=== PATIENT | male | born 1975 | race Caucasian/White ===

== ENCOUNTER 2021-05-01 21:03 | Emergency (ER) | payer SELFPAY ==
[2021-05-01 21:03] VITALS: BP 166/90; PULSE 94; RESP 16; TEMP 36.4; O2SAT 99; BMI 33.4
--- NOTE | 2021-05-01 21:27 | RAD_ITS ---
STUDY: X-RAY - LEFT HAND REASON FOR EXAM: Male, 46 years old. Check for foreign body after drill related injury TECHNIQUE: 2 radiographic view(s) of the hand. COMPARISON: None. FINDINGS: Normal radiocarpal articulation. Normal distal radioulnar joint. Normal visualized carpal bones. Normal carpal articulations Normal carpometacarpal articulation of the thumb. Normal second through fifth carpometacarpal joints. Normal metacarpi. Normal metacarpophalangeal joint of the thumb. Normal interphalangeal joint of the thumb. Normal proximal and distal phalanges of the thumb. Normal metacarpophalangeal joints of the second through fifth fingers. Normal proximal and distal interphalangeal joints of the second through fifth fingers. Normal phalanges of the second through fifth fingers. Metallic density foreign body ulnar to the fifth metacarpal. RAD/Hand 2 Views IMPRESSION: Metallic density foreign body lateral to the fifth metacarpal. Electronically Signed: Rainer Roberto MD at 22:19 EDT Tel , Service support ,
[2021-05-01] MEDS: Diphth,Pertuss(Acell),Tet Vac 0.5 ML Vial IM (22:48)
[2021-05-01] MEDS: Cephalexin 250 MG Capsule 500 MG PO (22:48)
--- NOTE | 2021-05-01 23:50 | EX.ED.GENINJ ---
HPI History of Present Illness Chief Complaint: Trauma Informant: patient Narrative Narrative: Patient was using a drill to drill through the thermostat. He is right-hand dominant. He drilled accidentally into the lateral aspect of his left index finger overlying the proximal phalanx. It was mostly on the volar side. He is not sure how deep it went. He did state that it bled initially but then stopped quickly by itself. No immunosuppression. Unknown tetanus. Nothing really makes symptoms better or worse. It does not hurt that much. PFSH PFSH Home Medications Omeprazole [Prilosec] 40 mg PO DAILY 05/09/17 [History Last Taken Unknown] cephalexin 500 mg PO Q6 #28 cap 05/01/21 [Rx Last Taken Unknown] Allergy/AdvReac Type Severity Reaction Status Date / Time No Known Allergies Allergy Verified 05/01/21 21:06 Social History Smoking Status: Never smoker ROS ROS ED Constitutional Constitutional ED: Denies fever(s) Gastrointestinal Gastrointestinal: Denies nausea or vomiting Musculoskeletal Musculoskeletal: Reports other Details: Finger pain as in history of present illness. Integumentary Reports other Details: Puncture as in history of present illness Neurologic Neurologic: Denies paresthesias or weakness Hematologic/Lymphatic Hematologic/Lymphatic: Denies easy bleeding or easy bruising EXAM Physical Exam Const Vital Signs: 05/01/21 21:03 05/01/21 21:19 Temperature 97.6 F L Temperature Source Temporal Pulse Rate 94 Respiratory Rate 16 Respiratory Effort Normal Respiratory Depth Normal Respiratory Pattern Normal Blood Pressure 166/90 H Blood Pressure Mean 115 Pulse Ox 99 Oxygen Delivery Method Room Air Room Air Positive well nourished and well developed General Appearance ED: well developed and NAD HEENT atraumatic Resp normal respiratory effort Extremity Extremity Narrative: Patient does have what appears to be a puncture injury consistent with his story. It is on the lateral slightly volar aspect of the left index finger overlying the proximal phalanx. Both profundus and superficial tendons are intact and normal. They are not painful to move. There is no distal numbness or tingling. He has good capillary refill diffusely. No sign of digital vessel or nerve injury clinically. Neuro no sensory deficits noted Sensorium / Orientation: alert Motor Exam: strength 5/5 throughout Skin Skin Narrative: Puncture as above. MDM MDM MDM Narrative Medical decision making narrative: X-rays was done. There is metallic foreign body in the hand but its lateral to the fifth metacarpal nowhere near the area of injury. The area was already soaked and cleaned. We will start him on antibiotics. I discussed infection including signs of flexor tenosynovitis and reasons to return with him. Radiography Diagnostic Testing: Radiology Impression Hand X-Ray 05/01/21 21:27 IMPRESSION: Metallic density foreign body lateral to the fifth metacarpal. Electronically Signed: Rainer Roberto MD at 22:19 EDT Tel , Service support , Discharge Plan Triage Chief Complaint: Trauma ED Provider: Avelino Smart Dx/Rx/DC Orders Clinical Impression: Puncture wound of left index finger Instructions: ED Puncture Wound (General) Prescriptions: New cephalexin [cephalexin] 500 MG capsule 500 mg PO Q6 Qty: 28 RF: 0 No Action Omeprazole [Prilosec] 40 MG capsule 40 mg PO DAILY RF: 0 Primary Care Provider: Care Physician,No Primary Referrals: Alireza Lara DO [STAFF PHYSICIAN] - 3-5 Days if not improving Care Physician,No Primary [Primary Care Provider] - Disposition Disposition: Home, Self Care
== END 2021-05-02 00:04 | disposition home or self-care (01) ==
PROVIDERS: Emergency Provider Emergency Medicine
DX: S61.231A Puncture wound without foreign body of left index finger without damage to nail, initial encounter (principal); Z23 Encounter for immunization; W29.8XXA Contact with other powered hand tools and household machinery, initial encounter; Y93.9 Activity, unspecified; Y92.9 Unspecified place or not applicable; Y99.9 Unspecified external cause status
CPT/HCPCS: 73120; 90471; 90715; 99283

== ENCOUNTER 2021-08-20 15:30 | Emergency (ER) | payer BC, SELFPAY ==
[2021-08-20 15:31] VITALS: BP 117/79; PULSE 96; RESP 20; TEMP 36.7; O2SAT 95; BMI 31.8
--- NOTE | 2021-08-20 15:48 | EKG12_ITS ---
Test Reason : SOB Blood Pressure : / mmHG Vent. Rate : 096 BPM Atrial Rate : 096 BPM P-R Int : 128 ms QRS Dur : 100 ms QT Int : 346 ms P-R-T Axes : -05 058 012 degrees QTc Int : 437 ms Normal sinus rhythm Normal ECG Confirmed by ARABELLA LEBLANC, ALMA ([id number]), editor in chief MAK ZHENG ([id number]) on 08/24/2021 10:03:46 AM Referred By: PL Confirmed By:ALMA BELL MD
--- NOTE | 2021-08-20 15:49 | EX.ED.DYSGE1 ---
HPI History of Present Illness Chief Complaint: Shortness of Breath Informant: patient and other (Note sent in by .) Narrative Narrative: Patient had positive Covid test on the . He is not exactly sure when he started with symptoms. He had a little bit of GI upset on the through . This resolved. He felt fine through the . Then about the he started getting achy and fevers. Some nasal congestion. If that was the start of his Covid, he would be about day 7 of the symptoms. He has had some cough and occasional clear sputum. No blood. He is not short of breath. He does have myalgias. He had some slight headaches but that is improving. He has had diarrhea but not nausea and vomiting. His appetite is down. It seems like one of his 's big concerns is that he is not eating and drinking enough. He is able to eat and drink he is just not interested. He did not have Covid vaccines. He is not a smoker. He has no chronic medical conditions. He has no personal history of DVT PE. He has no travel surgery or immobilization. No family history of DVT or PE. He has had no hemoptysis, chest pain, pleuritic pain or leg pain or swelling. PFSH PFSH Home Medications Omeprazole [Prilosec] 40 mg PO DAILY 05/09/17 [History Last Taken Unknown] cephalexin 500 mg PO Q6 #28 cap 05/01/21 [Rx Last Taken Unknown] Allergy/AdvReac Type Severity Reaction Status Date / Time No Known Allergies Allergy Verified 05/01/21 21:06 Social History Smoking Status: Never smoker ROS ROS ED Constitutional Constitutional ED: Reports chills, fever(s) and subjective; Denies weight loss Eyes Eyes: Denies blurry vision or change in vision ENT ENT ED: Reports rhinorrhea; Denies sore throat Cardiovascular Cardiovascular: Denies chest pain or palpitations Respiratory/Chest Respiratory/Chest: Reports cough and sputum; Denies dyspnea or dyspnea on exertion Gastrointestinal Gastrointestinal: Reports diarrhea; Denies abdominal pain, nausea or vomiting Genitourinary Genitourinary ED: Denies dysuria or hematuria Musculoskeletal Musculoskeletal: Reports myalgias Integumentary Denies rash Neurologic Neurologic: Denies headache(s) Psychiatric Psychiatric: Denies anxiety or depression Endocrine Endocrinology: Denies polydipsia or polyuria Allergic/Immunologic Allergic/Immunologic ED: Denies urticaria EXAM Physical Exam Const Vital Signs: 08/20/21 15:31 08/20/21 16:05 08/20/21 16:23 Temperature 98.1 F Temperature Source Oral Pulse Rate 96 92 Respiratory Rate 20 H 18 Respiratory Effort Short of Breath Blood Pressure 117/79 Blood Pressure Mean 91 Pulse Ox 95 Oxygen Delivery Method Room Air Room Air Positive well nourished and well developed General Appearance ED: well developed and NAD; Negative for cyanotic, diaphoretic or pallor HEENT Reports moist mucous membranes Eyes PERRL Neck no JVD Chest Wall inspection of chest normal Resp normal respiratory effort and No clear to auscultation bilaterally Effort and Inspection: Negative for pain with movement Auscultation: rhonchi; Negative for rales, wheezes or diminished lung sounds Cardio regular rate and regular rhythm GI normal to inspection, nondistended, normoactive bowel sounds and non-tender Palpation: soft Back/Spine no CVA tenderness Extremity normal to inspection General Extremety ED: Negative for edema or tenderness General Extremity: Negative for edema Neuro oriented x3 Sensorium / Orientation: alert Psych mental status grossly normal Skin no rashes or lesions noted General Skin Exam: Negative for jaundice or pallor MDM MDM MDM Narrative Medical decision making narrative: Patient CBC shows a low white count consistent with positive Covid. Electrolytes are unremarkable. There is no sign of significant dehydration. Chest x-ray is consistent with multifocal infiltrates consistent with Covid. We are going to walk him. If he is not hypoxic he can go home. The lowest sat we have seen sitting still was 90%. However, when he walked his sats went up to 95% he did much better. He is about 1 week into his symptoms. Because of his BMI we can get him monoclonal therapy. He does not meet criteria for Decadron. We will get him home at this time. Monoclonal antibody reference sheet was filled out for the patient. We discussed reasons to return. Lab Data Attestation: I reviewed the patient's lab results. Labs: Laboratory Results - last 24 hr 08/20/21 08/20/21 15:55 15:55 WBC 4.1 L RBC 5.57 Hgb 15.8 Hct 47.3 MCV 84.9 MCH 28.4 MCHC 33.4 RDW Std Deviation 38.5 RDW Coeff of Viri 12.4 Plt Count 125 L MPV 11.0 Immature Gran % (Auto) 0.200 Neut % (Auto) 74.0 H Lymph % (Auto) 17.7 L Mcpherson % (Auto) 7.9 Eos % (Auto) 0.0 Baso % (Auto) 0.2 Absolute Neuts (auto) 3.0 Absolute Lymphs (auto) 0.72 L Nucleated RBC % 0 Sodium 136 Potassium 3.7 Chloride 101 Carbon Dioxide 28.0 Anion Gap 7 BUN 16 Creatinine 1.21 Estim Creat Clear Calc 83.73 Est GFR (MDRD) Af Amer 83 Est GFR (MDRD) Non-Af 69 BUN/Creatinine Ratio 13.2 Glucose 105 Calcium 8.8 Radiography Diagnostic Testing: Clinical Impression(s) from Imaging Studies Chest X-Ray 08/20/21 16:05 IMPRESSION: Multifocal infiltrates with features commonly reported with COVID pneumonia. Electronically Signed: Zak Gunderson MD (Brooks) at 16:36 EST , Service support , Discharge Plan Triage Chief Complaint: Shortness of Breath ED Provider: Avelino Smart Dx/Rx/DC Orders Clinical Impression: Pneumonia due to 2019 novel coronavirus, Myalgia Instructions: Coronavirus Disease 2019 (COVID-19): Caring for Yourself or Others Prescriptions: No Action Omeprazole [Prilosec] 40 MG capsule 40 mg PO DAILY RF: 0 cephalexin [cephalexin] 500 MG capsule 500 mg PO Q6 Qty: 28 RF: 0 Primary Care Provider: Care Physician,No Primary Referrals: Cathie Robins DO [STAFF PHYSICIAN] - 1 Week if not improving Care Physician,No Primary [Primary Care Provider] - Disposition Disposition: Home, Self Care
[2021-08-20 16:04] LABS: Absolute Lymphocyte Count 0.72 X10^3/uL (0.83-4.51); Basophil# 0.01 X10^3/uL; Basophil% 0.2 % (0-1); Hematocrit 47.3 % (40-54); Hemoglobin 15.8 g/dL (13.0-16.5); Lymphocyte # 0.72 X10^3/ul (0.83-4.51); Lymphocyte % 17.7 % (19-41); Mean Corp Hgb Conc 33.4 g/dL (32-36); Mean Corpuscular Hgb 28.4 pg (27.0-32.0); Mean Corpuscular Volume 84.9 fL (80-94); Monocyte# 0.32 X10^3/uL; Monocyte% 7.9 % (0-10); NRBC Flagged by Analyzer 0 % (0-5); Platelet Count 125 K/mm3 (150-450); RBC Distribution Width CV 12.4 % (11.6-14.6); RBC Distribution Width SD 38.5 fl (35.1-43.9); Red Blood Count 5.57 M/mm3 (4.6-6.2); White Blood Count 4.1 K/mm3 (4.4-11.0)
[2021-08-20] MEDS: Ipratropium/Albuterol Sulfate 3 ML AMPUL.NEB INHALATION (16:04)
[2021-08-20 16:05] VITALS: PULSE 92; RESP 18
--- NOTE | 2021-08-20 16:05 | RAD_ITS ---
STUDY: X-RAY CHEST REASON FOR EXAM: Male, 46 years old. covid TECHNIQUE: AP COMPARISON: None. FINDINGS: Multifocal infiltrates with features commonly reported with COVID pneumonia. There is no demonstrated pleural abnormality. Normal size heart. Normal mediastinum and enoc. Normal visualized pulmonary arteries. Normal visualized aortic arch and descending thoracic aorta. Normal visualized thoracic spine. Normal visualized ribs, clavicles, and shoulders. There is no demonstrated abnormality of the visualized soft tissue structures of the upper abdomen. RAD/Chest 1 View (Portable) IMPRESSION: Multifocal infiltrates with features commonly reported with COVID pneumonia. Electronically Signed: Zak Gunderson MD (Brooks) at 16:36 EST , Service support ,
[2021-08-20 16:23] VITALS: O2SAT 95
[2021-08-20 16:26] LABS: Anion Gap 7 (5-15); BUN 16 mg/dL (7-18); BUN/Creat Ratio 13.2 RATIO (10-20); Calcium,Total 8.8 mg/dL (8.5-10.1); Chloride 101 mmol/L (98-107); Creatinine, Serum 1.21 mg/dL (0.70-1.30); EST Glomerular Filtration Rate 69 mL/min (>60); Est Glom Filt Rate - Afr Amer 83 mL/min (>60); Estimated Creatinine Clearance 83.73 ml/min; Glucose 105 mg/dL (74-106); Potassium 3.7 mmol/L (3.5-5.1); Sodium Level 136 mmol/L (136-145)
[2021-08-20 17:26] VITALS: O2SAT 90
[2021-08-20 18:12] VITALS: RESP 18
== END 2021-08-20 18:16 | disposition home or self-care (01) ==
PROVIDERS: Emergency Provider Emergency Medicine
DX: U07.1 COVID-19 (principal); J12.82 Pneumonia due to coronavirus disease 2019
CPT/HCPCS: 71045; 80048; 85025; 93005; 94640; 99283; A4216

== ENCOUNTER 2021-08-22 18:26 | Outpatient (CLI) | payer SELFPAY ==
[2021-08-22 18:29] VITALS: BP 105/72; PULSE 110; RESP 24; TEMP 37.6; O2SAT 86
--- NOTE | 2021-08-22 18:40 | NURSING ---
Pt taken to ED via wheelchair since O2 sat 86-87% on RA. Pt no longer qualifies for monoclonal infusion. Dr Oneal notified. Pt placed on O2 at 2L.
== END 2021-08-22 23:59 | disposition home or self-care (01) ==
LOC: MS3OUT 18:27 → MS3 18:27
PROVIDERS: Referring Provider Emergency Medicine; Visit Provider Emergency Medicine
DX: Z23 Encounter for immunization (principal); U07.1 COVID-19
CPT/HCPCS: Q0240

== ENCOUNTER 2021-08-22 18:50 | Inpatient (IN) | payer BC, SELFPAY ==
[2021-08-22] VITALS (10 sets, daily range): BP systolic 109–121; BP diastolic 71–86; PULSE 72–111; RESP 2–24; TEMP 35.6–37.3; O2SAT 90–97; BMI 31.8; BMI 31.7
--- NOTE | 2021-08-22 19:57 | CT_ITS ---
STUDY: CTA CHEST REASON FOR EXAM: Male, 46 years old. covid pulmonary embolism RADIATION DOSAGE (If Supplied By Facility): CTDIvol = ( 11.39 ) mGy, DLP = ( 520.96 ) mGycm TECHNIQUE: The examination was performed with the intravenous administration of IV 100mL Isovue-370. Post-processing of the angiographic images was performed, with multiplanar reformation and 3D reconstruction. Individualized dose optimization techniques were used for this CT. COMPARISON: Chest x-ray dated August 20, 2021 FINDINGS: Multiple primarily peripheral islands of consolidation are scattered throughout both lungs with superimposed groundglass edema which is a classic finding of Covid 19 pneumonia. Mild reactive hilar adenopathy is also present. Trace bilateral pleural effusions noted. Normal enhancement of the main pulmonary artery and right and left pulmonary arteries. There is limited enhancement of the bilateral peripheral pulmonary arteries, but no large or obvious evidence of pulmonary embolus. There is no demonstrated pulmonary embolism of the main pulmonary artery branches. Normal thoracic aorta and visualized great vessels. There is no demonstrated aortic dissection. Normal heart and pericardium. Normal mediastinum. Normal hilar regions. Normal visualized trachea and bronchi. The lungs are well expanded. Normal pleura. Normal chest wall structures. Normal osseous structures. Unremarkable visualized upper abdomen. Mildly enlarged fatty liver noted. IMPRESSION: Moderate bilateral pneumonia with classic features of Covid 19 1. Multiple primarily peripheral islands of consolidation are scattered throughout both lungs with superimposed groundglass edema which is a classic finding of Covid 19 pneumonia. Mild reactive hilar adenopathy is also present. Trace bilateral pleural effusions noted. 2. There is limited enhancement of the bilateral peripheral pulmonary arteries, but no large or obvious evidence of pulmonary embolus. There is no demonstrated pulmonary embolism of the main pulmonary artery branches. Electronically Signed: Peter Schmidt MD at 21:10 EST , Service support , CT/CTA Chest W/WO Contrast
--- NOTE | 2021-08-22 19:58 | EKG12_ITS ---
Test Reason : SOB Blood Pressure : / mmHG Vent. Rate : 105 BPM Atrial Rate : 105 BPM P-R Int : 136 ms QRS Dur : 098 ms QT Int : 332 ms P-R-T Axes : 007 080 012 degrees QTc Int : 438 ms Sinus tachycardia NONSPECIFIC TWAVE ABNORMALITY Confirmed by ARABELLA LEBLANC, ALMA ([id number]), subeditor MAK ZHENG ([id number]) on 08/23/2021 11:11:47 AM Referred By: JACY Confirmed By:ALMA BELL MD
--- NOTE | 2021-08-22 19:59 | EDS_ITS ---
HPI History of Present Illness Chief Complaint: Shortness of Breath Informant: patient Narrative Narrative: 46-year-old male presenting to the emergency department with hypoxemia. Patient states that he has been sick for about a month but there is a period of time where he felt pretty good it was felt that his Covid symptoms has been since around the or . He was seen in the emergency department on 08/21/21. He got set up for monoclonal antibodies which he went to today they noted a pulse ox of 86%. Patient states the past couple days have seems significantly worse in terms of his breathing. He notes cough with sputum production. PFSH PFSH Medical History no medical history Home Medications Omeprazole [Prilosec] 40 mg PO DAILY 05/09/17 [History Last Taken Unknown] Allergy/AdvReac Type Severity Reaction Status Date / Time No Known Allergies Allergy Verified 08/22/21 18:53 Surgical History no surgical history Social History Smoking Status: Never smoker substance use type: does not use ROS ROS ED Constitutional Constitutional ED: Reports fever(s); Denies chills or weight loss Eyes Eyes: Denies change in vision or diplopia ENT ENT ED: Reports rhinorrhea and sore throat; Denies ear pain Cardiovascular Cardiovascular: Denies chest pain, orthopnea, palpitations or racing heartbeat Respiratory/Chest Respiratory/Chest: Reports cough, dyspnea, dyspnea on exertion and sputum; Denies orthopnea Gastrointestinal Gastrointestinal: Reports diarrhea and nausea; Denies abdominal pain or vomiting Genitourinary Genitourinary ED: Denies dysuria, hematuria or urinary frequency Musculoskeletal Musculoskeletal: Reports myalgias; Denies arthralgias Integumentary Denies abscess or rash Neurologic Neurologic: Reports headache(s); Denies weakness Psychiatric Psychiatric: Denies anxiety, depression, suicidal ideation or suicidal thoughts Endocrine Endocrinology: Denies polydipsia, polyphagia or polyuria Allergic/Immunologic Allergic/Immunologic ED: Denies mouth swelling, tongue swelling or urticaria EXAM Physical Exam Const Vital Signs: 08/22/21 18:50 08/22/21 19:42 08/22/21 19:57 Temperature 96.1 F L Temperature Source Temporal Pulse Rate 111 H 104 H Respiratory Rate 16 2 L 24 H Respiratory Effort Respiratory Depth Respiratory Pattern Blood Pressure 112/71 121/86 H Blood Pressure Mean 84 97 Pulse Ox 93 91 91 Oxygen Delivery Method Nasal Cannula Nasal Cannula Nasal Cannula Oxygen Flow Rate (L/min) 2 2 2 08/22/21 19:58 08/22/21 21:15 Temperature Temperature Source Pulse Rate 72 Respiratory Rate 20 H Respiratory Effort Short of Breath Respiratory Depth Deep Respiratory Pattern Hyperpnea Blood Pressure 118/78 Blood Pressure Mean 91 Pulse Ox 90 Oxygen Delivery Method Nasal Cannula Nasal Cannula Oxygen Flow Rate (L/min) 2 2 Positive well nourished and well developed General Appearance ED: well developed HEENT Reports normocephalic, head/scalp atraumatic, TM's clear and moist mucous membranes atraumatic Tympanic Membrane ED: Yes TM's clear Eyes PERRL and EOMs intact bilaterally Neck no lymphadenopathy, supple and no JVD Resp normal respiratory effort and clear to auscultation bilaterally Cardio regular rhythm and no murmurs Rate: tachycardic GI normal to inspection, nondistended, normoactive bowel sounds, non-tender and no masses Palpation: soft Back/Spine no CVA tenderness and normal ROM Extremity normal to inspection General Extremety ED: Negative for edema General Extremity: Negative for edema Neuro oriented x3 and CN's II-XII intact bilaterally Sensorium / Orientation: alert Motor Exam: strength 5/5 throughout Psych mental status grossly normal Mood & Affect: Negative for depressed or tearful Skin no rashes or lesions noted and no wounds Rashes: no rashes MDM MDM MDM Narrative Medical decision making narrative: CBC BMP negative. The CTA does not demonstrate a pulmonary embolism but does demonstrate bilateral areas of infiltrate. On 4 L the patient is hypoxic with ambulation. Patient received a dose of Decadron. I will speak with the hospitalist regarding admission. Lab Data Attestation: I reviewed the patient's lab results. Labs: Laboratory Results - last 24 hr 08/22/21 08/22/21 19:50 19:50 WBC 6.0 RBC 5.37 Hgb 15.1 Hct 45.1 MCV 84.0 MCH 28.1 MCHC 33.5 RDW Std Deviation 37.8 RDW Coeff of Viri 12.3 Plt Count 174 MPV 11.0 Immature Gran % (Auto) 0.800 Neut % (Auto) 83.6 H Lymph % (Auto) 7.2 L Callahan % (Auto) 8.2 Eos % (Auto) 0.0 Baso % (Auto) 0.2 Absolute Neuts (auto) 5.0 Absolute Lymphs (auto) 0.43 L Nucleated RBC % 0 Differential Comment SCANNED Sodium 134 L Potassium 3.9 Chloride 100 Carbon Dioxide 27.0 Anion Gap 7 BUN 22 H Creatinine 1.24 Estim Creat Clear Calc 81.70 Est GFR (MDRD) Af Amer 81 Est GFR (MDRD) Non-Af 67 BUN/Creatinine Ratio 17.7 Glucose 118 H Calcium 8.8 Radiography Diagnostic Testing: Clinical Impression(s) from Imaging Studies Chest CTA 08/22/21 19:57 EKG Initial EKG: Attestation: I personally reviewed and interpreted this EKG as follows: Comments: Sinus tachycardia with a ventricular rate of 105 bpm. No concerning features of ACS Discharge Plan Dx/Rx/DC Orders Clinical Impression: COVID-19, Acute hypoxemic respiratory failure Disposition Disposition: [facility]
[2021-08-22 20:14] LABS: Absolute Lymphocyte Count 0.43 X10^3/uL (0.83-4.51); Basophil# 0.01 X10^3/uL; Basophil% 0.2 % (0-1); Hematocrit 45.1 % (40-54); Hemoglobin 15.1 g/dL (13.0-16.5); Lymphocyte # 0.43 X10^3/ul (0.83-4.51); Lymphocyte % 7.2 % (19-41); Mean Corp Hgb Conc 33.5 g/dL (32-36); Mean Corpuscular Hgb 28.1 pg (27.0-32.0); Monocyte# 0.49 X10^3/uL; Monocyte% 8.2 % (0-10); NRBC Flagged by Analyzer 0 % (0-5); Neutrophil # 4.97 X10^3/uL (2.7-7.7); Neutrophil % 83.6 % (47-70); POSITIVE DIFFERENTIAL YES; Platelet Count 174 K/mm3 (150-450); RBC Distribution Width CV 12.3 % (11.6-14.6); RBC Distribution Width SD 37.8 fl (35.1-43.9); Red Blood Count 5.37 M/mm3 (4.6-6.2)
[2021-08-22 20:18] LABS: Differential Indicated SCAN CRITERIA MET
[2021-08-22 20:30] LABS: Anion Gap 7 (5-15); BUN 22 mg/dL (7-18); BUN/Creat Ratio 17.7 RATIO (10-20); Calcium,Total 8.8 mg/dL (8.5-10.1); Chloride 100 mmol/L (98-107); Creatinine, Serum 1.24 mg/dL (0.70-1.30); EST Glomerular Filtration Rate 67 mL/min (>60); Est Glom Filt Rate - Afr Amer 81 mL/min (>60); Glucose 118 mg/dL (74-106); Potassium 3.9 mmol/L (3.5-5.1); Sodium Level 134 mmol/L (136-145)
[2021-08-22 20:48] LABS: Differential Comment SCANNED
[2021-08-22] MEDS: dexAMETHasone 4 MG Tablet 6 MG PO (22:08)
--- NOTE | 2021-08-22 22:10 | HP.PCM.HOS_ITS ---
HPI - General General Date of Admission: 08/22/21 HPI Narrative GARRICK MEDINA, is a 46 M with a significant history of GERD on Prilosec who presents to the emergency department with progressively worsening Covid-like symptoms. Reportedly he tested positive for COVID-19 on August 15, 2021. About a month ago he had flulike symptoms that resolved. However he began to develop a Covid- like symptoms from August 11, 2021. He reported symptoms as fatigue, myalgia, anorexia, lightheadedness, malaise, chills, fever, intermittent fever with productive cough. He reports a home temperature highest of which is 101+. On the day of presentation patient went for monoclonal antibody. Because he was hypoxic while receiving monoclonal antibody patient was sent to the emergency department. Reportedly at the emergency department his oxygen saturation was in the 80s even on 4 L. With ambulation his oxygen saturation continued to be low. [facility]LY [facility] Medical History GERD (gastroesophageal reflux disease) Medical History no medical history Home Medications Omeprazole [Prilosec] 40 mg PO DAILY 05/09/17 [History Last Taken Unknown] Allergy/AdvReac Type Severity Reaction Status Date / Time No Known Allergies Allergy Verified 08/22/21 18:53 Family History Other Cancer Heart disease Surgical History History of appendectomy Surgical History no surgical history Social History Smoking Status: Never smoker substance use type: does not use ROS ROS Narrative Constitutional: Reports fever, chills, fatigue, anorexia .denies change in weight Eyes: Denies blurry vision, change in eye color, change in vision, discharge from eye(s), double vision, erythema, eye pain, loss of vision or other HEENT: Denies abnormal hearing, dysphagia, ear pain, epistaxis, headache(s), hearing loss, nasal congestion, nasal discharge, post nasal drip, sinus pressure, sore throat or other Cardiovascular: Denies chest pain or palpitations. Respiratory/Chest: Reports cough, phlegm production. Reports shortness of breath and wheezes. Gastrointestinal: Denies abdominal pain, coffee ground emesis, constipation, diarrhea, dyspepsia, hematemesis, hematochezia, loose stools, melena, nausea, vomiting or other Genitourinary: Denies burning urination, difficulty urinating, dysuria, hematuria, nocturia, urinary frequency, urinary hesitancy, urinary incontinence, urinary urgency or other Musculoskeletal: Reports myalgia. Denies arthralgias, back pain, joint pain, joint stiffness, joint swelling, neck pain or other Neurologic: Denies abnormal gait, abnormal speech, confusion, disequilibrium, focal weakness, headache(s), numbness, paresthesias, seizure-like activity, seizures, syncope, tingling, tremor(s) or other Psychiatric: Denies anxiety, depression, homicidal ideation, suicidal ideation or other Endocrinology: Denies change in body appearance, cold intolerance, excessive sweating, heat intolerance, polydipsia, polyuria or other Hematologic/Lymphatic: Denies anemia, easy bleeding, easy bruising, lymphadenopathy or other Integumentary: Denies rashes Allergic/Immunologic: Denies rhinitis, hives, eczema, asthma or other Vital Signs Vital Signs Vital Signs: 08/22/21 18:50 08/22/21 19:42 08/22/21 19:57 Temperature 96.1 F L Temperature Source Temporal Pulse Rate 111 H 104 H Respiratory Rate 16 2 L 24 H Respiratory Effort Respiratory Depth Respiratory Pattern Blood Pressure 112/71 121/86 H Blood Pressure Mean 84 97 Pulse Ox 93 91 91 Oxygen Delivery Method Nasal Cannula Nasal Cannula Nasal Cannula Oxygen Flow Rate (L/min) 2 2 2 08/22/21 19:58 08/22/21 21:15 08/22/21 22:04 Temperature 99.1 F Temperature Source Oral Pulse Rate 72 99 Respiratory Rate 20 H 20 H Respiratory Effort Short of Breath Respiratory Depth Deep Respiratory Pattern Hyperpnea Blood Pressure 118/78 109/83 H Blood Pressure Mean 91 91 Pulse Ox 90 97 Oxygen Delivery Method Nasal Cannula Nasal Cannula Nasal Cannula Oxygen Flow Rate (L/min) 2 2 4 Weight Weight: 106.594 kg Body Mass Index (BMI) 31.8 Physical Exam Narrative Physical exam: General: Well-nourished, well-developed. Head: Normocephalic, atraumatic, no tenderness Eyes: PERRLA, EOMI ENT, no trauma, moist mucous membranes, no rhinorrhea Neck: Nontender, full range of motion, no spinal tenderness, deformities, step- off CVS: Tachycardia. S1-S2 present. No murmur, gallop or rub. Respiratory : Tachypnea, Rales, chest wall nontender, no wheezing Abdomen: Soft, nontender, nondistended, normal bowel sounds, no masses : Deferred Back: Nontender, no CVA tenderness, no midline spinal tenderness, deformities, step-offs Extremities: Nontender full range of motion, no trauma Skin: Normal color, no trauma, abrasions Neuro: Alert, oriented, cranial nerves II through XII grossly intact. Psychiatry: Normal mood. Normal affect. Not depressed. Not anxious. Results Lab / Micro Data Result Diagrams: 08/22/21 19:50 08/22/21 19:50 Labs: Laboratory Results - last 24 hr 08/22/21 19:50: WBC 6.0, RBC 5.37, Hgb 15.1, Hct 45.1, MCV 84.0, MCH 28.1, MCHC 33.5, RDW Std Deviation 37.8, RDW Coeff of Viri 12.3, Plt Count 174, MPV 11.0, Immature Gran % (Auto) 0.800, Neut % (Auto) 83.6 H, Lymph % (Auto) 7.2 L, [place] % (Auto) 8.2, Eos % (Auto) 0.0, Baso % (Auto) 0.2, Absolute Neuts (auto) 5.0, Absolute Lymphs (auto) 0.43 L, Nucleated RBC % 0, Differential Comment SCANNED 08/22/21 19:50: Sodium 134 L, Potassium 3.9, Chloride 100, Carbon Dioxide 27.0, Anion Gap 7, BUN 22 H, Creatinine 1.24, Estim Creat Clear Calc 81.70, Est GFR (M DRD) Af Amer 81, Est GFR (MDRD) Non-Af 67, BUN/Creatinine Ratio 17.7, Glucose 118 H, Calcium 8.8 Radiology Impression Chest CTA 08/22/21 19:57 Assessment & Plan Assessment/Plan (1) Pneumonia due to 2019 novel coronavirus: PLAN: Acute hypoxemic respiratory failure secondary to SARS- COV 2 Documented oxygen saturation of 86% on room air at the emergency department. Tachypnea with highest respiratory rate of 24. Oxygen supplementation started in the emergency department and continued. Continued. Reports positive coronavirus test outpatient. Chest x-ray independently interpreted showed multifocal infiltrates and agree radiologist interpretation. Chest CTA with multifocal infiltrates but with no pulmonary embolism. CBC showed normal white counts but with neutrophilia of 83.6% and lymphopenia of 7.2%. Received Decadron IV at the emergency department. Decadron p.o. ordered while inpatient. Review of labs showed a creatinine clearance of more than 30. AST is mildly elevated at 54. ALT is normal. Will start patient on remdesivir and will trend CMP. Tylenol for fever As needed Tessalon pills ordered. Charges/Coding Visit Charges Inpatient E&M: 59365 Init Hosp L2
[2021-08-22 22:14] LABS: AST(SGOT) 54 U/L (15-37); Alanine Aminotransfer ALT/SGPT 42 U/L (16-61); Albumin, Serum 2.9 g/dL (3.2-5.0); Alkaline Phosphatase 83 U/L (45-117); Bilirubin, Direct 0.19 mg/dL (0.00-0.30); Globulin 4.4 g/dL (2.2-4.2); Protein, Total 7.3 g/dL (6.4-8.2)
[2021-08-22 22:40] LABS: BNP,B-Type NATRIURETIC PEPTIDE 7.3 pg/mL (0-100)
[2021-08-22 22:43] LABS: Troponin-I HS 8 pg/mL (3.0-78.0)
[2021-08-23] VITALS (9 sets, daily range): BP systolic 108–132; BP diastolic 61–82; PULSE 80–103; RESP 18–20; TEMP 36.5–38; O2SAT 90–94
[2021-08-23] MEDS: Acetaminophen 325 MG Tablet 650 MG PO (01:25)
[2021-08-23] MEDS: 0.9% Saline Lock 10 ML Syringe IV ×3 (01:28→21:05)
--- NOTE | 2021-08-23 04:15 | PCS.PANDOC ---
PANDEMIC DOCUMENTATION INITIATED: Date: 04/04/2021 Time: 190
[2021-08-23 07:59] LABS: Absolute Neutrophil Count 2.5 X10^3/uL (2.0-7.7); Hematocrit 43.7 % (40-54); Hemoglobin 14.4 g/dL (13.0-16.5); Lymphocyte % 12.9 % (19-41); Mean Corpuscular Hgb 27.6 pg (27.0-32.0); Mean Corpuscular Volume 83.7 fL (80-94); Mean Platelet Vol. 11.4 fl (6.2-12.0); Monocyte# 0.21 X10^3/uL; Monocyte% 6.8 % (0-10); NRBC Flagged by Analyzer 0 % (0-5); Neutrophil # 2.45 X10^3/uL (2.7-7.7); Neutrophil % 79.3 % (47-70); POSITIVE DIFFERENTIAL YES; Platelet Count 157 K/mm3 (150-450); RBC Distribution Width CV 12.3 % (11.6-14.6); RBC Distribution Width SD 37.8 fl (35.1-43.9); Red Blood Count 5.22 M/mm3 (4.6-6.2); White Blood Count 3.1 K/mm3 (4.4-11.0)
[2021-08-23 08:03] LABS: Differential Indicated SCAN CRITERIA MET
[2021-08-23 08:36] LABS: ALB/GLOB Ratio 0.6 RATIO (0.9-2.4); AST(SGOT) 44 U/L (15-37); Alanine Aminotransfer ALT/SGPT 36 U/L (16-61); Albumin, Serum 2.6 g/dL (3.2-5.0); Alkaline Phosphatase 75 U/L (45-117); Anion Gap 9 (5-15); BUN 23 mg/dL (7-18); BUN/Creat Ratio 22.5 RATIO (10-20); Calcium,Total 8.5 mg/dL (8.5-10.1); Chloride 103 mmol/L (98-107); Creatinine, Serum 1.02 mg/dL (0.70-1.30); EST Glomerular Filtration Rate 83 mL/min (>60); Est Glom Filt Rate - Afr Amer 101 mL/min (>60); Estimated Creatinine Clearance 99.32 ml/min; Globulin 4.2 g/dL (2.2-4.2); Glucose 142 mg/dL (74-106); Protein, Total 6.8 g/dL (6.4-8.2); Sodium Level 137 mmol/L (136-145)
[2021-08-23 09:00] LABS: Differential Comment SCANNED
[2021-08-23] MEDS: Pantoprazole Sodium 40 MG Tablet PO (11:00)
[2021-08-23] MEDS: Enoxaparin 30 MG/0.3 ML Syringe SC ×2 (11:01→21:05)
[2021-08-23] MEDS: dexAMETHasone 4 MG Tablet 6 MG PO (11:01)
--- NOTE | 2021-08-23 11:55 | CASEMGMT ---
JACQUI STEELE Assessment: Face to Face with pt for initial transition planning/care coordination assessment. JACQUI STEELE introduced self and role at [facility], pt voices understanding and consents to assessment. Pt is A/O x4 and answers all questions appropriately at this time. Pt lying in bed with O2 on in no distress. Care providers, pharmacy, and demographics verified/updated. Admitting Dx: COVID 19 PNA PCP: Pt denies having a PCP, agreeable to RN CEDRIC providing him with local healthcare directory of physicians. Specialists: Pt denies. Preferred Pharmacy: [facility] [place] Insurance: [place]- Pt states there is an issue with his insurance card and this is why the system states pt is self pay. He reports he does have insurance. Prescription Benefit: yes LW/HPOA: Pt denies having a LW/DPOA and denies need for info regarding AD. LNOK: Daisy Reich, Living Arrangements: Pt lives with in a single story house with 3 steps to enter. Pt reports he is I in ADL's and denies concerns at home. Transportation: Pt drives self and denies concerns with transportation. DME/HHC/SNF: Pt denies having any DME in the home. Recommended pt obtain a pulse ox, he states his thought she had one but could not find it. Pt denies hx of HHC or SNF stays. Pt tested positive for COVID at [facility] urgent [facility] in [place]. Pt is also positive. They have family who can provide them with groceries and supplies. Verbally provided pt with a local in network DME providers for [place] should he need home O2, pt denies preference. Pt states no concerns with going home at time of dc. Pt states no further concerns/needs. CM to follow. Advised pt to ask CM if any further question/concerns/needs arise, voices understanding. Pt Goal: Home Plan: Home, follow for O2.
--- NOTE | 2021-08-23 12:24 | PN.HOSP_ITS ---
Subjective Subjective Follow-up on acute hypoxic respiratory failure/acute COVID-19 pneumonia: Patient was seen and examined. He is currently on 4 L of oxygen. Denied any new complaints. Objective Data Objective Data Vital Signs: Vital Signs Temp Pulse Resp BP Pulse Ox 97.7 F L 84 20 H 114/78 90 08/23/21 10:15 08/23/21 10:15 08/23/21 10:15 08/23/21 10:15 08/23/21 10:15 Oxygen Flow Rate (L/min) 5 Oxygen Delivery Method Nasal Cannula Weight: 106.1 kg Body Mass Index (BMI) 31.7 Intake & Output: Intake and Output for Last 24 Hours 08/21/21 08/22/21 08/23/21 23:59 23:59 23:59 Intake Total 250 / 250 Balance 250 / 250 Lab / Micro Data Result Diagrams: 08/23/21 07:00 08/23/21 07:00 Labs: Laboratory Results - last 24 hr 08/22/21 19:50: WBC 6.0, RBC 5.37, Hgb 15.1, Hct 45.1, MCV 84.0, MCH 28.1, MCHC 33.5, RDW Std Deviation 37.8, RDW Coeff of Viri 12.3, Plt Count 174, MPV 11.0, Immature Gran % (Auto) 0.800, Neut % (Auto) 83.6 H, Lymph % (Auto) 7.2 L, [place] % (Auto) 8.2, Eos % (Auto) 0.0, Baso % (Auto) 0.2, Absolute Neuts (auto) 5.0, Absolute Lymphs (auto) 0.43 L, Nucleated RBC % 0, Differential Comment SCANNED 08/22/21 19:50: Sodium 134 L, Potassium 3.9, Chloride 100, Carbon Dioxide 27.0, Anion Gap 7, BUN 22 H, Creatinine 1.24, Estim Creat Clear Calc 81.70, Est GFR (MDRD) Af Amer 81, Est GFR (MDRD) Non-Af 67, BUN/Creatinine Ratio 17.7, Glucose 118 H, Calcium 8.8 08/22/21 19:50: Total Bilirubin 0.50, Direct Bilirubin 0.19, AST 54 H, ALT 42, Alkaline Phosphatase 83, Total Protein 7.3, Albumin 2.9 L, Globulin 4.4 H 08/22/21 19:50: Troponin I High Sens 8 08/22/21 19:50: B-Natriuretic Peptide 7.3 08/23/21 07:00: WBC 3.1 L, RBC 5.22, Hgb 14.4, Hct 43.7, MCV 83.7, MCH 27.6, MCHC 33.0, RDW Std Deviation 37.8, RDW Coeff of Viri 12.3, Plt Count 157, MPV 11.4, Immature Gran % (Auto) 1.000 H, Neut % (Auto) 79.3 H, Lymph % (Auto) 12.9 L, [place] % (Auto) 6.8, Eos % (Auto) 0.0, Baso % (Auto) 0.0, Absolute Neuts (auto) 2.5, Absolute Lymphs (auto) 0.40 L, Nucleated RBC % 0, Differential Comment SCANNED, Diff Path Review December08/23/21 07:00: Sodium 137, Potassium 4.0, Chloride 103, Carbon Dioxide 25.0, Anion Gap 9, BUN 23 H, Creatinine 1.02, Estim Creat Clear Calc 99.32, Est GFR (MDRD) Af Amer 101, Est GFR (MDRD) Non-Af 83, BUN/Creatinine Ratio 22.5 H, Glucose 142 H, Calcium 8.5, Total Bilirubin 0.50, AST 44 H, ALT 36, Alkaline Phosphatase 75, Total Protein 6.8, Albumin 2.6 L, Globulin 4.2, Albumin/Globulin Ratio 0.6 L Radiography Diagnostic Testing: Radiology Impression Chest CTA 08/22/21 19:57 Physical Exam Narrative Physical exam: General: Alert, Oriented x3, Cooperative, No apparent distress, Well developed HEENT: Atraumatic Oral: Moist Mucosa Neck: Supple Lungs: Diminished to auscultation Cardiovascular: HS I+II, regular, no murmurs Abdomen: Bowel Sounds Present, Soft, Non Tender Extremities: No edema Assessment & Plan Assessment/Plan (1) Pneumonia due to 2019 novel coronavirus: (2) Acute hypoxemic respiratory failure: PLAN: 1. Acute hypoxic respiratory failure secondary to acute COVID-19 pneumonia CTA of the chest shows multiple areas of consolidation with groundglass appear ance Patient is currently on 4 L of oxygen Continue on dexamethasone and Remdesivir Encourage use of IS Trial of Lasix 40mg IV x1 2. GERD on PPI 3. DVT PPx- Lovenox SC Charges/Coding Visit Charges Inpatient E&M: 42120 Subs Hosp L2
[2021-08-23] MEDS: Furosemide 40 MG/4 ML Vial IV (16:51)
[2021-08-24 02:16] VITALS: BP 106/67; PULSE 94; RESP 18; TEMP 37.2; O2SAT 90
[2021-08-24] MEDS: Acetaminophen 325 MG Tablet 650 MG PO ×3 (02:37→20:15)
[2021-08-24 03:16] VITALS: BP 110/65; PULSE 90; RESP 18; TEMP 37.1; O2SAT 94
[2021-08-24 08:00] VITALS: O2SAT 90
[2021-08-24] MEDS: Enoxaparin 30 MG/0.3 ML Syringe SC ×2 (08:37→20:15)
[2021-08-24] MEDS: Pantoprazole Sodium 40 MG Tablet PO (08:37)
[2021-08-24] MEDS: dexAMETHasone 4 MG Tablet 6 MG PO (08:37)
[2021-08-24 08:41] VITALS: BP 112/75; PULSE 80; RESP 18; TEMP 37.1; O2SAT 94
--- NOTE | 2021-08-24 08:43 | NURSING ---
pt attempted to wean to 8l but sats dropped to 86% on 8l. pt taking long while to come up from weaning.
[2021-08-24 13:02] VITALS: BP 119/83; PULSE 85; RESP 18; TEMP 36.7; O2SAT 94
[2021-08-24 13:20] LABS: Pathologist Review Reviewed
[2021-08-24] MEDS: 0.9% Saline Lock 10 ML Syringe IV ×2 (15:17→20:15)
[2021-08-24] MEDS: Furosemide 40 MG/4 ML Vial IV (15:17)
--- NOTE | 2021-08-24 16:40 | PCM.PN.HOSP ---
Subjective Subjective Follow-up on acute hypoxic respiratory failure/acute COVID-19 pneumonia: Patient was seen and examined. He complains of not feeling well. His oxygen requirements have worsened to 11 L. He denied any chest pain or dizziness. Denied any diarrhea Objective Data Objective Data Vital Signs: Vital Signs Temp Pulse Resp BP Pulse Ox 98.1 F 85 18 119/83 H 94 08/24/21 13:02 08/24/21 13:02 08/24/21 13:02 08/24/21 13:02 08/24/21 13:02 Oxygen Flow Rate (L/min) 11 Oxygen Delivery Method High Flow Weight: 106.1 kg Body Mass Index (BMI) 31.7 Intake & Output: Intake and Output for Last 24 Hours 08/22/21 08/23/21 08/24/21 23:59 23:59 23:59 Intake Total 1500 / 1500 Balance 1500 / 1500 Lab / Micro Data Result Diagrams: 08/23/21 07:00 08/23/21 07:00 Labs: Laboratory Results - last 24 hr 08/23/21 07:00: Diff Path Review Reviewed Physical Exam Narrative Physical exam: General: Alert, Oriented x3, Cooperative, No apparent distress, Well developed HEENT: Atraumatic Oral: Moist Mucosa Neck: Supple Lungs: Diminished to auscultation Cardiovascular: HS I+II, regular, no murmurs Abdomen: Bowel Sounds Present, Soft, Non Tender Extremities: No edema Assessment & Plan Assessment/Plan (1) Pneumonia due to 2019 novel coronavirus: (2) Acute hypoxemic respiratory failure: PLAN: 1. Acute hypoxic respiratory failure secondary to acute COVID-19 pneumonia, worsening Patient currently is on 11 L from 4 L yesterday Admitting CTA of the chest shows multiple areas of consolidation with groundglass appearance Will continue on dexamethasone( day 2/) and Remdesivir (/) Encourage use of IS Trial of Lasix 40mg IV x1 2. GERD on PPI 3. DVT PPx- Lovenox SC Charges/Coding Visit Charges Inpatient E&M: 01877 Subs Hosp L2
[2021-08-24 18:45] LABS: ALB/GLOB Ratio 0.7 RATIO (0.9-2.4); AST(SGOT) 118 U/L (15-37); Alanine Aminotransfer ALT/SGPT 125 U/L (16-61); Albumin, Serum 2.9 g/dL (3.2-5.0); Alkaline Phosphatase 87 U/L (45-117); Anion Gap 8 (5-15); BUN 34 mg/dL (7-18); BUN/Creat Ratio 28.8 RATIO (10-20); Calcium,Total 8.9 mg/dL (8.5-10.1); Chloride 102 mmol/L (98-107); Creatinine, Serum 1.18 mg/dL (0.70-1.30); EST Glomerular Filtration Rate 71 mL/min (>60); Est Glom Filt Rate - Afr Amer 85 mL/min (>60); Estimated Creatinine Clearance 85.86 ml/min; Globulin 4.4 g/dL (2.2-4.2); Glucose 150 mg/dL (74-106); Potassium 3.8 mmol/L (3.5-5.1); Protein, Total 7.3 g/dL (6.4-8.2); Sodium Level 139 mmol/L (136-145)
[2021-08-24 20:12] VITALS: BP 104/66; PULSE 90; RESP 18; TEMP 37.1; O2SAT 94
[2021-08-24] MEDS: Benzonatate 100 MG Capsule PO (20:15)
[2021-08-24] MEDS: MELATONIN 3 MG TABLET PO (20:15)
[2021-08-25 02:32] VITALS: BP 102/67; PULSE 71; RESP 20; TEMP 36.4; O2SAT 95
[2021-08-25] MEDS: Acetaminophen 325 MG Tablet 650 MG PO ×3 (02:38→21:00)
[2021-08-25 06:56] LABS: Absolute Lymphocyte Count 0.54 X10^3/uL (0.83-4.51); Absolute Neutrophil Count 8.6 X10^3/uL (2.0-7.7); Basophil# 0.02 X10^3/uL; Basophil% 0.2 % (0-1); Hematocrit 42.3 % (40-54); Hemoglobin 14.1 g/dL (13.0-16.5); Lymphocyte # 0.54 X10^3/ul (0.83-4.51); Lymphocyte % 5.5 % (19-41); Mean Corp Hgb Conc 33.3 g/dL (32-36); Mean Corpuscular Hgb 28.1 pg (27.0-32.0); Mean Corpuscular Volume 84.3 fL (80-94); Mean Platelet Vol. 10.8 fl (6.2-12.0); Monocyte# 0.67 X10^3/uL; Monocyte% 6.8 % (0-10); NRBC Flagged by Analyzer 0 % (0-5); Neutrophil # 8.55 X10^3/uL (2.7-7.7); Neutrophil % 86.5 % (47-70); POSITIVE DIFFERENTIAL YES; Platelet Count 219 K/mm3 (150-450); RBC Distribution Width CV 12.3 % (11.6-14.6); RBC Distribution Width SD 37.3 fl (35.1-43.9); Red Blood Count 5.02 M/mm3 (4.6-6.2); White Blood Count 9.9 K/mm3 (4.4-11.0)
[2021-08-25 07:07] LABS: Differential Indicated SCAN CRITERIA MET
[2021-08-25 07:22] LABS: ALB/GLOB Ratio 0.6 RATIO (0.9-2.4); AST(SGOT) 78 U/L (15-37); Alanine Aminotransfer ALT/SGPT 136 U/L (16-61); Albumin, Serum 2.5 g/dL (3.2-5.0); Alkaline Phosphatase 76 U/L (45-117); Anion Gap 7 (5-15); BUN 39 mg/dL (7-18); BUN/Creat Ratio 36.4 RATIO (10-20); Calcium,Total 8.6 mg/dL (8.5-10.1); Chloride 104 mmol/L (98-107); Creatinine, Serum 1.07 mg/dL (0.70-1.30); EST Glomerular Filtration Rate 79 mL/min (>60); Est Glom Filt Rate - Afr Amer 96 mL/min (>60); Estimated Creatinine Clearance 94.68 ml/min; Glucose 117 mg/dL (74-106); Potassium 3.9 mmol/L (3.5-5.1); Protein, Total 6.5 g/dL (6.4-8.2); Sodium Level 140 mmol/L (136-145)
[2021-08-25 07:59] VITALS: BP 104/74; PULSE 74; RESP 20; TEMP 36.6; O2SAT 94
[2021-08-25 08:30] LABS: Differential Comment SCANNED
[2021-08-25] MEDS: Pantoprazole Sodium 40 MG Tablet PO (10:29)
[2021-08-25] MEDS: dexAMETHasone 4 MG Tablet 6 MG PO (10:29)
[2021-08-25] MEDS: Enoxaparin 30 MG/0.3 ML Syringe SC ×2 (10:29→21:00)
[2021-08-25 14:10] VITALS: BP 144/74; PULSE 83; RESP 18; TEMP 37.1; O2SAT 93
[2021-08-25] MEDS: 0.9% Saline Lock 10 ML Syringe IV ×2 (14:22→21:00)
[2021-08-25] MEDS: Furosemide 40 MG/4 ML Vial IV (14:22)
[2021-08-25 14:26] VITALS: O2SAT 96
[2021-08-25 14:27] VITALS: O2SAT 96
--- NOTE | 2021-08-25 17:16 | NURSING ---
pharmacy [facility] called about missing sudafed.
--- NOTE | 2021-08-25 18:13 | PCM.PN.HOSP ---
Subjective Subjective Follow-up on acute hypoxic respiratory failure/acute COVID-19 pneumonia: Patient was seen and examined. He is currently on 8 L of oxygen. He complains of fatigue. Denies fever or chills. Objective Data Objective Data Vital Signs: Vital Signs Temp Pulse Resp BP Pulse Ox 98.7 F 83 18 144/74 H 96 08/25/21 14:10 08/25/21 14:10 08/25/21 14:10 08/25/21 14:10 08/25/21 14:27 Oxygen Flow Rate (L/min) 8 Oxygen Delivery Method High Flow Weight: 106.1 kg Body Mass Index (BMI) 31.7 Intake & Output: Intake and Output for Last 24 Hours 08/23/21 08/24/21 08/25/21 23:59 23:59 23:59 Intake Total 1500 / 1500 490 / 490 750 / 750 Output Total 300 / 300 Balance 1500 / 1500 490 / 490 450 / 450 Lab / Micro Data Result Diagrams: 08/25/21 06:15 08/25/21 06:15 Labs: Laboratory Results - last 24 hr 08/24/21 17:20: Sodium 139, Potassium 3.8, Chloride 102, Carbon Dioxide 29.0, Anion Gap 8, BUN 34 H, Creatinine 1.18, Estim Creat Clear Calc 85.86, Est GFR (MDRD) Af Amer 85, Est GFR (MDRD) Non-Af 71, BUN/Creatinine Ratio 28.8 H, Glucose 150 H, Calcium 8.9, Total Bilirubin 0.40, AST 118 H, ALT 125 H, Alkaline Phosphatase 87, Total Protein 7.3, Albumin 2.9 L, Globulin 4.4 H, Albumin/Globulin Ratio 0.7 L 08/25/21 06:15: WBC 9.9, RBC 5.02, Hgb 14.1, Hct 42.3, MCV 84.3, MCH 28.1, MCHC 33.3, RDW Std Deviation 37.3, RDW Coeff of Viri 12.3, Plt Count 219, MPV 10.8, Immature Gran % (Auto) 1.000 H, Neut % (Auto) 86.5 H, Lymph % (Auto) 5.5 L, [place] % (Auto) 6.8, Eos % (Auto) 0.0, Baso % (Auto) 0.2, Absolute Neuts (auto) 8.6 H, Absolute Lymphs (auto) 0.54 L, Nucleated RBC % 0, Differential Comment SCANNED 08/25/21 06:15: Sodium 140, Potassium 3.9, Chloride 104, Carbon Dioxide 29.0, Anion Gap 7, BUN 39 H, Creatinine 1.07, Estim Creat Clear Calc 94.68, Est GFR (MDRD) Af Amer 96, Est GFR (MDRD) Non-Af 79, BUN/Creatinine Ratio 36.4 H, Glucose 117 H, Calcium 8.6, Total Bilirubin 0.40, AST 78 H, ALT 136 H, Alkaline Phosphatase 76, Total Protein 6.5, Albumin 2.5 L, Globulin 4.0, Albumin/Globulin Ratio 0.6 L Physical Exam Narrative Physical exam: General: Alert, Oriented x3, Cooperative, No apparent distress, Well developed HEENT: Atraumatic Oral: Moist Mucosa Neck: Supple Lungs: Diminished to auscultation Cardiovascular: HS I+II, regular, no murmurs Abdomen: Bowel Sounds Present, Soft, Non Tender Extremities: No edema Assessment & Plan Assessment/Plan (1) Pneumonia due to 2019 novel coronavirus: (2) Acute hypoxemic respiratory failure: PLAN: 1. Acute hypoxic respiratory failure secondary to acute COVID-19 pneumonia, waxing and wanes Currently on 8L of oxygen Admitting CTA of the chest shows multiple areas of consolidation with groundglass appearance Will continue on dexamethasone( day 3/10) and Remdesivir (/) Encourage use of IS Trial of Lasix 40mg IV x1 2. GERD on PPI 3. DVT PPx- Lovenox SC Charges/Coding Visit Charges Inpatient E&M: 94518 Subs Hosp L2
[2021-08-25 20:57] VITALS: BP 115/70; PULSE 81; RESP 18; TEMP 36.7; O2SAT 94
[2021-08-26] VITALS (7 sets, daily range): BP systolic 112–118; BP diastolic 69–74; PULSE 76–91; RESP 18–20; TEMP 33.3–37.1; O2SAT 84–96
--- NOTE | 2021-08-26 04:26 | NURSING ---
oxygen level 84% on 7L hif[place]. encouraged pt to use incentive spirometer and deep breath. encouraged proning. pt would not do any of these suggestions. did lay on his side with much encouragement and after oxygen increased to 13L. Currently laying on side with 02 sats 90%. cont to monitor.
[2021-08-26 07:03] LABS: Absolute Lymphocyte Count 0.72 X10^3/uL (0.83-4.51); Absolute Neutrophil Count 12.6 X10^3/uL (2.0-7.7); Basophil# 0.02 X10^3/uL; Basophil% 0.1 % (0-1); Hematocrit 44.9 % (40-54); Hemoglobin 15.2 g/dL (13.0-16.5); Lymphocyte # 0.72 X10^3/ul (0.83-4.51); Mean Corp Hgb Conc 33.9 g/dL (32-36); Mean Corpuscular Hgb 28.5 pg (27.0-32.0); Mean Corpuscular Volume 84.1 fL (80-94); Mean Platelet Vol. 10.9 fl (6.2-12.0); Monocyte# 0.86 X10^3/uL; NRBC Flagged by Analyzer 0 % (0-5); Neutrophil # 12.64 X10^3/uL (2.7-7.7); Platelet Count 275 K/mm3 (150-450); RBC Distribution Width CV 12.2 % (11.6-14.6); Red Blood Count 5.34 M/mm3 (4.6-6.2); White Blood Count 14.4 K/mm3 (4.4-11.0)
[2021-08-26 07:44] LABS: ALB/GLOB Ratio 0.6 RATIO (0.9-2.4); AST(SGOT) 64 U/L (15-37); Alanine Aminotransfer ALT/SGPT 166 U/L (16-61); Albumin, Serum 2.6 g/dL (3.2-5.0); Alkaline Phosphatase 83 U/L (45-117); Anion Gap 6 (5-15); BUN 26 mg/dL (7-18); BUN/Creat Ratio 29.6 RATIO (10-20); Calcium,Total 8.7 mg/dL (8.5-10.1); Chloride 102 mmol/L (98-107); Creatinine, Serum 0.88 mg/dL (0.70-1.30); EST Glomerular Filtration Rate 99 mL/min (>60); Est Glom Filt Rate - Afr Amer 120 mL/min (>60); Estimated Creatinine Clearance 115.13 ml/min; Globulin 4.4 g/dL (2.2-4.2); Glucose 103 mg/dL (74-106); Potassium 3.9 mmol/L (3.5-5.1); Sodium Level 139 mmol/L (136-145)
[2021-08-26] MEDS: Enoxaparin 30 MG/0.3 ML Syringe SC ×2 (10:01→20:32)
[2021-08-26] MEDS: dexAMETHasone 4 MG Tablet 6 MG PO (10:01)
[2021-08-26] MEDS: Pantoprazole Sodium 40 MG Tablet PO (10:01)
[2021-08-26] MEDS: Acetaminophen 325 MG Tablet 650 MG PO ×2 (10:04→20:32)
--- NOTE | 2021-08-26 11:53 | PN.HOSP_ITS ---
Subjective Subjective Follow-up on acute hypoxic respiratory failure/acute COVID-19 pneumonia: Patient was seen and examined. He is currently on 13 L of oxygen. He complains of fatigue. Denies fever or chills. Objective Data Objective Data Vital Signs: Vital Signs Temp Pulse Resp BP Pulse Ox 92 F L 91 20 H 118/69 90 08/26/21 08:16 08/26/21 08:16 08/26/21 08:16 08/26/21 08:16 08/26/21 09:26 Oxygen Flow Rate (L/min) 13 Oxygen Delivery Method High Flow Weight: 106.1 kg Body Mass Index (BMI) 31.7 Intake & Output: Intake and Output for Last 24 Hours 08/24/21 08/25/21 08/26/21 23:59 23:59 23:59 Intake Total 490 / 490 1000 / 1000 Output Total 300 / 575 275 / 275 Balance 490 / 490 700 / 425 -275 / -275 Lab / Micro Data Result Diagrams: 08/26/21 06:30 08/26/21 06:30 Labs: Laboratory Results - last 24 hr 08/26/21 06:30: WBC 14.4 H, RBC 5.34, Hgb 15.2, Hct 44.9, MCV 84.1, MCH 28.5, M CHC 33.9, RDW Std Deviation 37.0, RDW Coeff of Viri 12.2, Plt Count 275, MPV 10.9, Immature Gran % (Auto) 0.900, Neut % (Auto) 88.0 H, Lymph % (Auto) 5.0 L, [place] % (Auto) 6.0, Eos % (Auto) 0.0, Baso % (Auto) 0.1, Absolute Neuts (auto) 12.6 H, Absolute Lymphs (auto) 0.72 L, Nucleated RBC % 0 08/26/21 06:30: Sodium 139, Potassium 3.9, Chloride 102, Carbon Dioxide 31.0, Anion Gap 6, BUN 26 H, Creatinine 0.88, Estim Creat Clear Calc 115.13, Est GFR (MDRD) Af Amer 120, Est GFR (MDRD) Non-Af 99, BUN/Creatinine Ratio 29.6 H, Glucose 103, Calcium 8.7, Total Bilirubin 0.70, AST 64 H, ALT 166 H, Alkaline Phosphatase 83, Total Protein 7.0, Albumin 2.6 L, Globulin 4.4 H, Albumin/Globulin Ratio 0.6 L Physical Exam Narrative Physical exam: General: Alert, Oriented x3, Cooperative, No apparent distress, Well developed HEENT: Atraumatic Oral: Moist Mucosa Neck: Supple Lungs: Diminished to auscultation Cardiovascular: HS I+II, regular, no murmurs Abdomen: Bowel Sounds Present, Soft, Non Tender Extremities: No edema Assessment & Plan Assessment/Plan (1) Pneumonia due to 2019 novel coronavirus: (2) Acute hypoxemic respiratory failure: PLAN: 1. Acute hypoxic respiratory failure secondary to acute COVID-19 pneumonia, waxing and wanes Currently on 13 L of oxygen Admitting CTA of the chest shows multiple areas of consolidation with groundglass appearance Will continue on dexamethasone( day 11/27) and Remdesivir (11/22) Encourage use of IS 2. GERD on PPI 3. DVT PPx- Lovenox SC Charges/Coding Visit Charges Inpatient E&M: 85799 Subs Hosp L2
--- NOTE | 2021-08-26 12:06 | CASEMGMT ---
Addendum entered by Krista Reese 08/26/21 15:29: TC back to pt . She states that she is still waiting on the insurance company. She is aware that should pt need to go home on O2 over the weekend without insurance verification, it would be self pay. She states this is fine, they will pay for it and the insurance will reimburse them. She states she filed an appeal with [employer] and won and is just waiting for the information. Original Note: TC to Registration to see if pt insurance has been verified yet. Carmen ran insurance and states pt is ineligible. TC to pt . She states she spoke with insurance yesterday and had this all straightened out . She states the card presented to the hospital is correct. She will call insurance and call this RN CM back. Made her aware this RN CM is trying to get this info in case pt dc's this weekend on O2.
[2021-08-26] MEDS: Zolpidem Tartrate 5 MG Tablet PO (23:09)
[2021-08-27] VITALS (8 sets, daily range): BP systolic 100–123; BP diastolic 52–76; PULSE 76–92; RESP 18–20; TEMP 36.5–37.6; O2SAT 90–97
[2021-08-27 08:36] LABS: Absolute Neutrophil Count 10.3 X10^3/uL (2.0-7.7); Basophil# 0.01 X10^3/uL; Basophil% 0.1 % (0-1); Eosinophil# 0.02 X10^3/uL; Eosinophils% 0.2 % (0-5); Hematocrit 41.8 % (40-54); Hemoglobin 13.8 g/dL (13.0-16.5); Lymphocyte % 5.8 % (19-41); Mean Corpuscular Hgb 28.4 pg (27.0-32.0); Mean Platelet Vol. 10.6 fl (6.2-12.0); Monocyte# 0.94 X10^3/uL; Monocyte% 7.8 % (0-10); NRBC Flagged by Analyzer 0 % (0-5); Neutrophil # 10.28 X10^3/uL (2.7-7.7); Neutrophil % 84.7 % (47-70); Platelet Count 210 K/mm3 (150-450); RBC Distribution Width CV 12.2 % (11.6-14.6); RBC Distribution Width SD 38.6 fl (35.1-43.9); Red Blood Count 4.86 M/mm3 (4.6-6.2); White Blood Count 12.1 K/mm3 (4.4-11.0)
[2021-08-27 09:02] LABS: ALB/GLOB Ratio 0.6 RATIO (0.9-2.4); AST(SGOT) 33 U/L (15-37); Alanine Aminotransfer ALT/SGPT 115 U/L (16-61); Albumin, Serum 2.2 g/dL (3.2-5.0); Alkaline Phosphatase 71 U/L (45-117); Anion Gap 3 (5-15); BUN 23 mg/dL (7-18); BUN/Creat Ratio 26.7 RATIO (10-20); Calcium,Total 8.6 mg/dL (8.5-10.1); Chloride 103 mmol/L (98-107); Creatinine, Serum 0.86 mg/dL (0.70-1.30); EST Glomerular Filtration Rate 101 mL/min (>60); Est Glom Filt Rate - Afr Amer 123 mL/min (>60); Globulin 3.9 g/dL (2.2-4.2); Glucose 93 mg/dL (74-106); Potassium 4.2 mmol/L (3.5-5.1); Protein, Total 6.1 g/dL (6.4-8.2); Sodium Level 138 mmol/L (136-145)
[2021-08-27] MEDS: Enoxaparin 30 MG/0.3 ML Syringe SC ×2 (11:02→20:50)
[2021-08-27] MEDS: dexAMETHasone 4 MG Tablet 6 MG PO (11:03)
[2021-08-27] MEDS: Pantoprazole Sodium 40 MG Tablet PO (11:03)
--- NOTE | 2021-08-27 13:59 | CASEMGMT ---
Received vm from pt questioning if she should be setting up the pt O2. TC back to her to make aware that the RN CM called her yesterday to try to get the insurance information straightened out in case pt was to be dc'd over the weekend. Let her know the usual liter flow of O2 that pt are dc'd home on and that the RN CM or hospital will set this up for pt prior to leaving. Also discussed the need to call the O2 company once pt is home to have concentrator delivered. She verbalizes understanding and denies further questions.
[2021-08-27] MEDS: Acetaminophen 325 MG Tablet 650 MG PO ×2 (14:52→20:52)
--- NOTE | 2021-08-27 16:46 | PN.HOSP_ITS ---
Subjective Subjective Follow-up on acute hypoxic respiratory failure/acute COVID-19 pneumonia: Patient was seen and examined. On 11 L of oxygen. He complains of fatigue. Denies fever or chills. He has not been using his incentive spirometer. Objective Data Objective Data Vital Signs: Vital Signs Temp Pulse Resp BP Pulse Ox 99.6 F H 88 20 H 100/52 L 96 08/27/21 14:30 08/27/21 14:30 08/27/21 14:30 08/27/21 14:30 08/27/21 15:50 Oxygen Flow Rate (L/min) 11 Oxygen Delivery Method High Flow Weight: 106.1 kg Body Mass Index (BMI) 31.7 Intake & Output: Intake and Output for Last 24 Hours 08/25/21 08/26/21 08/27/21 23:59 23:59 23:59 Intake Total 1000 / 1000 890 / 890 1240 / 1240 Output Total 300 / 575 275 / 275 500 / 500 Balance 700 / 425 615 / 615 740 / 740 Lab / Micro Data Result Diagrams: 08/27/21 08:00 08/27/21 08:00 Labs: Laboratory Results - last 24 hr 08/27/21 08:00: WBC 12.1 H, RBC 4.86, Hgb 13.8, Hct 41.8, MCV 86.0, MCH 28.4, MCHC 33.0, RDW Std Deviation 38.6, RDW Coeff of Viri 12.2, Plt Count 210, MPV 10.6, Immature Gran % (Auto) 1.400 H, Neut % (Auto) 84.7 H, Lymph % (Auto) 5.8 L , [place] % (Auto) 7.8, Eos % (Auto) 0.2, Baso % (Auto) 0.1, Absolute Neuts (auto) 10.3 H, Absolute Lymphs (auto) 0.70 L, Nucleated RBC % 0 08/27/21 08:00: Sodium 138, Potassium 4.2, Chloride 103, Carbon Dioxide 32.0, Anion Gap 3 L, BUN 23 H, Creatinine 0.86, Estim Creat Clear Calc 117.80, Est GFR (MDRD) Af Amer 123, Est GFR (MDRD) Non-Af 101, BUN/Creatinine Ratio 26.7 H, Glucose 93, Calcium 8.6, Total Bilirubin 0.50, AST 33, ALT 115 H, Alkaline Phosphatase 71, Total Protein 6.1 L, Albumin 2.2 L, Globulin 3.9, Albumin/Globulin Ratio 0.6 L Physical Exam Narrative Physical exam: General: Alert, Oriented x3, Cooperative, No apparent distress HEENT: Atraumatic Oral: Moist Mucosa Neck: Supple Lungs: Diminished to auscultation Cardiovascular: HS I+II, regular, no murmurs Abdomen: Bowel Sounds Present, Soft, Non Tender Extremities: No edema Assessment & Plan Assessment/Plan (1) Pneumonia due to 2019 novel coronavirus: (2) Acute hypoxemic respiratory failure: PLAN: 1. Acute hypoxic respiratory failure secondary to acute COVID-19 pneumonia, waxing and wanes Currently on 11 L of oxygen Admitting CTA of the chest shows multiple areas of consolidation with groundglass appearance Will continue on dexamethasone( day 510) and Remdesivir (12/22) Encourage use of IS 2. GERD on PPI 3. DVT PPx- Lovenox SC Charges/Coding Visit Charges Inpatient E&M: 78630 Subs Hosp L2
[2021-08-27] MEDS: Zolpidem Tartrate 5 MG Tablet PO (20:50)
[2021-08-27] MEDS: 0.9% Saline Lock 10 ML Syringe IV (21:10)
[2021-08-28] VITALS (12 sets, daily range): BP systolic 104–127; BP diastolic 67–82; PULSE 70–101; RESP 18; TEMP 36.6–36.9; O2SAT 92–99
[2021-08-28] MEDS: Enoxaparin 30 MG/0.3 ML Syringe SC ×2 (09:13→20:20)
[2021-08-28] MEDS: dexAMETHasone 4 MG Tablet 6 MG PO (09:14)
[2021-08-28] MEDS: Pantoprazole Sodium 40 MG Tablet PO (09:14)
--- NOTE | 2021-08-28 13:50 | PCM.PN.HOSP ---
Subjective Subjective Follow-up on acute hypoxic respiratory failure/acute COVID-19 pneumonia: Patient was seen and examined. Patient is currently on 7 L of oxygen. He denied any new complaints. Denied any fever or chills. He now is using his incentive spirometer. Objective Data Objective Data Vital Signs: Vital Signs Temp Pulse Resp BP Pulse Ox 97.8 F 101 H 18 117/82 H 93 08/28/21 09:05 08/28/21 09:05 08/28/21 09:05 08/28/21 09:05 08/28/21 12:48 Oxygen Flow Rate (L/min) 8 Oxygen Delivery Method High Flow Weight: 106.1 kg Body Mass Index (BMI) 31.7 Intake & Output: Intake and Output for Last 24 Hours 08/26/21 08/27/21 08/28/21 23:59 23:59 23:59 Intake Total 890 / 890 1600 / 1600 400 / 400 Output Total 275 / 275 500 / 500 Balance 615 / 615 1100 / 1100 400 / 400 Lab / Micro Data Result Diagrams: 08/27/21 08:00 08/27/21 08:00 Physical Exam Narrative Physical exam: General: Alert, Oriented x3, Cooperative, No apparent distress HEENT: Atraumatic Oral: Moist Mucosa Neck: Supple Lungs: Diminished to auscultation Cardiovascular: HS I+II, regular, no murmurs Abdomen: Bowel Sounds Present, Soft, Non Tender Extremities: No edema Assessment & Plan Assessment/Plan (1) Pneumonia due to 2019 novel coronavirus: (2) Acute hypoxemic respiratory failure: PLAN: 1. Acute hypoxic respiratory failure secondary to acute COVID-19 pneumonia, appears to be improving now Patient is unvaccinated; tested positive for Covid on 08/15/21; symptoms apparently started on 08/11/21 Currently on 7 L of oxygen Admitting CTA of the chest shows multiple areas of consolidation with groundglass appearance Completed remdesivir Cntinue on dexamethasone( day 01/27 Encourage use of IS 2. GERD on PPI 3. DVT PPx- Lovenox SC Charges/Coding Visit Charges Inpatient E&M: 41349 Subs Hosp L2
[2021-08-29 01:36] VITALS: O2SAT 94
[2021-08-29 01:56] VITALS: BP 110/64; PULSE 80; RESP 18; TEMP 36.7; O2SAT 95
[2021-08-29 07:54] VITALS: O2SAT 95
[2021-08-29 09:53] VITALS: BP 125/76; PULSE 99; RESP 18; TEMP 36.6; O2SAT 94
[2021-08-29 09:58] VITALS: RESP 18
[2021-08-29 10:06] VITALS: O2SAT 86; O2SAT 87; O2SAT 90; O2SAT 91
[2021-08-29] MEDS: Enoxaparin 30 MG/0.3 ML Syringe SC (10:15)
[2021-08-29] MEDS: Pantoprazole Sodium 40 MG Tablet PO (10:15)
[2021-08-29] MEDS: dexAMETHasone 4 MG Tablet 6 MG PO (10:16)
--- NOTE | 2021-08-29 10:26 | DS.PCM_ITS ---
Providers Date of Admission: 08/22/21 Primary Care Physician: No Primary Care Phys Reason For Visit: COVID-19 PNEUMONIA Diagnosis Discharge Diagnosis (1) Pneumonia due to 2019 novel coronavirus: Status: Inactive Code(s): U07.1 - COVID-19; J12.82 - Pneumonia due to coronavirus disease 2019 (2) Acute hypoxemic respiratory failure: Status: Acute Code(s): J96.01 - Acute respiratory failure with hypoxia Medications at Discharge Home Medications Omeprazole [Prilosec] 40 mg PO DAILY 05/09/17 cefdinir 300 mg PO BID #10 cap 08/29/21 dexamethasone 6 mg PO DAILY #3 tab 08/29/21 rivaroxaban [Xarelto] 10 mg PO DAILY #30 tab 08/29/21 Hospital Course Summary of Care Provided Minutes Spent on Discharge: 35 Hospital Course: Patient is a 46-year-old gentleman unvaccinated against COVID- 19 presenting with progressive shortness of breath 1. Acute hypoxic respiratory failure Secondary to COVID-19 pneumonia admitted to regular nursing floor management remdesivir as well as Decadron in addition to supplemental oxygen. Patient condition is stabilized after 7 days of hospitalization. He did not require oxygen on discharge. 2. GERD -on PPI 3. DVT prophylaxis Lovenox ? Prescription written for Lovenox on discharge 4. Class I obesity with BMI of 31.7 ? Weight loss advised Physical Exam Narrative GENERAL: cooperative HEENT: Atraumatic; EYES; Anicteric, Normal Conjunctiva NECK; supple, normal thyroid, RESPIRATORY: Diminished to auscultation CARDIOVASCULAR: Regular S1 S2, GI: soft, normoactive bowel sounds, : No Renal angle tenderness; EXTREMITIES: No edema, no clubbing, MUSCULOSKELETAL: no muscle waisting NEURO: Awake; no lateralizing signs. SKIN: No Rash PSYCH; Flat affect Weight / BMI Weight Weight: 106.1 kg Body Mass Index (BMI) 31.7 ABG / Lab / Microbiology Data Result Diagrams: 08/27/21 08:00 08/27/21 08:00 D/C Instructions Discharge Diet: No restrictions Discharge Activity: Return to Normal Activity Call your doctor if you observe: Fever of 101 or Higher, Shortness of breath, Fainting spells and Chest pain Meaningful Use Info Meaningful Use Diagnoses (Choose all that apply): None applicable Discharge Plan Admission Admit Date/Time: 08/22/21 22:05 Attending Provider: Tevin Choi Primary Care Provider: Care Physician,No Primary Discharge Orders/Prescriptions Prescriptions: New dexamethasone 4 mg Tablet 6 mg PO DAILY Qty: 3 RF: 0 Xarelto 10 mg tablet 10 mg PO DAILY Qty: 30 RF: 0 cefdinir 300 mg capsule 300 mg PO BID Qty: 10 RF: 0 Continued Omeprazole [Prilosec] 40 MG capsule 40 mg PO DAILY RF: 0 Referrals / Follow Up: Care Physician,No Primary [Primary Care Provider] - Disposition Disposition (needs filled in before D/C Order can be placed): Home, Self Care Charges/Coding Visit Charges Inpatient E&M: 41287 Disch Hosp
--- NOTE | 2021-08-29 11:37 | CM.UR ---
Addendum entered by Krista Reese 08/29/21 16:32: TC to pt to make aware that xarelto rx to be changed to eliquis with savings card. She states she just picked up the medication. JACQUI STEELE called pharmacy to cancel filling of the eliquis. Hospitalist notified. Addendum entered by Krista Reese 08/29/21 15:07: TC to [facility] pharmacy, the cost of xarelto is $423.80 and the card does not cover the 10mg. Notified hospitalist to see of another option. Original Note: Pt to dc today, pt qualifies for home O2. Pt to be dc'd on eliquis. Provided Reggie nurse eliquis card to give to pt. TC to pt , she has not heard from her insurance company. She is fine with paying out of pocket for O2 and aware this JACQUI STEELE is going to fax the referral. She is aware to call [facility] when pt gets home for concentrator set up. She denies further questions. Faxed referral to [facility]. Portable tank taken from [employer]. Emailed [place] regarding referal.
== END 2021-08-29 14:17 | disposition home or self-care (01) | DRG 177 ==
LOC: ED 21:42 → MS3 22:46
PROVIDERS: Internal Medicine; Admitting Provider Hospitalist; Emergency Provider Emergency Medicine; Visit Provider Internal Medicine
DX: U07.1 COVID-19 (principal); J12.82 Pneumonia due to coronavirus disease 2019; J96.01 Acute respiratory failure with hypoxia; K21.9 Gastro-esophageal reflux disease without esophagitis; Z79.899 Other long term (current) drug therapy; E66.9 Obesity, unspecified; Z68.31 Body mass index [BMI] 31.0-31.9, adult
CPT/HCPCS: 36415; 71275; 80048; 80053; 80076; 83880; 84484; 85025; 93005; 94760; 94762; 97802; 99284; J7050; Q9967; 90686; A4216; J0248; J1940

== ENCOUNTER 2021-10-03 13:04 | Outpatient (CLI) | payer BC, SELFPAY ==
[2021-10-03 15:32] LABS: Vitamin D,25 Hydroxy 23.4 ng/mL
[2021-10-03 15:48] LABS: Hemoglobin A1c 5.4 % (3.8-5.6)
[2021-10-03 15:58] LABS: Cholesterol 232 mg/dL (200); High Density Lipoprotein 36 mg/dL; PSA,Total - Annual Screen 6.68 ng/mL (0.00-4.00); Thyroid Stim Hormone (TSH) 0.78 uIU/mL (0.358-3.74); Triglycerides 97 mg/dL; Very Low Density Lipoprotein 19 mg/dL (5-40)
== END 2021-10-03 23:59 | disposition home or self-care (01) ==
LOC: BIMLAB 13:05
PROVIDERS: PCP Internal Medicine; Referring Provider Internal Medicine; Visit Provider Internal Medicine
DX: U07.1 COVID-19 (principal); J96.01 Acute respiratory failure with hypoxia; R79.89 Other specified abnormal findings of blood chemistry; E55.9 Vitamin D deficiency, unspecified; Z13.220 Encounter for screening for lipoid disorders; Z12.5 Encounter for screening for malignant neoplasm of prostate
CPT/HCPCS: 36415; 80061; 82306; 83036; 84153; 84443; G0103

== ENCOUNTER → 2023-03-14 | Outpatient (CLI) | payer BC, SELFPAY ==
[2023-03-14 11:23] LABS: Absolute Lymphocyte Count 1.03 X10^3/uL (0.83-4.51); Absolute Neutrophil Count 9.5 X10^3/uL (2.0-7.7); Basophil# 0.07 X10^3/uL; Basophil% 0.6 % (0-1); Eosinophil# 0.17 X10^3/uL; Eosinophils% 1.5 % (0-5); Hemoglobin 14.6 g/dL (13.0-16.5); Lymphocyte # 1.03 X10^3/ul (0.83-4.51); Lymphocyte % 8.9 % (19-41); Mean Corp Hgb Conc 32.4 g/dL (32-36); Mean Corpuscular Hgb 28.5 pg (27.0-32.0); Mean Corpuscular Volume 87.9 fL (80-94); Mean Platelet Vol. 11.1 fl (6.2-12.0); Monocyte# 0.71 X10^3/uL; Monocyte% 6.2 % (0-10); NRBC Flagged by Analyzer 0 % (0-5); Neutrophil # 9.49 X10^3/uL (2.7-7.7); Neutrophil % 82.3 % (47-70); Platelet Count 207 K/mm3 (150-450); RBC Distribution Width CV 12.8 % (11.6-14.6); RBC Distribution Width SD 41.5 fl (35.1-43.9); Red Blood Count 5.12 M/mm3 (4.6-6.2); White Blood Count 11.5 K/mm3 (4.4-11.0)
[2023-03-14 12:11] LABS: BNP,B-Type NATRIURETIC PEPTIDE 7.9 pg/mL (0-100)
[2023-03-14 12:14] LABS: Insulin 19.4 mU/L (2.6-37.6); Vitamin D,25 Hydroxy 30.7 ng/mL
[2023-03-14 12:32] LABS: ALB/GLOB Ratio 1.1 RATIO (0.9-2.4); AST(SGOT) 28 U/L (15-37); Alanine Aminotransfer ALT/SGPT 56 U/L (16-61); Albumin, Serum 3.7 g/dL (3.2-5.0); Alkaline Phosphatase 86 U/L (45-117); Anion Gap 4 (5-15); BUN 19 mg/dL (7-18); BUN/Creat Ratio 21.1 RATIO (10-20); Chloride 112 mmol/L (98-107); Cholesterol 178 mg/dL (200); EST Glomerular Filtration Rate 96 mL/min (>60); Est Glom Filt Rate - Afr Amer 116 mL/min (>60); Free T3 2.8 pg/mL (2.18-3.98); Globulin 3.3 g/dL (2.2-4.2); Glucose 86 mg/dL (74-106); High Density Lipoprotein 36 mg/dL; Magnesium 2.2 mg/dL (1.6-2.6); PSA,Total- Diagnostic 6.49 ng/mL (0.0-4.0); Sodium Level 141 mmol/L (136-145); T4 Free Direct 0.88 ng/dL (0.76-1.46); Thyroid Stim Hormone (TSH) 1.32 uIU/mL (0.358-3.74); Triglycerides 72 mg/dL; Very Low Density Lipoprotein 14 mg/dL (5-40)
[2023-03-14 15:50] LABS: Hemoglobin A1c 5.2 % (3.8-5.6)
== END | disposition home or self-care (01) ==
LOC: LAB 09:12
PROVIDERS: PCP Internal Medicine; Referring Provider Internal Medicine; Visit Provider Internal Medicine
DX: R97.20 Elevated prostate specific antigen [PSA] (principal); R06.09 Other forms of dyspnea; Z13.220 Encounter for screening for lipoid disorders; E88.81 Metabolic syndrome and other insulin resistance; E66.9 Obesity, unspecified; R73.9 Hyperglycemia, unspecified; N40.0 Benign prostatic hyperplasia without lower urinary tract symptoms; E55.9 Vitamin D deficiency, unspecified
CPT/HCPCS: 36415; 80053; 80061; 82306; 83036; 83525; 83735; 83880; 84153; 84439; 84443; 84481; 85025

== ENCOUNTER → 2023-06-14 | Outpatient (CLI) | payer BC, SELFPAY ==
[2023-06-14 15:02] LABS: CREATININE FINGERSTICK 1.1 mg/dL (0.70-1.30); EGFR FINGERSTICK > 60.0000 mL/min (>60)
--- NOTE | 2023-06-14 15:15 | MRI_ITS ---
STUDY: MR PELVIS WITH AND WITHOUT CONTRAST (PROSTATE) REASON FOR EXAM: Male, 48 years old. Elevated PSA TECHNIQUE: Standardized multiparametric prostate MRI with T1, T2, DWI/ADC sequences were obtained in 3 orthogonal planes, and dynamic contrast enhancement sequences. Clariscan contrast material was administered intravenously for the contrast portion of the examination. COMPARISON: None. FINDINGS: The prostate volume measures 79.8 mm3. The contours of the prostate gland are slightly lobular. There is mass effect on the bladder base. The transition zone is heterogenous. PI-RADS DWI score 2 - Hypointense within a BPH nodule on ADC. PI-RADS T2W score 2 - A mostly encapsulated nodule(s) OR a homogeneous circumscribed nodule without encapsulation (atypical nodule) or a homogeneous mildly hypointense area between nodules.. Contrast enhancement no early or contemporaneous enhancement; or diffuse multifocal enhancement NOT corresponding to a focal finding on T2W and/or DWI or focal ehancement responding to a lesion demonstrating features of BPH onT2WI (including features of extruded BPH in the PZ). The peripheral zone is homogenous. PI-RADS DWI score 1 - No abnormality (normal) on ADC or high b-value DWI. PI-RADS T2W score 1 - Uniformaly hyperintense (normal). Contrast enhancement no early or contemporaneous enhancement; or diffuse multifocal enhancement NOT corresponding to a focal finding on T2W and/or DWI or focal enhancement responding to a lesion demonstrating features of BPH onT2WI (including features of extruded BPH in the PZ). The seminal vesicles demonstrate normal margins and T2 signal pattern. No mass lesion or invasion depicted. The rectoprostatic angles are normal. Urinary bladder is normal without wall thickening. The vascular structures of the are normal. The visualized hollow viscus structures are normal. No bone marrow edema or mass lesion depicted. MRI/Pelvis W/WO Contrast IMPRESSION: 1. PIRADS v2.1 2019 -- 2 - Low (clinically significant cancer is unlikely). 2. Prostatomegaly with BPH nodules. Electronically Signed: Zak Gunderson MD ([place]) at 8:08 EDT ,
== END | disposition home or self-care (01) ==
PROVIDERS: PCP Internal Medicine; Referring Provider Urology; Visit Provider Urology
DX: R97.20 Elevated prostate specific antigen [PSA] (principal)
CPT/HCPCS: 72197; A9575

== ENCOUNTER → 2023-12-18 | Outpatient (CLI) | payer BC, SELFPAY ==
[2023-12-20 12:09] LABS: PSA, Free 1.01 ng/mL; PSA, Free % 13.5 % (.)
== END | disposition home or self-care (01) ==
LOC: LAB 16:02
PROVIDERS: PCP Internal Medicine; Referring Provider Urology; Visit Provider Urology
DX: R97.20 Elevated prostate specific antigen [PSA] (principal)
CPT/HCPCS: 36415; 84153; 84154

== ENCOUNTER 2025-08-12 19:52 | Emergency (ER) | payer OTHER, SELFPAY ==
[2025-08-12 19:54] VITALS: BP 141/93; PULSE 90; RESP 14; TEMP 36.4; O2SAT 98; BMI 32.5
--- NOTE | 2025-08-12 20:21 | CT_ITS ---
PROCEDURE: CT ABDOMEN/PELVIS WITHOUT CONTRAST 08/12/2025 REASON FOR EXAM: URINARY RETENTION TECHNIQUE: Procedure Code: CTABDPEL Modality: CT Procedure: ABDOMEN/PELVIS WITHOUT CONT Noncontrast technique limits evaluation of the abdominal and pelvic viscera. Coronal and Sagittal reconstruction series were provided. One or more dose reduction techniques were used (e.g., Automated exposure control, adjustment of the mA and/or kV according to patient size, use of iterative reconstruction technique). RADIATION DOSE SUMMARY: CTDlvol: 18.31 mGy DLP: 1061.63 mGycm COMPARISON: Pelvis MRI 06/14/2023. FINDINGS: Lung bases: Clear. Liver: Unremarkable. Gallbladder: Unremarkable. Spleen: Unremarkable. Pancreas: Unremarkable. Adrenals: Unremarkable. Kidneys: Small subcentimeter nonobstructive stone in the lower pole of the left kidney. No ureteral calculi or hydroureteronephrosis on either side. No perinephric edema. Bladder: Smoothly distended. No pericystic inflammation. Reproductive Organs: Enlarged prostate. Bowel: No evidence of obstruction or active inflammatory process. The appendix is not identified with certainty but there are no pericecal inflammatory changes. Moderate colonic stool burden. Lymph nodes: No enlarged abdominopelvic lymph nodes. Vasculature: Normal in course and caliber. Peritoneum / Retroperitoneum: No ascites or free air. Bones: Minimal degenerative changes of the spine. Small fat containing umbilical hernia. CT/Abdomen/Pelvis without Cont IMPRESSION: Enlarged prostate. Smoothly distended urinary bladder, which may reflect urina ry retention from bladder outlet obstruction. No wall thickening or active inflammatory changes. Small subcentimeter nonobstructive left renal stone. No hydronephrosis. Reading Location: [id number]
--- OUTSIDE RECORDS SUMMARY | 2025-08-12 20:26 | XMS RPT_ITS | CCD ---
Author Organization [facility] Care Team Providers Care Transferrer Name Role Phone GARRETT HOOD (IRVING) Unavailable Unavailable AMENA, JOSE T Unavailable Unavailable AMENA, JOSE T Unavailable Unavailable AMENA, JOSE T Unavailable Unavailable AMENA, JOSE T Unavailable Unavailable AMENA, JOSE T Unavailable Unavailable Dr. Deann Braun Primary Care Provider Dr. Deann Braun Attending Provider Deann Braun Primary Care Unavailable Marlon Hoover Referring Unavailable Marlon Hoover Attending Unavailable Deann Braun Primary Care Unavailable Marlon Hoover Referring Unavailable Marlon Hoover Attending Unavailable Deann Braun Referring Unavailable Deann Braun Attending Unavailable Deann Braun Primary Care Unavailable Deann Braun Attending Unavailable Deann Braun Primary Care Unavailable Medications Current Medications Medication Drug Class(es) Dates Sig (Normalized) Sig (Original) aspirin 81 mg delayed release oral tablet (2 sources) Platelet Aggregation Inhibitor, Nonsteroidal Anti-inflammatory Drug Start: 03-14-2023 take 81 mg by mouth once daily Aspirin Active 81 MG PO DAILY March 14, 2023 12:00am azithromycin 250 mg oral tablet (2 sources) Macrolide Antimicrobial Start: 03-14-2023 Azithromycin (Zithromax) 250 mg tablet Active 0 PO .COMPLEX March 14, 2023 12:00am For 250 mg dose pack: take 500 mg today (day 1), then 250 mg for 4 days (days 2-5) PO guaiFENesin 600 mg oral tablet (2 sources) Start: 03-14-2023 take 600 mg by mouth twice daily Guaifenesin Active 600 MG PO TWICE A DAY March 14, 2023 12:00am hydroCHLOROthiazide 12.5 mg / lisinopril 10 mg oral tablet (3 sources) Thiazide Diuretic, Angiotensin Converting Enzyme Inhibitor Start: 03-15-2023 End: 09-06-2023 take 1 tablet by mouth once daily Lisinopril-Gate chlorothiazide Active 1 TABLET PO DAILY September 06, 2023 10:23am omeprazole 40 mg delayed release oral capsule (2 sources) Proton Pump Inhibitor Start: 05-09-2017 take 1 capsule by mouth once daily Omeprazole (Prilosec) 40 MG capsule Active 40 MG PO DAILY May 09, 2017 12:00am Completed/Discontinued Medications Medication Drug Class(es) Dates Sig (Normalized) Sig (Original) acetaminophen 325 mg / HYDROcodone bitartrate 5 mg oral tablet (2 sources) Opioid Agonist Start: 06-15-2013 End: 08-30-2013 take 1 tablet by mouth every four hours as needed Hydrocodone-Acetam inophen Discontinued 1 - 2 TABLET PO EVERY 4 HOURS NEEDED June 15, 2013 12:00am August 30, 2013 9:03pm cefdinir 300 mg oral capsule (2 sources) Cephalosporin Antibacterial Start: 08-29-2021 End: 09-26-2021 take 300 mg by mouth twice daily Cefdinir Discontinued 300 MG PO TWICE A DAY August 29, 2021 1:00am September 26, 2021 2:14pm dexamethasone 4 mg oral tablet (2 sources) Corticosteroid Start: 08-29-2021 End: 09-26-2021 take 6 mg by mouth once daily Dexamethasone Discontinued 6 MG PO DAILY August 29, 2021 1:00am September 26, 2021 2:14pm rivaroxaban 10 mg oral tablet (2 sources) Factor Xa Inhibitor Start: 08-29-2021 End: 09-26-2021 take 1 tablet by mouth once daily Rivaroxaban (Xarelto) 10 mg tablet Discontinued 10 MG PO DAILY August 29, 2021 1:00am September 26, 2021 2:14pm Problems Active Problems Problem Classification Problem Date Documented Da te Episodic/Chronic Open wounds of extremities (2 sources) Puncture wound of index finger of left hand; Translations: [Puncture wound without foreign body of left index finger without damage to nail, initial encounter] 05-10-2021 Episodic Other connective tissue disease (2 sources) Muscle pain; Translations: [Myalgia, unspecified site] 08-28-2021 Episodic Other injuries and conditions due to external causes (2 sources) Foreign body in esophagus; Translations: [Unspecified foreign body in esophagus causing other injury, initial encounter] 03-31-2017 Episodic Other lower respiratory disease (2 sources) Dyspnea on exertion; Translations: [Other forms of dyspnea] 03-14-2023 Episodic Other nutritional; endocrine; and metabolic disorders (2 sources) Insulin resistance; Translations: [Metabolic syndrome] 03-14-2023 Chronic Other nutritional; endocrine; and metabolic disorders (2 sources) Obese class I; Translations: [Obesity, unspecified] 03-14-2023 Chronic Other nutritional; endocrine; and metabolic disorders (2 sources) Metabolic syndrome; Translations: [Dysmetabolic syndrome X] Onset: 03-14-2023 03-14-2023 Chronic Other nutritional; endocrine; and metabolic disorders (2 sources) Obesity, unspecified; Translations: [Obesity, unspecified] Onset: 03-14-2023 03-14-2023 Chronic Other nutritional; endocrine; and metabolic disorders (2 sources) Weight gain; Translations: [Abnormal weight gain] 03-14-2023 Episodic Other nutritional; endocrine; and metabolic disorders (1 source) Abnormal weight gain; Translations: [Abnormal weight gain] 03-14-2023 Episodic Other upper respiratory infections (3 sources) Upper respiratory infection; Translations: [Acute upper respiratory infection, unspecified] 03-14-2023 Episodic Residual codes; unclassified (2 sources) Sleep apnea; Translations: [Sleep apnea, unspecified] 03-14-2023 Chronic Residual codes; unclassified (2 sources) Sleep apnea, unspecified; Translations: [Unspecified sleep apnea] Onset: 03-14-2023 03-14-2023 Chronic Respiratory failure; insufficiency; arrest (adult) (2 sources) Acute hypoxemic respiratory failure; Translations: [Acute respiratory failure with hypoxia] 08-22-2021 Episodic Unclassified (9 sources) Encounter for screening for malignant neoplasm of colon; Translations: [Raised prostate specific antigen] Onset: 05-01-2017 10-03-2021 Episodic Unclassified (1 source) Unknown / UNK(Unknown) Onset: 04-12-2017 Viral infection (4 sources) COVID-19; Translations: [Pneumonia due to COVID-19 virus] 08-28-2021 Episodic Past or Other Problems Problem Classification Problem Date Documented Da te Episodic/Chronic Other lower respiratory disease (2 sources) Other forms of dyspnea; Translations: [Other respiratory abnormalities] Onset: 03-14-2023 03-14-2023 Episodic Results Test Name Value Interpretation Reference Range Facility PSA Total+%Freeon 12-20-2023 PSA, FREE 1.01 ng/mL Normal N/A [facility] Comment on above: Result Comment: Reymundo BARTON methodology. Performed By: #### L 501.9940, L501.76852, L501.9520, L506.0400, L501.5200, L501.9985, L100.0100, [id number], L506.1000, L503.6620, L500.4050, L500.4100 #### [facility] [address] [place], [address] PSA, FREE % 13.5 Normal . [facility] Comment on above: Result Comment: The table below lists the probability of prostate cancer for men with non-suspicious IRENE results and total PSA between 4 and 10 ng/mL, by patient age (Hugo et al, ELI 1998, 279:1542). % Free PSA 50-64 yr 65-75 yr 0.00-10.00% 56% 55% 10.01-15.00% 24% 35% 15.01-20.00% 17% 23% 20.01-25.00% 10% 20% >25.00% 5% 9% Please note: Hugo et al did not make specific recommendations regarding the use of percent free PSA for any other population of men. Performed at: - [address] [id number] Roller Man: Hermes Moran PhD, Phone: [phone] Performed By: #### L 501.9940, L501.27946, L501.9520, L506.0400, L501.5200, L501.9985, L100.0100, [id number], L506.1000, L503.6620, L500.4050, L500.4100 #### [facility] [address] [place], [place], [address] PSA, TOTAL ULTR 7.460 ng/mL Abnormal 0.000-4.000 [facility] Comment on above: Result Comment: Roch christa ECLIA methodology. According to the [place] [employer], Serum PSA should decrease and remain at undetectable levels after radical prostatectomy. The AUA defines biochemical recurrence as an initial PSA value 0.200 ng/mL or greater followed by a subsequent confirmatory PSA value 0.200 ng/mL or greater. Values obtained with different assay methods or kits cannot be used interchangeably. Results cannot be interpreted as absolute evidence of the presence or absence of malignant disease. Performed By: #### L 501.9940, L501.42007, L501.9520, L506.0400, L501.5200, L501.9985, L100.0100, [id number], L506.1000, L503.6620, L500.4050, L500.4100 #### [facility] [address] [place], [address] No Panel InformationOrdered By: Marlon Hoover on 12-18-2023 Percent Free Prostate Specific Ag 1.01 ng/mL N/A [facility] Comment on above: Alexis ECLIA methodol ogy. Prostate Specific Ag, Ultra-Sensitv 7.460 ng/mL 0.000-4.000 [facility] Comment on above: Alexis ECLIA methodol ogy.According to the [place] [employer], Serum PSAshould decrease and remain at undetectable levels afterradical prostatectomy. The AUA defines biochemicalrecurrence as an initial PSA value 0.200 ng/mL or greaterfollowed by a subsequent confirmatory PSA value 0.200 ng/mLor greater. Values obtained with different assay methods orkits cannot be used interchangeably. Results cannot beinterpreted as absolute evidence of the presence or absenceof malignant disease. Serum or plasma free prostat e specific antigen/total prostate specific antigen ratioOrdered By: Marlon Hoover on 12-18-2023 Free PSA/Total PSA [Mass fraction] 13.5 % . [facility] Comment on above: The table below list s the probability of prostate cancer formen with non-suspicious IRENE results and total PSA between4 and 10 ng/mL, by patient age (Hugo et al, ELI 1998,279:1542). % Free PSA 50-64 yr 65-75 yr 0.00-10.00% 56% 55% 10.01-15.00% 24% 35% 15.01-20.00% 17% 23% 20.01-25.00% 10% 20% >25.00% 5% 9%Please note: Hugo et al did not make specific recommendations regarding the use of percent free PSA for any other population of men.Performed at: - [facility] [id number] Director: Hermes Moran PhD, Phone: [phone] CREATININE FINGERSTICKon Creatinine [Mass/Vol] 1.1 mg/dL Normal 0.70-1.30 [facility] Comment on above: Performed By: #### L 501.9940, L501.69311, L501.9520, L506.0400, L501.5200, L501.9985, L100.0100, [id number], L506.1000, L503.6620, L500.4050, L500.4100 #### [facility] [address] [place], [address] EGFR WB > 60.0000 Normal >60 [facility] Comment on above: Performed By: #### L 501.9940, L501.85322, L501.9520, L506.0400, L501.5200, L501.9985, L100.0100, [id number], L506.1000, L503.6620, L500.4050, L500.4100 #### [facility] [address] [place], [address] Pelvis W/WO Contraston 06-14 Pelvis W/WO Contrast [facility] [address] [place] [address] Pelvis W/WO Contrast MR#: [id number] Acct: [id number] Name: REGGIE REICH Rep #: [id number] : 1975 M 48 From: Zak Gunderson MD PCP: Dr. Deann Braun MD Status: REG CLI Study: Pelvis W/WO Contrast Date of Exam: 06/14/23 Exam# [id number] Ordering Dr: Marlon Hoover MD [id number] STUDY: MR PELVIS WITH AND WITHOUT CONTRAST (PROSTATE) REASON FOR EXAM: Male, 48 years old. Elevated PSA TECHNIQUE: Standardized multiparametric prostate MRI with T1, T2, DWI/ADC sequences were obtained in 3 orthogonal planes, and dynamic contrast enhancement sequences. Clariscan contrast material was administered intravenously for the contrast portion of the examination. COMPARISON: None. FINDINGS: The prostate volume measures 79.8 mm3. The contours of the prostate gland are slightly lobular. There is mass effect on the bladder base. The transition zone is heterogenous. PI-RADS DWI score 2 - Hypointense within a BPH nodule on ADC. PI-RADS T2W score 2 - A mostly encapsulated nodule(s) OR a homogeneous circumscribed nodule without encapsulation (atypical nodule) or a homogeneous mildly hypointense area between nodules.. Contrast enhancement no early or contemporaneous enhancement; or diffuse multifocal enhancement NOT corresponding to a focal finding on T2W and/or DWI or focal ehancement responding to a lesion demonstrating features of BPH onT2WI (including features of extruded BPH in the PZ). The peripheral zone is homogenous. PI-RADS DWI score 1 - No abnormality (normal) on ADC or high b-value DWI. PI-RADS T2W score 1 - Uniformaly hyperintense (normal). Contrast enhancement no early or contemporaneous enhancement; or diffuse multifocal enhancement NOT corresponding to a focal finding on T2W and/or DWI or focal enhancement responding to a lesion demonstrating features of BPH onT2WI (including features of extruded BPH in the PZ). The seminal vesicles demonstrate normal margins and T2 signal pattern. No mass lesion or invasion depicted. The rectoprostatic angles are normal. Urinary bladder is normal without wall thickening. The vascular structures of the are normal. The visualized hollow viscus structures are normal. No bone marrow edema or mass lesion depicted. MRI/Pelvis W/WO Contrast IMPRESSION: 1. PIRADS v2.1 2019 -- 2 - Low (clinically significant cancer is unlikely). 2. Prostatomegaly with BPH nodules. Electronically Signed: Zak Gunderson MD (Brooks) at 8:08 EDT Reading Location ID and State: [address] [place] [address] , Service support , CC: Dr. Marlon Hoover MD; Dr. Deann Braun MD Cashier: Signed Normal [facility] Absolute lymphocyte countOrd ered By: Deann Braun on 03-14-2023 Lymphocytes Auto (Unsp spec) [#/Vol] 1.03 10*3/uL 0.83-4.51 [facility] BNP,B-Type NATRIURETIC PEPTI Risa 03-14-2023 Natriuretic peptide B (Bld) [Mass/Vol] 7.9 pg/mL Normal 0-100 [facility] Comment on above: Performed By: #### L 501.9940, L501.09754, L501.9520, L506.0400, L501.5200, L501.9985, L100.0100, [id number], L506.1000, L503.6620, L500.4050, L500.4100 #### [facility] [address] [place], [address] Basophil percentageOrdered B y: Deann Braun on 03-14-2023 Basophils/100 WBC (Bld) 0.6 % 0-1 [facility] Bilirubin [Mass/Vol] 0.20 mg/dL 0.20-1.00 [facility] Comment on above: For patients on eltr ombopag therapy, use of Dimension [place] TBIL is not recommended. Chloride [Moles/Vol] 112 mmol/L 98-107 [facility] Cholesterol [Mass/Vol] 178 mg/dL <200 [facility] Comment on above: <200 mg/dL Desirable 200-240 mg/dL Borderline >240 mg/dL High Risk Eosinophils/100 WBC (Bld) 1.5 % 0-5 [facility] Glucose [Mass/Vol] 86 mg/dL 74-106 [facility] Neutrophils (Bld) [#/Vol] 9.5 10*3/uL 2.0-7.7 [facility] Neutrophils/100 WBC (Bld) 82.3 % 47-70 [facility] Potassium [Moles/Vol] 4.0 mmol/L 3.5-5.1 [facility] Protein [Mass/Vol] 7.0 g/dL 6.4-8.2 [facility] Sodium [Moles/Vol] 141 mmol/L 136-145 [facility] Triglyceride [Mass/Vol] 72 mg/dL <199 [facility] Comment on above: The drugs N-Acetylcy steine and Metamizole may falsely depress this assay.Serum Triglycerides Reference Interval Normal <150 mg/dL Borderline high 150 - 199 mg/dL High 200 - 499 mg/dL Very High > or = 500 mg/dL WBC (Bld) [#/Vol] 11.5 10*3/uL 4.4-11.0 [facility] Blood erythrocytes count (nu mber/volume)Ordered By: Deann Braun on 03-14-2023 RBC (Bld) [#/Vol] 5.12 10*6/uL 4.6-6.2 [facility] Blood hemoglobin measurement (mass/volume)Ordered By: Deann Braun on 03-14-2023 Hemoglobin (Bld) [Mass/Vol] 14.6 g/dL 13.0-16.5 [facility] Blood lymphocytes/100 leukoc ytesOrdered By: Deann Braun on 03-14-2023 Lymphocytes/100 WBC (Bld) 8.9 % 19-41 [facility] Blood monocytes/100 leukocyt esOrdered By: Deann Braun on 03-14-2023 Monocytes/100 WBC (Bld) 6.2 % 0-10 [facility] Blood platelet mean volumeOr dered By: Deann Braun on 03-14-2023 Platelet mean volume (Bld) [Entitic vol] 11.1 fL 6.2-12.0 [facility] CBC W/Diff, Automatedon 02-18 Absolute Lymph 1.03 X10 3/uL Normal 0.83-4.51 [facility] Comment on above: Performed By: #### L 501.9940, L501.01543, L501.9520, L506.0400, L501.5200, L501.9985, L100.0100, [id number], L506.1000, L503.6620, L500.4050, L500.4100 #### [facility] [address] [place], [address] Absolute Neut 9.5 X10 3/uL High 2.0-7.7 [facility] Comment on above: Performed By: #### L 501.9940, L501.97574, L501.9520, L506.0400, L501.5200, L501.9985, L100.0100, [id number], L506.1000, L503.6620, L500.4050, L500.4100 #### [facility] [address] [place], [address] Basophils/100 WBC (Bld) 0.6 % Normal 0-1 [facility] Comment on above: Performed By: #### L 501.9940, L501.84154, L501.9520, L506.0400, L501.5200, L501.9985, L100.0100, [id number], L506.1000, L503.6620, L500.4050, L500.4100 #### [facility] [address] [place], [address] Eosinophils/100 WBC (Bld) 1.5 % Normal 0-5 [facility] Comment on above: Performed By: #### L 501.9940, L501.61854, L501.9520, L506.0400, L501.5200, L501.9985, L100.0100, [id number], L506.1000, L503.6620, L500.4050, L500.4100 #### [facility] [address] [place], [place], [id number] (370) Erythrocyte distribution width (RBC) [Ratio] 12.8 % Normal 11.6-14.6 [facility] Comment on above: Performed By: #### L 501.9940, L501.33462, L501.9520, L506.0400, L501.5200, L501.9985, L100.0100, [id number], L506.1000, L503.6620, L500.4050, L500.4100 #### [facility] [place], [address] Hematocrit (Bld) [Volume fraction] 45.0 % Normal 40-54 [facility] Comment on above: Performed By: #### L 501.9940, L501.65496, L501.9520, L506.0400, L501.5200, L501.9985, L100.0100, [id number], L506.1000, L503.6620, L500.4050, L500.4100 #### [facility] [address] [place], [place], [id number] (448) Hemoglobin (Bld) [Mass/Vol] 14.6 g/dL Normal 13.0-16.5 [facility] Comment on above: Performed By: #### L 501.9940, L501.39106, L501.9520, L506.0400, L501.5200, L501.9985, L100.0100, [id number], L506.1000, L503.6620, L500.4050, L500.4100 #### [facility] [address] [place], [place], [phone] (957) IG% 0.500 Normal 0.0-0.9 [facility] Comment on above: Result Comment: IG% - Immature Granulocytes (promyelocytes, myelocytes and metamyelocytes) > 1% indicates that a LEFT SHIFT is Present. Performed By: #### L 501.9940, L501.54826, L501.9520, L506.0400, L501.5200, L501.9985, L100.0100, [id number], L506.1000, L503.6620, L500.4050, L500.4100 #### [facility] [address] [place], [address] (719) Lymphocytes/100 WBC (Bld) 8.9 % Low 19-41 [facility] Comment on above: Performed By: #### L 501.9940, L501.60193, L501.9520, L506.0400, L501.5200, L501.9985, L100.0100, [id number], L506.1000, L503.6620, L500.4050, L500.4100 #### [facility] [address] [place], [address] ( MCH (RBC) [Entitic mass] 28.5 pg Normal 27.0-32.0 [facility] Comment on above: Performed By: #### L 501.9940, L501.15561, L501.9520, L506.0400, L501.5200, L501.9985, L100.0100, [id number], L506.1000, L503.6620, L500.4050, L500.4100 #### [facility] [address] [place], [address] ( MCHC (RBC) [Mass/Vol] 32.4 g/dL Normal 32-36 [facility] Comment on above: Performed By: #### L 501.9940, L501.11206, L501.9520, L506.0400, L501.5200, L501.9985, L100.0100, [id number], L506.1000, L503.6620, L500.4050, L500.4100 #### [facility] [address] [place], [address] MCV (RBC) [Entitic vol] 87.9 fL Normal 80-94 [facility] Comment on above: Performed By: #### L 501.9940, L501.91268, L501.9520, L506.0400, L501.5200, L501.9985, L100.0100, [id number], L506.1000, L503.6620, L500.4050, L500.4100 #### [facility] [address] [facility] [place], [address] Monocytes/100 WBC (Bld) 6.2 % Normal 0-10 [facility] Comment on above: Performed By: #### L 501.9940, L501.82130, L501.9520, L506.0400, L501.5200, L501.9985, L100.0100, [id number], L506.1000, L503.6620, L500.4050, L500.4100 #### [facility] [address] [place], [address] Neutrophils/100 WBC (Bld) 82.3 % High 47-70 [facility] Comment on above: Performed By: #### L 501.9940, L501.92486, L501.9520, L506.0400, L501.5200, L501.9985, L100.0100, [id number], L506.1000, L503.6620, L500.4050, L500.4100 #### [facility] [address] [place], [address] Nucleated RBC (Bld) [#/Vol] 0 10*3/uL Normal 0-5 [facility] Comment on above: Performed By: #### L 501.9940, L501.43125, L501.9520, L506.0400, L501.5200, L501.9985, L100.0100, [id number], L506.1000, L503.6620, L500.4050, L500.4100 #### [facility] [address] [place], [address] (750) Platelet mean volume (Bld) [Entitic vol] 11.1 fL Normal 6.2-12.0 [facility] Comment on above: Performed By: #### L 501.9940, L501.65656, L501.9520, L506.0400, L501.5200, L501.9985, L100.0100, [id number], L506.1000, L503.6620, L500.4050, L500.4100 #### [facility] [address] [facility] [place], [place], [id number] (525) Platelets (Bld) [#/Vol] 207 10*3/uL Normal 150-450 [facility] Comment on above: Performed By: #### L 501.9940, L501.86272, L501.9520, L506.0400, L501.5200, L501.9985, L100.0100, [id number], L506.1000, L503.6620, L500.4050, L500.4100 #### [facility] [address] [facility] [place], [place], [phone] (176) RBC (Bld) [#/Vol] 5.12 10*6/uL Normal 4.6-6.2 [facility] Comment on above: Performed By: #### L 501.9940, L501.86834, L501.9520, L506.0400, L501.5200, L501.9985, L100.0100, [id number], L506.1000, L503.6620, L500.4050, L500.4100 #### [facility] [address] [place], [address] RDW SD 41.5 fl Normal 35.1-43.9 [facility] Comment on above: Performed By: #### L 501.9940, L501.43237, L501.9520, L506.0400, L501.5200, L501.9985, L100.0100, [id number], L506.1000, L503.6620, L500.4050, L500.4100 #### [facility] [address] [place], [place], [id number] WBC (Bld) [#/Vol] 11.5 10*3/uL High 4.4-11.0 [facility] Comment on above: Performed By: #### L 501.9940, L501.30622, L501.9520, L506.0400, L501.5200, L501.9985, L100.0100, [id number], L506.1000, L503.6620, L500.4050, L500.4100 #### [facility] [address] [place], [place], [id number] Comprehensive Metabolic Prof waon 03-14-2023 Albumin [Mass/Vol] 3.7 g/dL Normal 3.2-5.0 [facility] Comment on above: Performed By: #### L 501.9940, L501.19748, L501.9520, L506.0400, L501.5200, L501.9985, L100.0100, [id number], L506.1000, L503.6620, L500.4050, L500.4100 #### [facility] [address] [place], [place], [id number] Albumin/Globulin [Mass ratio] 1.1 {ratio} Normal 0.9-2.4 [facility] Comment on above: Performed By: #### L 501.9940, L501.71065, L501.9520, L506.0400, L501.5200, L501.9985, L100.0100, [id number], L506.1000, L503.6620, L500.4050, L500.4100 #### [facility] [address] [place], [address] ALK P 86 U/L Normal 45-117 [facility] Comment on above: Performed By: #### L 501.9940, L501.62879, L501.9520, L506.0400, L501.5200, L501.9985, L100.0100, [id number], L506.1000, L503.6620, L500.4050, L500.4100 #### [facility] [address] [place], [place], [id number] (205) ALT [Catalytic activity/Vol] 56 U/L Normal 16-61 [facility] Comment on above: Performed By: #### L 501.9940, L501.30354, L501.9520, L506.0400, L501.5200, L501.9985, L100.0100, [id number], L506.1000, L503.6620, L500.4050, L500.4100 #### [facility] [address] [place], [place], [id number] (861) AST [Catalytic activity/Vol] 28 U/L Normal 15-37 [facility] Comment on above: Performed By: #### L 501.9940, L501.12094, L501.9520, L506.0400, L501.5200, L501.9985, L100.0100, [id number], L506.1000, L503.6620, L500.4050, L500.4100 #### [facility] [address] [place], [place], [id number] (558) Bilirubin [Mass/Vol] 0.20 mg/dL Normal 0.20-1.00 [facility] Comment on above: Result Comment: For patients on eltrombopag therapy, use of Dimension [place] TBIL is not recommended. Performed By: #### L 501.9940, L501.67391, L501.9520, L506.0400, L501.5200, L501.9985, L100.0100, [id number], L506.1000, L503.6620, L500.4050, L500.4100 #### [facility] [address] [place], [address] BUN/CRE 21.1 RATIO High 10-20 [facility] Comment on above: Performed By: #### L 501.9940, L501.73890, L501.9520, L506.0400, L501.5200, L501.9985, L100.0100, [id number], L506.1000, L503.6620, L500.4050, L500.4100 #### [facility] [address] [place], [place], [id number] [place],Total 9.0 mg/dL Normal 8.5-10.1 [facility] Comment on above: Performed By: #### L 501.9940, L501.45045, L501.9520, L506.0400, L501.5200, L501.9985, L100.0100, [id number], L506.1000, L503.6620, L500.4050, L500.4100 #### [facility] [address] [place], [address] Chloride [Moles/Vol] 112 mmol/L High 98-107 [facility] Comment on above: Performed By: #### L 501.9940, L501.03201, L501.9520, L506.0400, L501.5200, L501.9985, L100.0100, [id number], L506.1000, L503.6620, L500.4050, L500.4100 #### [facility] [address] [place], [address] CO2 [Moles/Vol] 25.0 mmol/L Normal 21.0-32.0 [facility] Comment on above: Performed By: #### L 501.9940, L501.78318, L501.9520, L506.0400, L501.5200, L501.9985, L100.0100, [id number], L506.1000, L503.6620, L500.4050, L500.4100 #### [facility] [address] [place], [place], [id number] (913) Creatinine [Mass/Vol] 0.90 mg/dL Normal 0.70-1.30 [facility] Comment on above: Result Comment: The validity of the calculated GFR GFRAA in patients over 70 years has not been determined. Clinical correlation is essential. Performed By: #### L 501.9940, L501.19454, L501.9520, L506.0400, L501.5200, L501.9985, L100.0100, [id number], L506.1000, L503.6620, L500.4050, L500.4100 #### [facility] [address] [place], [address] EST GFR - AA 116 mL/min Normal >60 [facility] Comment on above: Result Comment: Afri can [place] GFR Calc Performed By: #### L 501.9940, L501.08819, L501.9520, L506.0400, L501.5200, L501.9985, L100.0100, [id number], L506.1000, L503.6620, L500.4050, L500.4100 #### [facility] [address] [place], [address] GAP 4 Low 5-15 [facility] Comment on above: Performed By: #### L 501.9940, L501.03804, L501.9520, L506.0400, L501.5200, L501.9985, L100.0100, [id number], L506.1000, L503.6620, L500.4050, L500.4100 #### [facility] [address] [facility] [place], [place], [id number] (679) GFR/1.73 sq M.predicted among non-blacks MDRD (S/P/Bld) [Vol rate/Area] 96 mL/min/{1.73_m2} Normal >60 [facility] Comment on above: Result Comment: Non- GFR Calc Performed By: #### L 501.9940, L501.88795, L501.9520, L506.0400, L501.5200, L501.9985, L100.0100, [id number], L506.1000, L503.6620, L500.4050, L500.4100 #### [facility] [address] [facility] [place], [place], [id number] (498) Globulin (S) [Mass/Vol] 3.3 g/dL Normal 2.2-4.2 [facility] Comment on above: Performed By: #### L 501.9940, L501.55033, L501.9520, L506.0400, L501.5200, L501.9985, L100.0100, [id number], L506.1000, L503.6620, L500.4050, L500.4100 #### [facility] [address] [place], [place], [id number] (827) Glucose [Mass/Vol] 86 mg/dL Normal 74-106 [facility] Comment on above: Performed By: #### L 501.9940, L501.19910, L501.9520, L506.0400, L501.5200, L501.9985, L100.0100, [id number], L506.1000, L503.6620, L500.4050, L500.4100 #### [facility] [address] [place], [address] Potassium [Moles/Vol] 4.0 mmol/L Normal 3.5-5.1 [facility] Comment on above: Performed By: #### L 501.9940, L501.59284, L501.9520, L506.0400, L501.5200, L501.9985, L100.0100, [id number], L506.1000, L503.6620, L500.4050, L500.4100 #### [facility] [address] [place], [address] Sodium [Moles/Vol] 141 mmol/L Normal 136-145 [facility] Comment on above: Performed By: #### L 501.9940, L501.92183, L501.9520, L506.0400, L501.5200, L501.9985, L100.0100, [id number], L506.1000, L503.6620, L500.4050, L500.4100 #### [facility] [address] [place], [place], [id number] (892) T PROT 7.0 g/dL Normal 6.4-8.2 [facility] Comment on above: Performed By: #### L 501.9940, L501.18165, L501.9520, L506.0400, L501.5200, L501.9985, L100.0100, [id number], L506.1000, L503.6620, L500.4050, L500.4100 #### [facility] [address] [place], [address] Urea nitrogen [Mass/Vol] 19 mg/dL High 7-18 [facility] Comment on above: Performed By: #### L 501.9940, L501.94104, L501.9520, L506.0400, L501.5200, L501.9985, L100.0100, [id number], L506.1000, L503.6620, L500.4050, L500.4100 #### [facility] [address] [place], [address] Determination of erythrocyte mean corpuscular volume (MCV)Ordered By: Deann Braun on 03-14-2023 MCV (RBC) [Entitic vol] 87.9 fL 80-94 [facility] Free T3on 03-14-2023 Free T3 [Mass/Vol] 2.8 pg/mL Normal 2.18-3.98 [facility] Comment on above: Performed By: #### L 501.9940, L501.17265, L501.9520, L506.0400, L501.5200, L501.9985, L100.0100, [id number], L506.1000, L503.6620, L500.4050, L500.4100 #### [facility] [address] [place], [address] Hematocrit Auto (Bld) [Volum e fraction]Ordered By: Deann Braun on 03-14-2023 Hematocrit (Bld) [Volume fraction] 45.0 % 40-54 [facility] Hemoglobin A1con 03-14-2023 HbA1c (Bld) [Mass fraction] 5.2 % Normal 3.8-5.6 [facility] Comment on above: Result Comment: Norm al < 5.7 % Prediabetic 5.7 - 6.4 % Diabetic >or= 6.5 % Please note range changes. Performed By: #### L 501.9940, L501.08805, L501.9520, L506.0400, L501.5200, L501.9985, L100.0100, [id number], L506.1000, L503.6620, L500.4050, L500.4100 #### [facility] [address] [place], [address] Insulinon 03-14-2023 Insulin 19.4 mU/L Normal 2.6-37.6 [facility] Comment on above: Performed By: #### L 501.9940, L501.57927, L501.9520, L506.0400, L501.5200, L501.9985, L100.0100, [id number], L506.1000, L503.6620, L500.4050, L500.4100 #### [facility] [address] [place], [address] Laboratory - Chemistry and C hemistry - challengeOrdered By: Deann Braun on 03-14-2023 ALP [Catalytic activity/Vol] 86 U/L 45-117 [facility] ALT [Catalytic activity/Vol] 56 U/L 16-61 [facility] CO2 [Moles/Vol] 25.0 mmol/L 21.0-32.0 [facility] Free T4 [Mass/Vol] 0.88 ng/dL 0.76-1.46 [facility] Globulin (S) [Mass/Vol] 3.3 g/dL 2.2-4.2 [facility] Magnesium [Mass/Vol] 2.2 mg/dL 1.6-2.6 [facility] Natriuretic peptide B (Bld) [Mass/Vol] 7.9 pg/mL 0-100 [facility] Urea nitrogen/Creatinine [Mass ratio] 21.1 mg/mg 10-20 [facility] - Hematology and Cell countsOrdered By: Deann Braun on 03-14-2023 Erythrocyte distribution width (RBC) [Entitic vol] 41.5 fL 35.1-43.9 [facility] Erythrocyte distribution width (RBC) [Ratio] 12.8 % 11.6-14.6 [facility] Immature granulocytes/100 WBC (Bld) 0.500 % 0.0-0.9 [facility] Comment on above: IG% - Immature Granu locytes (promyelocytes, myelocytes and metamyelocytes) > 1% indicates that a LEFT SHIFT is Present. MCH (RBC) [Entitic mass] 28.5 pg 27.0-32.0 [facility] Nucleated RBC/100 WBC (Bld) [Ratio] 0 % 0-5 [facility] Lipid Profileon 03-14-2023 Cholesterol [Mass/Vol] 178 mg/dL Normal 200 [facility] Comment on above: Result Comment: <200 mg/dL Desirable 200-240 mg/dL Borderline >240 mg/dL High Risk Performed By: #### L 501.9940, L501.01501, L501.9520, L506.0400, L501.5200, L501.9985, L100.0100, [id number], L506.1000, L503.6620, L500.4050, L500.4100 #### [facility] [address] [place], [address] Cholesterol in HDL [Mass/Vol] 36 mg/dL Low [facility] Comment on above: Result Comment: The drugs N-Acetylcysteine and Metamizole may falsely depress this assay. Reference Range HDL <40 mg/dL Low HDL Cholesterol HDL >or= 60 mg/dL High HDL Cholesterol Performed By: #### L 501.9940, L501.51661, L501.9520, L506.0400, L501.5200, L501.9985, L100.0100, [id number], L506.1000, L503.6620, L500.4050, L500.4100 #### [facility] [address] [place], [address] Cholesterol in LDL [Mass/Vol] 128 mg/dL Normal 0-130 [facility] Comment on above: Performed By: #### L 501.9940, L501.49121, L501.9520, L506.0400, L501.5200, L501.9985, L100.0100, [id number], L506.1000, L503.6620, L500.4050, L500.4100 #### [facility] [address] [place], [address] Cholesterol in VLDL [Mass/Vol] 14 mg/dL Normal 5-40 [facility] Comment on above: Performed By: #### L 501.9940, L501.47645, L501.9520, L506.0400, L501.5200, L501.9985, L100.0100, [id number], L506.1000, L503.6620, L500.4050, L500.4100 #### [facility] [address] [place], [address] Triglyceride [Mass/Vol] 72 mg/dL Normal [facility] Comment on above: Result Comment: The drugs N-Acetylcysteine and Metamizole may falsely depress this assay. Serum Triglycerides Reference Interval Normal <150 mg/dL Borderline high 150 - 199 mg/dL High 200 - 499 mg/dL Very High > or = 500 mg/dL Performed By: #### L 501.9940, L501.92570, L501.9520, L506.0400, L501.5200, L501.9985, L100.0100, [id number], L506.1000, L503.6620, L500.4050, L500.4100 #### [facility] [address] [place], [place], [address] MCHC Auto (RBC) [Mass/Vol]Or dered By: Deann Braun on 03-14-2023 MCHC (RBC) [Mass/Vol] 32.4 g/dL 32-36 [facility] MR/BMS.[facility] 03-14-2023 MR/BMS.[facility] [address] [place] [address] OFFICE VISIT Date of Service: 03/14/23 MR#: [id number] Acct: [id number] Name: REGGIE REICH Christa Rep #: [id number] : 1975 Provider: Dr. Deann maloney MD Age/Sex: 48/M Location: [facility] Status: Signed Intake Vital Signs 09/26/21 13:17 03/14/23 08:05 Height 6 ft 6 ft Weight: 256 lb 4 oz BMI 34.7 BP 147/92 H Blood Pressure Location Rt brachial Position Sitting Respiration 16 Pulse 86 Pulse Source Monitor Temp 98.3 F Temp Source Temporal Pulse Oximetry (%) 96 Oxygen Delivery Method room air Intake Visit Reasons: Swelling in Hands, Feet Chief Complaint: cough x 3 weeks, hands and feet swell x1 week Travel Med Surg Rn Required: No Is patient in pain?: No Allergies No Known Allergies Allergy (Verified 03/14/23 08:06) Medications Omeprazole [Prilosec] 40 mg PO DAILY 05/09/17 [History Confirmed 03/14/23] aspirin 81 mg tablet,delayed release 81 mg PO DAILY 03/14/23 [History Confirmed 03/14/23] azithromycin 250 mg tablet (Zithromax) See Rx Instructions PO .COMPLEX #6 tabs 03/14/23 [Rx Confirmed 03/14/23] guaifenesin 600 mg tablet, extended release 12 hr 600 mg PO BID PRN Cough #20 tabs 03/14/23 [Rx Confirmed 03/14/23] Nurse's Note: 6 COUNT INCLUDES THE [facility] Medical History GERD (gastroesophageal reflux disease) Surgical History History of appendectomy Family History Father Colon cancer Alcoholism Mother Depression Myocardial infarction Heart disease Hypertension Hyperlipemia Grandfather Myocardial infarction Other Cancer Social History Smoking Status: Never smoker alcohol intake: never substance use type: does not use what type of physical activity do you participate in: none HPI HPI Chief Complaint: cough x 3 weeks, hands and feet swell x1 week Details: REGGIE REICH, is a 48 M who presents to the office today for an acute care visit/follow-up. 48-year-old male who I saw last year in September for the first time and only time. He was to have followed up in 6 months. That did not happen. At that time, his PSA was noted to be elevated, and patient was notified. Follow-up order was placed for a diagnostic PSA. That was not done. He was hospitalized just prior to my initial visit with COVID-19 pneumonia. He had acute hypoxemic respiratory failure, COVID-19. He was noted to have elevated LFTs, borderline blood sugars. CT scanning of the chest that was done in relationship to the COVID-19 pneumonia did demonstrate fatty liver. Patient was made aware of all those things at that initial visit. He was drinking upwards of 8 cans a day of Pepsi, regular. I advised him strongly against that, particularly in light of his borderline elevated blood sugars, very likely underlying insulin resistance. We spent considerable time discussing dietary nutritional patterns in that context. After that he did cut back some on pop but now is back to his usual amounts. He eats fast food restaurants every day for lunch. Does not eat breakfast. He does eat supper but usually very late in, often high carbohydrate food right before bed. He is a loud snorer. His spouse is here today. Endorses witnessed apnea. He has been noted recently to have elevated blood pressures, and a sense of some swelling in the hands as it relates to the fact that he had some difficulties getting his ring on and off of his hand. He himself does not necessarily feel like there is a lot of edema but was concerned about the ring. He has been gaining weight. Has noticed a small umbilical hernia developing. His weight has consistently gone up over the years, as far back as this EMR goes. He has been coughing recently. Mostly towards nighttime when he lays down. Less so in the daytime. No significant sputum production, occasionally small amount. No high-grade fever or shaking c hills. Been worsening over the last several weeks. As stated above, patient spouse notes that patient sleeps through the night. She frequently has to wake him up from an apneic episode. He is a loud snorer. Tends to sleep in bed. Not sitting up. He can lay flat at this point. He feels like he sleeps through the night. Usually reasonably well rested. He has not been experiencing any episodes of chest pain or chest tightness but does get a little winded easier since he had COVID he states. There is strong family history of early CAD in his family. Brother at 61 from a heart attack. Father he believes lived to 62 but had heart disease. Review of systems per chart. Physical exam. Vital signs on chart. EOMI. PERRLA. Sclera are clear. TMs are unremarkable with normal ligh (more content not included)... Normal [facility] Magnesiumon 03-14-2023 Magnesium [Mass/Vol] 2.2 mg/dL Normal 1.6-2.6 [facility] Comment on above: Performed By: #### L 501.9940, L501.32690, L501.9520, L506.0400, L501.5200, L501.9985, L100.0100, [id number], L506.1000, L503.6620, L500.4050, L500.4100 #### [facility] [address] [place], [address] No Panel InformationOrdered By: Deann Braun on 03-14-2023 Estimated GFR (MDRD) Amer 116 mL/min >60 [facility] Comment on above: GFR Calc Estimated GFR (MDRD) Non-Af Amer 96 mL/min >60 [facility] Comment on above: Non- GFR Calc Free Triiodothyronine (T3) pg/dL 2.8 pg/mL 2.18-3.98 [facility] Insulin Level 19.4 mU/L 2.6-37.6 [facility] Prostate Specific Antigen Total 6.49 ng/mL 0.0-4.0 [facility] Comment on above: This test was perfor med using the TPSA assay method for [employer] system. Values obtained with differentassay methods cannot be used interchangably.When changing PSA assays in the course of monitoring apatient, additional sequential testing should be carriedout to confirm baseline values. Thyroid Stimulating Hormone (TSH) 1.32 uIU/mL 0.358-3.74 [facility] Vitamin D 25-Hydroxy 30.7 ng/mL [facility] Comment on above: Vitamin D 25(OH) Sta tus Range Deficiency <20 ng/mL (50nmol/L) Insufficiency 20 - 30 ng/mL (50 - 75 nmol/L) Sufficiency 30 - 100 ng/mL (75 - 250 nmol/L) Toxicity >100 ng/mL (>250 nmol/L) PSA,Total- Diagnosticon 02-18 PSA, DIAGNOSTIC 6.49 ng/mL High 0.0-4.0 [facility] Comment on above: Result Comment: This test was performed using the TPSA assay method for the [employer] chemistry system. Values obtained with different assay methods cannot be used interchangably. When changing PSA assays in the course of monitoring a patient, additional sequential testing should be carried out to confirm baseline values. Performed By: #### L 501.9940, L501.08045, L501.9520, L506.0400, L501.5200, L501.9985, L100.0100, [id number], L506.1000, L503.6620, L500.4050, L500.4100 #### [facility] [place], [address] Platelets bldOrdered By: Erin Braun on 03-14-2023 Platelets (Bld) [#/Vol] 207 10*3/uL 150-450 [facility] Serum or plasma albumin rhonda urement (mass/volume)Ordered By: Deann Braun on 03-14-2023 Albumin [Mass/Vol] 3.7 g/dL 3.2-5.0 [facility] Serum or plasma albumin/glob ulin mass ratioOrdered By: Deann Braun on 03-14-2023 Albumin/Globulin [Mass ratio] 1.1 {ratio} 0.9-2.4 [facility] Serum or plasma calcium rhonda urement (mass/volume)Ordered By: Deann Braun on 03-14-2023 Calcium [Mass/Vol] 9.0 mg/dL 8.5-10.1 [facility] Serum or plasma cholesterol in HDL measurement (mass/volume)Ordered By: Deann Braun on 03-14-2023 Cholesterol in HDL [Mass/Vol] 36 mg/dL >40 [facility] Comment on above: The drugs N-Acetylcy steine and Metamizole may falsely depress this assay. Reference Range HDL <40 mg/dL Low HDL Cholesterol HDL >or= 60 mg/dL High HDL Cholesterol Serum or plasma cholesterol in VLDL measurement (mass/volume)Ordered By: Deann Braun on 03-14-2023 Cholesterol in VLDL [Mass/Vol] 14 mg/dL 5-40 [facility] Serum or plasma creatinine m easurement (mass/volume)Ordered By: Deann Braun on 03-14-2023 Creatinine [Mass/Vol] 0.90 mg/dL 0.70-1.30 [facility] Comment on above: The validity of the calculated GFR & GFRAA in patients over 70 years has not been determined. Clinical correlation is essential. Serum or plasma low density lipoprotein (LDL) cholesterol measurement (mass/volume)Ordered By: Deann Braun on 03-14-2023 Cholesterol in LDL [Mass/Vol] 128 mg/dL 0-130 [facility] Serum or plasma urea nitroge n measurement (mass/volume)Ordered By: Deann Braun on 03-14-2023 Urea nitrogen [Mass/Vol] 19 mg/dL 7-18 [facility] T4 Free Directon 03-14-2023 T4 FREE DIRECT 0.88 ng/dL Normal 0.76-1.46 [facility] Comment on above: Performed By: #### L 501.9940, L501.14009, L501.9520, L506.0400, L501.5200, L501.9985, L100.0100, [id number], L506.1000, L503.6620, L500.4050, L500.4100 #### [facility] [address] [place], [place], [id number] Thin prep Papanicolaou smear with manual screeningOrdered By: Deann Braun on 03-14-2023 Thin prep Papanicolaou smear with manual screening 28 U/L 15-37 [facility] Thin prep Papanicolaou smear with manual screening 4 5-15 [facility] Thyroid Stim Hormone (TSH)on 03-14-2023 TSH 1.32 uIU/mL Normal 0.358-3.74 [facility] Comment on above: Performed By: #### L 501.9940, L501.84873, L501.9520, L506.0400, L501.5200, L501.9985, L100.0100, [id number], L506.1000, L503.6620, L500.4050, L500.4100 #### [facility] [address] [place], [place], [address] Vitamin D,25 Hydroxyon 03-14 Vitamin D 25-OH 30.7 ng/mL Normal [facility] Comment on above: Result Comment: Meli min D 25(OH) Status Range Deficiency <20 ng/mL (50nmol/L) Insufficiency 20 - 30 ng/mL (50 - 75 nmol/L) Sufficiency 30 - 100 ng/mL (75 - 250 nmol/L) Toxicity >100 ng/mL (>250 nmol/L) Performed By: #### L 501.9940, L501.00212, L501.9520, L506.0400, L501.5200, L501.9985, L100.0100, [id number], L506.1000, L503.6620, L500.4050, L500.4100 #### [facility] [address] [place], [place], [address] Whole blood hemoglobin A1c/t otal hemoglobin ratio (mass fraction)Ordered By: Deann Braun on 03-14-2023 HbA1c (Bld) [Mass fraction] 5.2 % 3.8-5.6 [facility] Comment on above: Normal < 5.7 % Predi abetic 5.7 - 6.4 % Diabetic >or= 6.5 % Please note range changes. CNOVon 05-10-2017 CNOV Office Visit (GENSWS) -------REGGIE REICH ([id number]) 1975 MDate Time Provider Department05/10/17 8:00 AM GARRETT HOOD) ERIC During your visit today, we recorded the following information about you:Garrett Hood PA-C 05/10/2017 8:26 AM Signed-Prevpac for 2 weeks-Once finished with Prevpac, resume omeprazole-Follow up in 3 months for recheck and to schedule follow-up EGDThe following instructions are important for you related to your office visitt[facility] with [facility].INSTRUCTIONS FOLLOWING A NORMAL COLONOSCOPY W/ FAMILY HX COLON CANCER 5YRI discussed with you the findings of your colonoscopy. Since there were noworrisome abnormalities, I recommend you undergo repeat endoscopic screeningevery 5 years due to your family history of colon cancer. This is the currentrecommendation for colon cancer screening. If you note bleeding, change inbowel habits, or other suspicious colon related symptoms before that time,those symptoms should be evaluated as necessary. andINSTRUCTIONS FOR PEPTIC ULCER DISEASE/GASTRITIS - H PYLORI POSITIVEI discussed with you the findings of your upper endoscopy. Your upperendoscopy demonstrated signs of peptic ulcer disease or irritation. This canbe seen as a range of issues from actual ulcers in the stomach or duodenum(first part of the small bowel) or irritation ranging from redness to moresignificant irritation with erosions of the stomach or duodenum.Your gastric biopsy demonstrated that your stomach has the H. Pylori bacteria.H. Pylori bacteria have been show to cause ulcers and gastritis. You will begiven medications to eradicate that bacteria.The most common prescription is called the Prevpac. Prevpac (lansoprazole,clarithromyci n, and amoxicillin) is used to treat Helicobacter pyloriinfections associated with ulcers. Each daily administration pack contains asingle day's dose of lansoprazole, clarithromycin, and amoxicillin. Prevpaccomes as an individual card containing a single day's dose of medications inblister pack form. There are morning and evening doses.If you are allergic to any of the medications, different combinations can beprescribed.These medications are usually given for 10-14 days.After that time, the antibiotics are stopped, but the proton pump inhibitor(PPI)... Prevacid, prilosec, nexium or the like, are continued.Peptic ulcer disease or gastritis is also effected by the following factorscaused from a combination of too much acid production or too little protectivemucus production in the stomach.Factors that increase acid production include smoking and stress. If yousmoke, stopping smoking will often cure these issues without needing othermedications.Factors that decrease the stomach's production of protective mucus includealcohol consumption, smoking, aspirin and other anti-inflammatory use.Over the counter medications including antiacids and acid reducing medicationsincluding H2 blockers (Zantac and the like) and proton pump inhibitors(prilosec, prevacid and the like) neutralize or prevent acid production.Prescription strength proton pump inhibitors (PPIs) may be necessary if yoursymptoms persist. Carafate may be added to PPI treatment in refractory cases.Avoiding smoking, alcohol and antiinflammatory medications are important in thesuccessful treatment of peptic diseases.New or worsening symptoms such are epigastric pain, burning, difficultyswallowing or food sticking should be relayed to your physician. Feeling fullearly after eating, or black, tarry, foul smelling stools are also worrisome.If you have any difficulties or concerns, you should contact our officeimmediately.If you note any additional difficulties, questions, or concerns, you shouldcontact our office immediately @ [phone] and [facility].Garrett Hood PA-C 05/10/2017 11:02 AM SignedFOLLOW UP VISIT - ENDOSCOPYNAME: Reggie ReichYVESWILLY NO.: [id number] OF SERVICE: 05/10/2017DOB: 1975REFERRING PHYSICIAN: Suzanne PcpReggie is a patient I am following with Dr. Beckwith for chronic swallowingdifficulties and history of esophageal foreign body x 2. Patient notes he hashad ongoing issues with swallowing and food becoming stuck in his throat overthe last few years, worse with meat. Has tried chewing carefully andthoroughly but continues to note same complaints. Patient additionally hasfamily history of colon cancer and was in need of a high-risk screeningcolonoscopy. Dr. Beckwith performed upper and lower endoscopy on 05/01/17. Thepatient was found to have a normal colonoscopy. Upper endoscopy showederosions in gastric antrum, erythematous duodenopathy, gastritis, small hiatalhernia, and mildly severe reflux esophagitis. Multiple biopsies were taken.Pathology demonstrated:FINAL DIAGNOSIS1. Stomach, antrum, biopsy (A) - Helicobacter pylori-induced gastritis.- Negative for intestinal metaplasia.2. Gastroesophageal junction, biopsy (B) - Hyperplastic squamous esophagealmucosa with increased intraepithelial eosinophils (focally up toapproximately 16 eosinophils per high power field), see comment.3. Esophagus, mid, biopsy (C) - Mildly hyperplastic squamous esophagealmucosa with increased intraepithelial eosinophils (focally up toapproximately 8 eosinophils per high power field), see comment.BRIAN/katherine 05/02/[id number], 3. Sections show hyperplastic squamous esophageal mucosa with increasedintraepithelial eosinophils. Superficial eosinophilic layering,degranulation, and microabscesses are not identified. Overall, thehistomorphologic features are most in keeping with reflux esophagitis;however, eosinophilic esophagitis cannot be entirely excluded. Correlationwith the patient's clinical history, endoscopic findings and response tohigh dose proton pump inhibitors is recommended.The patient notes no new complaints since the procedure.VITALS: There were no vitals taken for this visit.On examination, the abdomen is benign.AssessmentIMPRESSION : history of esophageal foreign body. H. Pylori gastritis.Eosinophilic vs reflux esophagitis. Family history of colon cancerPLAN: If the patient notes any problems or changes in bowel function, thepatient should contact me immediately. Otherwise I recommend follow up EGD in3 months and follow-up colonoscopy in 5 years. HM updated and recall lettershave been generated-Begin Prevpac and complete as directed-Once finished with Prevpac, resume taking omeprazole 40 mg daily-Food diary-Follow up at 3 months to set up repeat EGD to recheck esophagitis as well asensure H. Pylori eradication. If still symptomatic and with same eosinophilicesophagitis findings on EGD at that time despite treatment with high-dose PPI,consider adding short course of steroid and possible GI referral-Call immediately if any worsening symptomsDiagnoses: (K29.70, B96.81) Helicobacter pylori gastritis (primary encounterdiagnosis)(K20.0) Eosinophilic esophagitisPatient verbalized understanding of all above and agreed with the planI spent 20 minutes in the visit, with more than 50% of the total scdz-il-wzxkysth of the visit in counseling / coordination of care. IRVING Borjas-CReferring Provider: JOSE BECKWITH [[id number]]Allergies As of Date: 05/10/2017(No Known Allergies)Date Reviewed: 05/10/2017Reviewed by: Lulu Fountain RN - Fully AssessedReason for Visit: Post Op [174] Cmt: endoscopyPrimary Visit Diagnosis:Helicobacter pylori gastritis [K29.70, B96.81] Other Visit Diagnosis:Eosinophilic esophagitis [K20.0]Order(s):clarithromy suze (BIAXIN) 500 mg tabTake 1 tablet by mouth twice daily for 14 days.Disp: 28 tabletRfl: 0 amoxicillin (POLYMOX, AMOXIL) 500 mg capsuleTake 2 capsules by mouth twice daily for 14 days.Disp: 56 capsuleRfl: 0 lansoprazole (PREVACID) 30 mg capsuleTake 1 capsule by mouth twice daily for 14 days.Disp: 28 capsuleRfl: 0 metroNIDAZOLE (FLAGYL) 500 mg tabletTake 1 tablet by mouth twice daily for 14 days.Disp: 28 tabletRfl: 0Prescriptions as of 05/10/2017 Sig: OMEPRAZOLE 40 MG CAPSULE,YESSICA* Take 1 capsule by mouth once * CLARITHROMYCIN 500 MG TABLET Take 1 tablet by mouth twice * AMOXICILLIN 500 MG CAPSULE Take 2 capsules by mouth twic* LANSOPRAZOLE 30 MG CAPSULE,DE* Take 1 capsule by mouth twice* METRONIDAZOLE 500 MG TABLET Take 1 tablet by mouth twice *Problem List As Of Date: 05/10/2017(None) Other instructions from your clinician: -Prevpac for 2 weeks -Once finished with Prevpac, resume omeprazole -Follow up in 3 months for recheck and to schedule follow-up EGD The following instructions are important for you related to your office visit today with the [facility]. INSTRUCTIONS FOLLOWING A NORMAL COLONOSCOPY W/ FAMILY HX COLON CANCER 5YR I discussed with you the findings of your colonoscopy. Since there were no worrisome abnormalities, I recommend you undergo repeat endoscopic screening every 5 years due to your family history of colon cancer. This is the current recommendation for colon cancer screening. If you note bleeding, change in bowel habits, or other suspicious colon related symptoms before that time, those symptoms should be evaluated as necessary. and INSTRUCTIONS FOR PEPTIC ULCER DISEASE/GASTRITIS - H PYLORI POSITIVE I discussed with you the findings of your upper endoscopy. Your upper endoscopy demonstrated signs of peptic ulcer disease or irritation. This can be seen as a range of issues from actual ulcers in the stomach or duodenum (first part of the small bowel) or irritation ranging from redness to more significant irritation with erosions of the stomach or duodenum. Your gastric biopsy demonstrated that your stomach has the H. Pylori bacteria. H. Pylori bacteria have been show to cause ulcers and gastritis. You will be given medications to eradicate that bacteria. The most common prescription is called the Prevpac. Prevpac (lansoprazole, clarithromycin, and amoxicillin) is used to treat Helicobacter pylori infections associated with ulcers. Each daily administration pack contains a single day's dose of lansoprazole, clarithromycin, and amoxicillin. Prevpac comes as an individual card containing a single day's dose of medications in blister pack form. There are morning and evening doses. If you are allergic to any of the medications, different combinations can be prescribed. These medications are usually given for 10-14 days. After that time, the antibiotics are stopped, but the proton pump inhibitor (PPI)... Prevacid, prilosec, nexium or the like, are continued. Peptic ulcer disease or gastritis is also effected by the following factors caused from a combination of too much acid production or too little protective mucus production in the stomach. Factors that increase acid production include smoking and stress. If you smoke, stopping smoking will often cure these issues without needing other medications. Factors that decrease the stomach's production of protective mucus include alcohol consumption, smoking, aspirin and other anti-inflammatory use. Over the counter medications including antiacids and acid reducing medications including H2 blockers (Zantac and the like) and proton pump inhibitors (prilosec, prevacid and the like) neutralize or prevent acid production. Prescription strength proton pump inhibitors (PPIs) may be necessary if your symptoms persist. Carafate may be added to PPI treatment in refractory cases. Avoiding smoking, alcohol and antiinflammatory medications are important in the successful treatment of peptic diseases. New or worsening symptoms such are epigastric pain, burning, difficulty swallowing or food sticking should be relayed to your physician. Feeling full early after eating, or black, tarry, foul smelling stools are also worrisome. If you have any difficulties or concerns, you should contact our office immediately. If you note any additional difficulties, questions, or concerns, you should contact our office immediately @ [phone] and ask to be transferred to the General Surgery department.Prescriptions ordered this encounter Disp Refills Start End CLARITHROMYCIN 500 MG TABLET 28 t* 0 05/10/2017 05/24/2017 Route: ORAL Sig: Take 1 tablet by mouth twice daily for 14 days. AMOXICILLIN 500 MG CAPSULE 56 c* 0 05/10/2017 05/24/2017 Route: ORAL Sig: Take 2 capsules by mouth twice daily for 14 days. LANSOPRAZOLE 30 MG CAPSULE,DELAYED R* 28 c* 0 05/10/2017 05/24/2017 Route: ORAL Sig: Take 1 capsule by mouth twice daily for 14 days. METRONIDAZOLE 500 MG TABLET 28 t* 0 05/10/2017 05/24/2017 Route: ORAL Sig: Take 1 tablet by mouth twice daily for 14 days.Follow-up and Disposition History RecordedEncounter Number: [id number] Status:Closed by GARRETT HOOD PA-C on 05/10/17 [facility] PROGRESSon 05-10-2017 PROGRESS HNO ID: [id number] thor: Garrett (Irving) GrafService: (none)Author Type: Physician AssistantType: Progress NotesFiled: 05/10/2017 11:02 AMNote Text:FOLLOW UP VISIT - ENDOSCOPYNAME: Reggie Wilhelm NO.: [id number] OF SERVICE: 05/10/2017DOB: 1975REFERRING PHYSICIAN: Suzanne PcpJerry is a patient I am following with Dr. Beckwith for chronic swallowingdifficulties and history of esophageal foreign body x 2. Patient noteshe has had ongoing issues with swallowing and food becoming stuck in histhroat over the last few years, worse with meat. Has tried chewingcarefully and thoroughly but continues to note same complaints. Patientadditionally has family history of colon cancer and was in need of ahigh-risk screening colonoscopy. Dr. Beckwith performed upper and lowerendoscopy on 05/01/17. The patient was found to have a normal colonoscopy. Upper endoscopy showed erosions in gastric antrum, erythematousduodenopathy, gastritis, small hiatal hernia, and mildly severe refluxesophagitis. Multiple biopsies were taken. Pathology demonstrated:FINAL DIAGNOSIS1. Stomach, antrum, biopsy (A) - Helicobacter pylori-induced gastritis.- Negative for intestinal metaplasia.2. Gastroesophageal junction, biopsy (B) - Hyperplastic squamousesophagealmucosa with increased intraepithelial eosinophils (focally up toapproximately 16 eosinophils per high power field), see comment.3. Esophagus, mid, biopsy (C) - Mildly hyperplastic squamous esophagealmucosa with increased intraepithelial eosinophils (focally up toapproximately 8 eosinophils per high power field), see comment.BRIAN/katherine 05/02/[id number], 3. Sections show hyperplastic squamous esophageal mucosa with increasedintraepithelial eosinophils. Superficial eosinophilic layering,degranulation, and microabscesses are not identified. Overall, thehistomorphologic features are most in keeping with reflux esophagitis;however, eosinophilic esophagitis cannot be entirely excluded. Correlationwith the patient's clinical history, endoscopic findings and response tohigh dose proton pump inhibitors is recommended.The patient notes no new complaints since the procedure.VITALS: There were no vitals taken for this visit.On examination, the abdomen is benign.AssessmentIMPRESSION : history of esophageal foreign body. H. Pylori gastritis.Eosinophilic vs reflux esophagitis. Family history of colon cancerPLAN: If the patient notes any problems or changes in bowel function, thepatient should contact me immediately. Otherwise I recommend follow upEGD in 3 months and follow-up colonoscopy in 5 years. HM updated pandacall letters have been generated-Begin Prevpac and complete as directed-Once finished with Prevpac, resume taking omeprazole 40 mg daily-Food diary-Follow up at 3 months to set up repeat EGD to recheck esophagitis as wellas ensure H. Pylori eradication. If still symptomatic and with sameeosinophilic esophagitis findings on EGD at that time despite treatmentwith high-dose PPI, consider adding short course of steroid and possibleGI referral-Call immediately if any worsening symptomsDiagnoses: (K29.70, B96.81) Helicobacter pylori gastritis (primaryencounter diagnosis)(K20.0) Eosinophilic esophagitisPatient verbalized understanding of all above and agreed with the planI spent 20 minutes in the visit, with more than 50% of the yuwzionny-fy-mezt time of the visit in counseling / coordination of care. Garrett Hood PA-C [facility] CNCOon 05-01-2017 CNCO Letter TextHow to ac tivate your [employer] Account 1. Review the [employer] Activation Steps at [email or web address] 2. You will use this custom, ldi-dxcu-qcn activation code to set up account: [email or web address] 3. This access code is good only for 60 days.Dear Reggie Reich:Thank you for your recent request to activate your [facility] [employer]?account. The following information will be necessary to access your accountfor the first time:Information needed for sign-up:Your custom activation code used one-time only for the initial accountset-up.Your date of birthThe last 4 digits of your social security numberWhat to do next:Fill in the requested information on the Identify Yourself Form [email or web address] , click Next.Create your login and password, choose a [employer] ID and password that willbeeasy for you to use, but impossible for anyone else to guess.Pick a security question that will assist you in the event you forget yourpassword the next time you log-on.If you have difficulty activating your account, please call our Metaplace at [phone] or toll free at .We hope you enjoy using [employer]!Kindest Regards,[facility] [employer] Team [facility] HISTORY PHYSICALon 7 HISTORY PHYSICAL HNO ID: [id number] thor: Jose Ceronervice: General SurgeryAuthor Type: PhysicianType: HANDPFiled: 05/01/2017 9:16 AMNote Text:HISTORY AND PHYSICAL?Reggie Reich1975?REFERRING PHYSICIAN: Self?CHIEF COMPLAINT: Consult (post egd for food bolus)?HPI: The patient is a 42 year old male referred for endoscopy. Reggienotes no history of colon complaints.?The patient notes the following upper complaints: Reggie deniesabdominal pain.. Reggie notes heartburn. Reggie notes dysphagia. Henotes a history of dysphagia to most solid foods. If he does not chew hissolid food very carefully he will note dysphasia symptoms. He drinkslarge quantities of liquids with meals to help his solid food pass. Christina had previous issues with [facility]. [facility] with a chicken esophagealforeign body which I was involved to remove endoscopically. Reggie deniesa history of ulcers/ peptic ulcer disease.??Reggie has not undergone prior endoscopy. His father was diagnosed withcolon cancer in his 40s??? PAST MEDICAL HISTORYPAST MEDICAL HISTORYDiagnosis Date- Foreign body in esophagus ??? PAST SURGICAL HISTORYPAST SURGICAL HISTORYProcedure Laterality Date- APPENDECTOMY HX ? 90's- EGD W/REM FB STOMACH/DUOD ? 03/30/2017- ESOPHAGOSCP RIG TRNSO REM FB ? 08/30/13??? CURRENT MEDICATIONS ?Current Outpatient Prescriptions:peg 3350-Electrolytes (GOLYTELY) 236-22.74-6.74 -5.86 gram suspension Take4,000 mL by mouth one time only for 1 dose. Refer to printed prepinstructions from your doctor.?No current facility-administered medications for this visit.?ALLERGIES: Review of patient's allergies indicates no known allergies.?PERSONAL HISTORY: SOCIAL HISTORY Social History Marital status: Spouse name: Years of education: Number of children:?Social History Main Topics Smoking status: Never Smoker? Alcohol use: No Drug use: No?FAMILY HISTORY: FAMILY HISTORYFAMILY HISTORYProblem Relation Age of Onset- Colon Cancer Father ?? ? late 40's- Alcohol/Drug Father ?- Coronary Artery Disease Mother ?- Prostate Cancer Maternal Uncle ?- Cancer Paternal Grandfather ?? ? brain- Cancer Paternal Aunt ?? ? unknown- Alcohol/Drug Sister ?- Alcohol/Drug Brother ???REVIEW OF SYMPTOMS: The review of systems data was entered by the nurse and reviewed by me?There are no exam notes on file for this visit.?PHYSICAL EXAMINATION:?General: The patient is 42 year old male, well nourished, well hydratedin no acute distress. The patient is oriented to time, place, and person.?VITALS: Blood pressure 142/98, pulse 90, height 182.9 cm (6'), axiyel739.8 kg (231 lb). Body mass index is 31.33 kg/(m2).?HEENT: Normal cephalic, ataumatic, pupils are equally round, sclera areanicteric, mucous membranes are moist, oropharynx is clear. Neck has nomasses, asymmetry or lymphadenopathy. Thyroid is unremarkable.?Respiratory: Clear to auscultation and percussion. Normal respiratoryexcursion and pattern.?Cardiac: Examination is regular rate and rhythm.?Abdominal exam: Soft, nontender, with no palpable masses. Nohepatosplenomegaly. No palpable hernias.?Rectal exam: exam deferred?Extremities: no clubbing, cyanosis or edema. No adenopathy.?Other:?LABORATO RY VALUES: As Noted?RADIOLOGIC STUDIES: As Noted?AssessmentIMPRESSION: Family history of colon cancer, esophageal foreign body,dysphasia?PLAN: I plan to perform upper and lower endoscopy. We discussed therisks and benefits of the planned endoscopy. I have informed the patientthat complications can occur including failure to complete the endoscopyand perforation. The patient had the opportunity to ask questionsconcerning the planned endoscopy. My staff has also explained theprocedure to the patient in understandable terms and has given the patientprinted material concerning the procedure. The patient freely consents tosurgery.?I plan to use golytely bowel preparation for endoscopy???Diagnoses: (T18.108A) Esophageal foreign body, initial encounter (primaryencounter diagnosis)(R13.10) Dysphagia, unspecified type(Z80.0) Family history of colon cancer?Return to Clinic: The patient is instructed to follow-up with me after thetesting has been completed.? Jose Beckwith MD [facility] NURSING PROGon 05-01-2017 NURSING PROG HNO ID: [id number] thor: Andra Angulo Rn: (none)Author Type: Registered NurseType: Nursing Progress NoteFiled: 05/01/2017 11:23 AMNote Text:Patient did not experience a fall prior to discharge.Patient did not experience a burn prior to discharge.Jaclyn Bell RN [facility] NURSING PROG HNO ID: [id number] thor: Andra Angulo Rn: (none)Author Type: Registered NurseType: Nursing Progress NoteFiled: 05/01/2017 11:04 AMNote Text:Patient became quite pale and felt abdominal cramping. Patient back downto left side and warm blanket to abdomen. Patient able to pass flatus.Jaclyn Bell RN [facility] NURSING PROG HNO ID: [id number] thor: Andra Angulo Rn: (none)Author Type: Registered NurseType: Nursing Progress NoteFiled: 05/01/2017 10:41 AMNote Text: Patient arrived to PACU, on left side, abdomen soft. Patient restingcomfortably.Jaclyn Bell RN [facility] NURSING PROG HNO ID: [id number] thor: Andra Peters Rn: NursingAuthor Type: Registered NurseType: Nursing Progress NoteFiled: 05/01/2017 10:27 AMNote Text:Preoperative order for IV Antibiotic Prophylaxis is N/A.Patient did not experience a fall within the Intraoperative proceduralarea.Patient did not experience a burn within the Intraoperative proceduralarea.Sharon Soriano RN [facility] NURSING PROG HNO ID: [id number] thor: Andra Angulo Rn: (none)Author Type: Registered NurseType: Nursing Progress NoteFiled: 05/01/2017 11:26 AMNote Text:Patient did not experience a fall within the Preoperative area.Patient did not experience a burn within the Preoperative area.[facility] PRE-OP NURSING HAND OFF NOTESBAR Hand off given to Sharon Soriano RN.Hand off was communicated verbally and at the patient's bedside and allquestions were answered.Jaclyn Bell RNCrystbrittany Bell RN [facility] PT EDon 05-01-2017 PT ED HNO ID: [id number] thor: Andra Angulo Rn: (none)Author Type: Registered NurseType: Patient EducationFiled: 05/01/2017 11:10 AMNote Text:AMBULATORY PATIENT EDUCATIONTOPIC: Survival Skills: GI PROCEDURES: EGDColonoscopyREADINESS TO LEARNCOGNITIVE ABILITY: Alert and orientedMOTIVATION TO LEARN: EagerInterestedFAMILY SUPPORT: High - Very involved in pt careINSTRUCTION PROVIDED TO: Patient and SpousePATIENT LEARNS BEST BY: Individual InstructionWritten Instruction - Hand-outsVerbal InstructionMultiple MethodsFACTORS AFFECTING LEARNING: NonePHYSICAL LIMITATIONS AFFECTING LEARNING: NoneLEARNING RESPONSEDIAGNOSIS: Dysphagia, family historyMETHOD OF INSTRUCTION: Individual instructionWritten instruction - handoutsVerbal instructionPATIENT / FAMILY RESPONSE: Verbalizes understanding of: INFECTIONMANAGEMENT-Signs and symptoms of an infection and importance ofcontacting the physicianMEDICAL REGIMEN-Importance of following prescribed medical regimenPAIN MANAGEMENT-Effective strategies to manage pain in addition to painmedicationPHYSICAL RESTRICTIONS-Physical restrictions and recommendations afterdischarge from the hospitalPOST-PROCEDURE INSTRUCTIONS-Correct actions to take to reduce postprocedure complicationsPATIENT SAFETY PRINCIPLESSYMPTOM MANAGEMENT-Correct actions to take to manage symptoms associatedwith his/her disease/illnessWORSENING CONDITION-Signs and symptoms of a worsening condition thatwarrant a call to the physicianFOLLOW-UP PLAN: Patient instructed to call with any further issuesFollow up phone call.Contact information given.SUPPLEMENTAL MATERIAL: Patient's medication list and dischargeinstructions were reviewed with and given to patient and/or caregiver.Patient and/or caregiver given the opportunity to ask questions andverbalized their understanding of content.REFERRAL (RECOMMENDATION): NoneElectronically Signed By: Jaclyn Bell RN In Department: AMBULATORYSURGERY [facility] SURGICAL PATHOLOGYon 017 SURGICAL PATHOLOGY [facility]: [id number] Physician: JOSE BECKWITH ([id number]) F INAL DIAGNOSIS1. Stomach, antrum, biopsy (A) - Helicobacter pylori-induced gastritis.- Negative for intestinal metaplasia.2. Gastroesophageal junction, biopsy (B) - Hyperplastic squamous esophagealmucosa with increased intraepithelial eosinophils (focally up toapproximately 16 eosinophils per high power field), see comment.3. Esophagus, mid, biopsy (C) - Mildly hyperplastic squamous esophagealmucosa with increased intraepithelial eosinophils (focally up toapproximately 8 eosinophils per high power field), see comment.BRIAN/katherine 05/02/[id number], 3. Sections show hyperplastic squamous esophageal mucosa with increasedintraepithelial eosinophils. Superficial eosinophilic layering,degranulation, and microabscesses are not identified. Overall, thehistomorphologic features are most in keeping with reflux esophagitis;however, eosinophilic esophagitis cannot be entirely excluded. Correlationwith the patient's clinical history, endoscopic findings and response tohigh dose proton pump inhibitors is recommended.Elaina Black M.D.(Electronic Signature) SPEC IMEN SUBMITTEDA: ANTRUM, BIOPSY B: ESOPHAGOGASTRIC JUNCTION, BIOPSY C: MID-ESOPHAGUS, BIOPSY CLINICAL DATAZ12.11GROSS DESCRIPTIONA. Received in formalin is one piece of west, soft tissue measuring 0.6 x0.2 x 0.1 cm. Totally submitted in one cassette.B. Received in formalin are three pieces of west-white, soft tissueaggregating to 0.9 x 0.2 x 0.1 cm. Totally submitted in one cassette.C. Received in formalin are four pieces of west-white, soft tissueaggregating to 1.2 x 0.2 x 0.1 cm. Totally submitted in one cassette.Gross examination performed at [facility], [address] [place], [place] [id number] 05/02/2017 2:11:23 AMPatient ID #: [id number] of Report: 05/02/2017Date of Procedure: 05/01/2017Date of Receipt: 05/01/2017Submitted by: JOSE BECKWITH ([id number])Location: [id number] interpretation performed at [place] [address]. [facility] Comment on above: Performed By: #### P ATHS ####[facility] [place], [place] [phone] PROGRESSon 04-13-2017 PROGRESS HNO ID: [id number] thor: Jose Ceronervice: (none)Author Type: PhysicianType: Progress NotesFiled: 04/12/2017 11:12 PMNote Text:HISTORY AND PHYSICALJerry Ray1975REFERRING PHYSICIAN: SelfCHIEF COMPLAINT: Consult (post egd for food bolus)HPI: The patient is a 42 year old male referred for endoscopy. Jerrynotes no history of colon complaints.The patient notes the following upper complaints: Reggie deniesabdominal pain.. Reggie notes heartburn. Reggie notes dysphagia. Henotes a history of dysphagia to most solid foods. If he does not chew hissolid food very carefully he will note dysphasia symptoms. He drinkslarge quantities of liquids with meals to help his solid food pass. Christina had previous issues with [facility] foreign [facility]. [facility] with a chicken esophagealforeign body which I was involved to remove endoscopically. Reggie deniesa history of ulcers/ peptic ulcer disease.Reggie has not undergone prior endoscopy. His father was diagnosed withcolon cancer in his 40sPAST MEDICAL HISTORYDiagnosis Date- Foreign body in esophagusPAST SURGICAL HISTORYProcedure Laterality Date- APPENDECTOMY HX 90's- EGD W/REM FB STOMACH/DUOD 03/30/2017- ESOPHAGOSCP RIG TRNSO REM FB 08/30/13urrent Outpatient Prescriptions:peg 3350-Electrolytes (GOLYTELY) 236-22.74-6.74 -5.86 gram suspension Take4,000 mL by mouth one time only for 1 dose. Refer to printed prepinstructions from your doctor.No current facility-administered medications for this visit.ALLERGIES: Review of patient's allergies indicates no known allergies.PERSONAL HISTORY: Social History Marital status: Spouse name: Years of education: Number of children:Social History Main Topics Smoking status: Never Smoker Alcohol use: No Drug use: NoFAMILY HISTORY:FAMILY HISTORYProblem Relation Age of Onset- Colon Cancer Father late 40's- Alcohol/Drug Father- Coronary Artery Disease Mother- Prostate Cancer Maternal Uncle- Cancer Paternal Grandfather brain- Cancer Paternal Aunt unknown- Alcohol/Drug Sister- Alcohol/Drug BrotherREVIEW OF SYMPTOMS: The review of systems data was entered by the nurse and reviewed by meThere are no exam notes on file for this visit.PHYSICAL EXAMINATION:General: The patient is 42 year old male, well nourished, well hydratedin no acute distress. The patient is oriented to time, place, and person.VITALS: Blood pressure 142/98, pulse 90, height 182.9 cm (6'), nkoflx130.8 kg (231 lb). Body mass index is 31.33 kg/(m2).HEENT: Normal cephalic, ataumatic, pupils are equally round, sclera areanicteric, mucous membranes are moist, oropharynx is clear. Neck has nomasses, asymmetry or lymphadenopathy. Thyroid is unremarkable.Respiratory: Clear to auscultation and percussion. Normal respiratoryexcursion and pattern.Cardiac: Examination is regular rate and rhythm.Abdominal exam: Soft, nontender, with no palpable masses. Nohepatosplenomegaly. No palpable hernias.Rectal exam: exam deferredExtremities: no clubbing, cyanosis or edema. No adenopathy.Other:LABORATORY VALUES: As NotedRADIOLOGIC STUDIES: As NotedAssessmentIMPRESSION: Family history of colon cancer, esophageal foreign body,dysphasiaPLAN: I plan to perform upper and lower endoscopy. We discussed therisks and benefits of the planned endoscopy. I have informed the patientthat complications can occur including failure to complete the endoscopyand perforation. The patient had the opportunity to ask questionsconcerning the planned endoscopy. My staff has also explained theprocedure to the patient in understandable terms and has given the patientprinted material concerning the procedure. The patient freely consents tosurgery.I plan to use golytely bowel preparation for endoscopyDiagnoses: (T18.108A) Esophageal foreign body, initial encounter (primaryencounter diagnosis)(R13.10) Dysphagia, unspecified type(Z80.0) Family history of colon cancerReturn to Clinic: The patient is instructed to follow-up with me after thetesting has been completed. Jose Beckwith MD [facility] CNOVon 04-12-2017 CNOV Office Visit (GENSWS) -------DAMIRREGGIE ([id number]) [address] [facility] Time Provider Department04/12/17 8:00 AM JOSE BECKWITH During your visit today, we recorded the following information about you: Pulse Blood pressure Weight Height 90/minute 142/98 104.8 kg 1.829 Erin Beckwith MD 04/12/2017 8:31 AM SignedCONSCIOUS SEDATIONHow to Prepare for Your Colonoscopy Using Golytely, Nulytely,Trilyte, or Colyte PreparationsIMPORTANT - Please Read These Instructions at Least 2 Weeks Before YourColonoscopyKey Instructions:Your bowel must be empty so that your doctor can clearly view your colon.Follow all of the instructions in this handout EXACTLY as they are written.If you do NOT follow the directions for when to start drinking the bowelpreparation (see next page), your colonoscopy WILL be cancelled.? Do NOT eat any solid food the ENTIRE day before your colonoscopy.? Buy your bowel preparation at least 5 days before your colonoscopy.? Do NOT mix the solution until the day before your colonoscopy.Designated Life Skills Consultant on the Day of Your ExamA responsible family member or friend MUST come with you to your colonoscopyand REMAIN in the endoscopy area until you are discharged! You are NOT ALLOWEDto drive, take a taxi or bus, or leave the Endoscopy Center ALONE.If you do not have a responsible electric mule driver (family member or friend) with you totake you home, your exam can not be done with sedation and will be cancelled.MedicationsSome of the medicines you take may need to be stopped or adjusted before yourcolonoscopy.You MUST call the doctor who ordered any of the following medicines at least 2weeks before your colonoscopy.? Blood Thinners -- such as Coumadin? (warfarin), Plavix ? (clopidogrel),Ticlid ? (ticlopidine hydrochloride), Agrylin ? (anagrelide), Xarelto(rivaroxaban), Pradaxa (dabigatran), and Effient (Prasugrel).? Insulin or diabetes pills. Please call the doctor that monitors your glucoselevels. Your insulin dosage may need to be adjusted due to diet restrictionsrequired with this bowel preparation. (Please bring your diabetes medicationswith you on the day of your procedure.)If you take aspirin, continue it and ALL other medications prescribed by yourdoctor. On the day of your colonoscopy, take your medications with a sip ofwater.Five (5) Days Before Your ColonoscopyDo NOT take medications that stop diarrhea-- such as Imodium?, Kaopectate?, orPepto Bismol?.Do NOT take fiber supplements--such as Metamucil?, Citrucel?, or Perdiem?.Do NOT take products that contain iron--such as multi-vitamins--(the labellists what is in the products).Do NOT take vitamin E.Buy the prescription bowel preparation at your local pharmacy or drugstore.Three (3) Days Before Your ColonoscopyDo NOT eat high-fiber foods--such as popcorn, beans, seeds (flax, sunflower,quinoa), multigrain bread, nuts, salad/vegetables, or fresh and dried fruit.One (1) Day Before Your ColonoscopyOnly drink clear liquids the ENTIRE DAY before your colonoscopy. Do NOT eatany solid foods. Drink at least 8 ounces of clear liquids every hour afterwaking up. The clear liquids you can drink include:? water, apple or white grape juice; broth; coffee or tea (without milk orcreamer); clear carbonated beverages such as gayla lucio or lemon-afognak soda;Gatorade? or other sports drinks (not red); Eric-Aid? or other flavored drinks(not red); plain jello or other gelatins (not red); popsicles (not red)? Do NOT drink alcohol on the day before or the day of the procedure.When to Mix and Drink Your Bowel PreparationFollow the instructions on the label. After mixing, place the solution in therefrigerator for a couple of hours before drinking. You may add the flavorpacket that came with the bowel preparation. DO NOT add ice, sugar or anyflavorings to the solution.There are two ways your doctor may dose the bowel preparation for yourcolonoscopy. Follow the dosing recommendations, split dosing or single dosing,as prescribed by your doctor.Split dosing cleans the bowel better and is easier to drink than single dosing.Split dosing means you drink half of the bowel preparation the evening beforethe colonoscopy and half of the bowel preparation the morning of thecolonoscopy. Single dosing means you drink all of the bowel preparation on asingle dayMorning Appointment (Before 12 noon)Split DosingStep 1:Start drinking the bowel preparation at 6 PM the evening before yourcolonoscopy. Drink an 8 oz glass of bowel preparation every 10 minutes for atotal of 8 glasses.You may continue to drink clear liquids until bedtime.Step 2:The day of the colonoscopy (4 hours before your exam). Drink an 8 oz glass ofbowel preparation every 10 minutes for a total of 8 glasses.You may continue to drink clear liquids up to 2 hours before your exam. If youtake aspirin, take it and ALL other prescribed medicines with a sip of water onthe day of your colonoscopy.ORSingle Dosing, Evening Before ColonoscopyStart drinking the bowel preparation at 6 PM the evening before yourcolonoscopy. Drink an 8 oz glass of bowel preparation every 10 minutes. Youmust finish drinking the solution by 9 PM.You may continue to drink clear liquids up to 2 hours before your exam. If youtake aspirin, take it and ALL other prescribed medicines with a sip of water onthe day of your colonoscopy. Afternoo n Appointment (After 12 noon)Single Dosing, Morning of ColonoscopyStart drinking the bowel preparation at 6 AM the day of your colonoscopy. Drinkan 8 oz glass of bowel preparation every 10 minutes. You must finish drinkingthe solution by 9 AM.You may continue to drink clear liquids up to 2 hours before your exam. If youtake aspirin, take it and ALL other prescribed medicines with a sip of water onthe day of your colonoscopy.Contact InformationIf you are unable to keep your appointment or have any questions about theinstructions, please call the facility where the procedure is being performed.Call between the hours of 8:00 AM and 5:00 PM. If you are calling after 5:00PM, please call Nurse personal service workers at [phone].COLONOSCOPY PROCEDURE OVERVIEWPlease read prior to the procedureWhat is a Colonoscopy?A colonoscopy is an outpatient procedure in which the inside of the largeintestine (colon and rectum) is examined. A colonoscopy is commonly used toevaluate gastrointestinal symptoms, such as rectal and intestinal bleeding,abdominal pain, or changes in bowel habits. Colonoscopies are also performed inindividuals without symptoms to check for colorectal polyps or cancer. Ascreening colonoscopy is recommended for anyone 50 years of age and older, andfor anyone with parents, siblings or children with a history of colorectalcancer or polyps.What happens before a colonoscopy?To have a successful colonoscopy, your bowel must be empty so that yourphysician can clearly view the colon. To do this, it is very important to readand follow all of the instructions given to you at least 2 weeks BEFORE yourexam.If your bowel is not empty, your colonoscopy will not be successful and mayhave to be repeated.If you feel nauseated or vomit while taking the bowel preparation, wait 30minutes before drinking more fluid and start with small sips of solution. Someactivity (such as walking) or a few soda crackers may help decrease the nauseayou are feeling. If the nausea persists, please contact nurse cable installation manager [phone].You may experience skin irritation around the anus due to the passage of liquidstools. To prevent and treat skin irritation, you should: Apply Vaseline orDesitin ointment to the skin around the anus before drinking the bowelpreparation medications. These products can be purchased at any drug store.Wipe the skin after each bowel movement with disposable wet wipes instead oftoilet paper. These are found in the toilet paper area of the store. Sit in abathtub filled with warm water for 10 to 15 minutes after you finish passing astool; after soaking, blot the skin dry with a soft cloth, apply Vaseline orDesitin ointment to the anal area, and place a cotton ball just outside youranus to absorb leaking fluid.What happens during a colonoscopy?During a colonoscopy, an experienced physician uses a colonoscope (a long,flexible instrument about 1/2 inch in diameter) to view the lining of thecolon. The colonoscope is inserted into the rectum and advanced through thelarge intestine. If necessary during a colonoscopy, small amounts of tissue canbe removed for analysis (a biopsy) and polyps can be identified and entirelyremoved. In many cases, a colonoscopy allows accurate diagnosis and treatmentof colorectal problems without the need for a major operation.You are asked to wear a hospital gown and an IV will be started.You are given a pain reliever and a sedative intravenously (in your vein). Youwill feel relaxed and somewhat drowsy. You will lie on your left side, withyour knees drawn up towards your chest. A small amount of air is used to expandthe colon so the physician can see the colon camarena. You may feel mild crampingduring the procedure. Cramping can be reduced by taking slow, deep breaths.The colonoscope is slowly withdrawn while the lining of your bowel is carefullyexamined.The procedure lasts from 30 minutes to 1 hour.What happens after a colonoscopy?You will stay in a recovery room for observation until you are ready fordischarge.You may feel some cramping or a sensation of having gas, but this quicklypasses.If sedation has been given, a responsible electric mule driver (a family member or friend)must drive you home.Avoid alcohol, driving, and operating machinery for 24 hours following theprocedure.Unless otherwise instructed, you may immediately return to your normal diet. Werecommend you wait until the day after your procedure to resume normalactivities.If polyps were removed or a biopsy was taken, the physician performing yourcolonoscopy will tell you when it is safe to resume taking your blood thinners.If a biopsy was taken or a polyp was removed, you may notice a little amount ofrectal bleeding for 1 to 2 days after the procedure. If you have a large amountof rectal bleeding, high or persistent fevers, or severe abdominal pain withinthe next 2 weeks, please go to your local emergency room and call the physicianwho performed your exam.Jose Beckwith MD 04/12/2017 11:12 PM SignedHISTORY AND PHYSICALJerry Ray1975REFERRING PHYSICIAN: SelfCHIEF COMPLAINT: Consult (post egd for food bolus)HPI: The patient is a 42 year old male referred for endoscopy. Reggie notes nohistory of colon complaints.The patient notes the following upper complaints: Reggie denies abdominalpain.. Reggie notes heartburn. Reggie notes dysphagia. He notes a history ofdysphagia to most solid foods. If he does not chew his solid food verycarefully he will note dysphasia symptoms. He drinks large quantities ofliquids with meals to help his solid food pass. He has had previous issueswith esophageal foreign bodies. [facility] with a chicken esophageal foreign body which I was involvedto remove endoscopically. Reggie denies a history of ulcers/ peptic ulcerdisease.Reggie has not undergone prior endoscopy. His father was diagnosed with coloncancer in his 40sPAST MEDICAL HISTORYDiagnosis Date- Foreign body in esophagusPAST SURGICAL HISTORYProcedure Laterality Date- APPENDECTOMY HX 's- EGD W/REM FB STOMACH/DUOD 03/30/2017- ESOPHAGOSCP RIG TRNSO REM FB 08/30/13urrent Outpatient Prescriptions:peg 3350-Electrolytes (GOLYTELY) 236-22.74-6.74 -5.86 gram suspension Take4,000 mL by mouth one time only for 1 dose. Refer to printed prep instructionsfrom your doctor.No current facility-administered medications for this visit.ALLERGIES: Review of patient's allergies indicates no known allergies.PERSONAL HISTORY: Social History Marital status: Spouse name: Years of education: Number of children:Social History Main Topics Smoking status: Never Smoker Alcohol use: No Drug use: NoFAMILY HISTORY:FAMILY HISTORYProblem Relation Age of Onset- Colon Cancer Father late 40's- Alcohol/Drug Father- Coronary Artery Disease Mother- Prostate Cancer Maternal Uncle- Cancer Paternal Grandfather brain- Cancer Paternal Aunt unknown- Alcohol/Drug Sister- Alcohol/Drug BrotherREVIEW OF SYMPTOMS: The review of systems data was entered by the nurse and reviewed by meThere are no exam notes on file for this visit.PHYSICAL EXAMINATION:General: The patient is 42 year old male, well nourished, well hydrated in noacute distress. The patient is oriented to time, place, and person.VITALS: Blood pressure 142/98, pulse 90, height 182.9 cm (6'), weight 104.8 kg(231 lb). Body mass index is 31.33 kg/(m2).HEENT: Normal cephalic, ataumatic, pupils are equally round, sclera areanicteric, mucous membranes are moist, oropharynx is clear. Neck has nomasses, asymmetry or lymphadenopathy. Thyroid is unremarkable.Respiratory: Clear to auscultation and percussion. Normal respiratoryexcursion and pattern.Cardiac: Examination is regular rate and rhythm.Abdominal exam: Soft, nontender, with no palpable masses. Nohepatosplenomegaly. No palpable hernias.Rectal exam: exam deferredExtremities: no clubbing, cyanosis or edema. No adenopathy.Other:LABORATORY VALUES: As NotedRADIOLOGIC STUDIES: As NotedAssessmentIMPRESSION: Family history of colon cancer, esophageal foreign body, dysphasiaPLAN: I plan to perform upper and lower endoscopy. We discussed the risksand benefits of the planned endoscopy. I have informed the patient thatcomplications can occur including failure to complete the endoscopy andperforation. The patient had the opportunity to ask questions concerning theplanned endoscopy. My staff has also explained the procedure to the patient inunderstandable terms and has given the patient printed material concerning theprocedure. The patient freely consents to surgery.I plan to use golytely bowel preparation for endoscopyDiagnoses: (T1108A) Esophageal foreign body, initial encounter (primaryencounter diagnosis)(R13.10) Dysphagia, unspecified type(Z80.0) Family history of colon cancerReturn to Clinic: The patient is instructed to follow-up with me after thetesting has been completed. Jose Beckwith, MDReferring Provider: SELF [[id number]]Allergies As of Date: 04/12/2017(No Known Allergies)Date Reviewed: 04/12/2017Reviewed by: Lulu Fountain RN - Fully AssessedReason for Visit: Consult [173] Cmt: post egd for food bolusPrimary Visit Diagnosis:Esophageal foreign body, initial encounter [T18.108A] Other Visit Diagnoses:Dysphagia, unspecified type [R13.10] Family history of colon cancer [Z80.0]Order(s):BO PT ED DIGESTIVE DISEASES [[id number]] Order #: [id number]. #:[id number] -CCQty: 1 peg 3350-Electrolytes (GOLYTELY) 236-22.74-6.74 -5.86 gram suspensionTake 4,000 mL by mouth one time only for 1 dose. Refer to printed prep instructions from your doctor.Disp: 1 BottleRfl: 0 EGD [[id number]] Order #: [id number] FUTURE COLONOSCOPY, SCREENING, HIGH RISK [[id number]] Order #: [id number] FUTUREPrescriptions as of 04/12/2017 Sig: PEG 3350-ELECTROLYTES 236 GRA* Take 4,000 mL by mouth one ti*Problem List As Of Date: 04/12/2017(None) Other instructions from your clinician: CONSCIOUS SEDATION How to Prepare for Your Colonoscopy Using Golytely, Nulytely, Trilyte, or Colyte Preparations IMPORTANT - Please Read These Instructions at Least 2 Weeks Before Your Colonoscopy Sampson Instructions: Your bowel must be empty so that your doctor can clearly view your colon. Follow all of the instructions in this handout EXACTLY as they are written. If you do NOT follow the directions for when to start drinking the bowel preparation (see next page), your colonoscopy WILL be cancelled. ? Do NOT eat any solid food the ENTIRE day before your colonoscopy. ? Buy your bowel preparation at least 5 days before your colonoscopy. ? Do NOT mix the solution until the day before your colonoscopy. Designated Life Skills Consultant on the Day of Your Exam A responsible family member or friend MUST come with you to your colonoscopy and REMAIN in the endoscopy area until you are discharged! You are NOT ALLOWED to drive, take a taxi or bus, or leave the Endoscopy Center ALONE. If you do not have a responsible electric mule driver (family member or friend) with you to take you home, your exam can not be done with sedation and will be cancelled. Medications Some of the medicines you take may need to be stopped or adjusted before your colonoscopy. You MUST call the doctor who ordered any of the following medicines at least 2 weeks before your colonoscopy. ? Blood Thinners -- such as Coumadin? (warfarin), Plavix ? (clopidogrel), Ticlid ? (ticlopidine hydrochloride), Agrylin ? (anagrelide), Xarelto (rivaroxaban), Pradaxa (dabigatran), and Effient (Prasugrel). ? Insulin or diabetes pills. Please call the doctor that monitors your glucose levels. Your insulin dosage may need to be adjusted due to diet restrictions required with this bowel preparation. (Please bring your diabetes medications with you on the day of your procedure.) If you take aspirin, continue it and ALL other medications prescribed by your doctor. On the day of your colonoscopy, take your medications with a sip of water. Five (5) Days Before Your Colonoscopy Do NOT take medications that stop diarrhea-- such as Imodium?, Kaopectate?, or Pepto Bismol?. Do NOT take fiber supplements--such as Metamucil?, Citrucel?, or Perdiem?. Do NOT take products that contain iron--such as multi-vitamins--(the label lists what is in the products). Do NOT take vitamin E. Buy the prescription bowel preparation at your local pharmacy or drugstore. Three (3) Days Before Your Colonoscopy Do NOT eat high-fiber foods--such as popcorn, beans, seeds (flax, sunflower, quinoa), multigrain bread, nuts, salad/vegetables, or fresh and dried fruit. One (1) Day Before Your Colonoscopy Only drink clear liquids the ENTIRE DAY before your colonoscopy. Do NOT eat any solid foods. Drink at least 8 ounces of clear liquids every hour after waking up. The clear liquids you can drink include: ? water, apple or white grape juice; broth; coffee or tea (without milk or creamer); clear carbonated beverages such as gayla lucio or lemon-afognak soda; Gatorade? or other sports drinks (not red); Eric-Aid? or other flavored drinks (not red); plain jello or other gelatins (not red); popsicles (not red) ? Do NOT drink alcohol on the day before or the day of the procedure. When to Mix and Drink Your Bowel Preparation Follow the instructions on the label. After mixing, place the solution in the refrigerator for a couple of hours before drinking. You may add the flavor packet that came with the bowel preparation. DO NOT add ice, sugar or any flavorings to the solution. There are two ways your doctor may dose the bowel preparation for your colonoscopy. Follow the dosing recommendations, split dosing or single dosing, as prescribed by your doctor. Split dosing cleans the bowel better and is easier to drink than single dosing. Split dosing means you drink half of the bowel preparation the evening before the colonoscopy and half of the bowel preparation the morning of the colonoscopy. Single dosing means you drink all of the bowel preparation on a single day Morning Appointment (Before 12 noon) Split Dosing Step 1: Start drinking the bowel preparation at 6 PM the evening before your colonoscopy. Drink an 8 oz glass of bowel preparation every 10 minutes for a total of 8 glasses. You may continue to drink clear liquids until bedtime. Step 2: The day of the colonoscopy (4 hours before your exam). Drink an 8 oz glass of bowel preparation every 10 minutes for a total of 8 glasses. You may continue to drink clear liquids up to 2 hours before your exam. If you take aspirin, take it and ALL other prescribed medicines with a sip of water on the day of your colonoscopy. OR Single Dosing, Evening Before Colonoscopy Start drinking the bowel preparation at 6 PM the evening before your colonoscopy. Drink an 8 oz glass of bowel preparation every 10 minutes. You must finish drinking the solution by 9 PM. You may continue to drink clear liquids up to 2 hours before your exam. If you take aspirin, take it and ALL other prescribed medicines with a sip of water on the day of your colonoscopy. ======= Afternoon Appointment (After 12 noon) Single Dosing, Morning of Colonoscopy Start drinking the bowel preparation at 6 AM the day of your colonoscopy. Drink an 8 oz glass of bowel preparation every 10 minutes. You must finish drinking the solution by 9 AM. You may continue to drink clear liquids up to 2 hours before your exam. If you take aspirin, take it and ALL other prescribed medicines with a sip of water on the day of your colonoscopy. Contact Information If you are unable to keep your appointment or have any questions about the instructions, please call the facility where the procedure is being performed. Call between the hours of 8:00 AM and 5:00 PM. If you are calling after 5:00 PM, please call Nurse personal service workers at [phone]. COLONOSCOPY PROCEDURE OVERVIEW Please read prior to the procedure What is a Colonoscopy? A colonoscopy is an outpatient procedure in which the inside of the large intestine (colon and rectum) is examined. A colonoscopy is commonly used to evaluate gastrointestinal symptoms, such as rectal and intestinal bleeding, abdominal pain, or changes in bowel habits. Colonoscopies are also performed in individuals without symptoms to check for colorectal polyps or cancer. A screening colonoscopy is recommended for anyone 50 years of age and older, and for anyone with parents, siblings or children with a history of colorectal cancer or polyps. What happens before a colonoscopy? To have a successful colonoscopy, your bowel must be empty so that your physician can clearly view the colon. To do this, it is very important to read and follow all of the instructions given to you at least 2 weeks BEFORE your exam. If your bowel is not empty, your colonoscopy will not be successful and may have to be repeated. If you feel nauseated or vomit while taking the bowel preparation, wait 30 minutes before drinking more fluid and start with small sips of solution. Some activity (such as walking) or a few soda crackers may help decrease the nausea you are feeling. If the nausea persists, please contact nurse cable installation manager at [phone]. You may experience skin irritation around the anus due to the passage of liquid stools. To prevent and treat skin irritation, you should: Apply Vaseline or Desitin ointment to the skin around the anus before drinking the bowel preparation medications. These products can be purchased at any drug store. Wipe the skin after each bowel movement with disposable wet wipes instead of toilet paper. These are found in the toilet paper area of the store. Sit in a bathtub filled with warm water for 10 to 15 minutes after you finish passing a stool; after soaking, blot the skin dry with a soft cloth, apply Vaseline or Desitin ointment to the anal area, and place a cotton ball just outside your anus to absorb leaking fluid. What happens during a colonoscopy? During a colonoscopy, an experienced physician uses a colonoscope (a long, flexible instrument about 1/2 inch in diameter) to view the lining of the colon. The colonoscope is inserted into the rectum and advanced through the large intestine. If necessary during a colonoscopy, small amounts of tissue can be removed for analysis (a biopsy) and polyps can be identified and entirely removed. In many cases, a colonoscopy allows accurate diagnosis and treatment of colorectal problems without the need for a major operation. You are asked to wear a hospital gown and an IV will be started. You are given a pain reliever and a sedative intravenously (in your vein). You will feel relaxed and somewhat drowsy. You will lie on your left side, with your knees drawn up towards your chest. A small amount of air is used to expand the colon so the physician can see the colon camarena. You may feel mild cramping during the procedure. Cramping can be reduced by taking slow, deep breaths. The colonoscope is slowly withdrawn while the lining of your bowel is carefully examined. The procedure lasts from 30 minutes to 1 hour. What happens after a colonoscopy? You will stay in a recovery room for observation until you are ready for discharge. You may feel some cramping or a sensation of having gas, but this quickly passes. If sedation has been given, a responsible electric mule driver (a family member or friend) must drive you home. Avoid alcohol, driving, and operating machinery for 24 hours following the procedure. Unless otherwise instructed, you may immediately return to your normal diet. We recommend you wait until the day after your procedure to resume normal activities. If polyps were removed or a biopsy was taken, the physician performing your colonoscopy will tell you when it is safe to resume taking your blood thinners. If a biopsy was taken or a polyp was removed, you may notice a little amount of rectal bleeding for 1 to 2 days after the procedure. If you have a large amount of rectal bleeding, high or persistent fevers, or severe abdominal pain within the next 2 weeks, please go to your local emergency room and call the physician who performed your exam.Prescriptions ordered this encounter Disp Refills Start End PEG 3350-ELECTROLYTES 236 GRAM-22.74* 1 Lonnie* 0 04/12/2017 04/12/2017 Route: ORAL Sig: Take 4,000 mL by mouth one time only for 1 dose. Refer to printed prep instructions from your doctor. Status:Closed by JOSE BECKWITH MD on 04/12/17 [facility] 04-12-2017 HOSP Patient:Laz ReichN : Height:6' 0(1.829 m)Weight:231 lb 0.7 oz (104.8 kg)Outpatient Medications as of 05/01/17:Patient has no current outpatient medications.Admission/Clini c Administered Medications as of 05/01/17:lactated ringers infusionProblem List:No problem list on file for this patient.Allergies:No Known AllergiesDate Verified:05/01/17Lab ValuesNo results within the last 30 days for the following basenames: K,HCTProgress Notes ([facility]):Naun Nuñez Surg Coord 04/13/2017 12:05 PM SignedPatient is scheduled 05-01-2017 Naun Nuñez Surg CoordProgress Notes ([facility]):Jose Beckwith MD 04/12/2017 8:31 AM SignedCONSCIOUS SEDATIONHow to Prepare for Your Colonoscopy Using Golytely, Nulytely,Trilyte, or Colyte PreparationsIMPORTANT - Please Read These Instructions at Least 2 Weeks Before YourColonoscopyKey Instructions:Your bowel must be empty so that your doctor can clearly view your colon. Followall of the instructions in this handout EXACTLY as they are written.If you do NOT follow the directions for when to start drinking the bowelpreparation (see next page), your colonoscopy WILL be cancelled.? Do NOT eat any solid food the ENTIRE day before your colonoscopy.? Buy your bowel preparation at least 5 days before your colonoscopy.? Do NOT mix the solution until the day before your colonoscopy.Designated Life Skills Consultant on the Day of Your ExamA responsible family member or friend MUST come with you to your colonoscopy andREMAIN in the endoscopy area until you are discharged! You are NOT ALLOWED todrive, take a taxi or bus, or leave the Endoscopy Center ALONE.If you do not have a responsible electric mule driver (family member or friend) with you totake you home, your exam can not be done with sedation and will be cancelled.MedicationsSome of the medicines you take may need to be stopped or adjusted before yourcolonoscopy.You MUST call the doctor who ordered any of the following medicines at least 2weeks before your colonoscopy.? Blood Thinners -- such as Coumadin? (warfarin), Plavix ? (clopidogrel), Ticlid? (ticlopidine hydrochloride), Agrylin ? (anagrelide), Xarelto (rivaroxaban),Pradaxa (dabigatran), and Effient (Prasugrel).? Insulin or diabetes pills. Please call the doctor that monitors your glucoselevels. Your insulin dosage may need to be adjusted due to diet restrictionsrequired with this bowel preparation. (Please bring your diabetes medicationswith you on the day of your procedure.)If you take aspirin, continue it and ALL other medications prescribed by yourdoctor. On the day of your colonoscopy, take your medications with a sip ofwater.Five (5) Days Before Your ColonoscopyDo NOT take medications that stop diarrhea-- such as Imodium?, Kaopectate?, orPepto Bismol?.Do NOT take fiber supplements--such as Metamucil?, Citrucel?, or Perdiem?.Do NOT take products that contain iron--such as multi-vitamins--(the label listswhat is in the products).Do NOT take vitamin E.Buy the prescription bowel preparation at your local pharmacy or drugstore.Three (3) Days Before Your ColonoscopyDo NOT eat high-fiber foods--such as popcorn, beans, seeds (flax, sunflower,quinoa), multigrain bread, nuts, salad/vegetables, or fresh and dried fruit.One (1) Day Before Your ColonoscopyOnly drink clear liquids the ENTIRE DAY before your colonoscopy. Do NOT eat anysolid foods. Drink at least 8 ounces of clear liquids every hour after wakingup. The clear liquids you can drink include:? water, apple or white grape juice; broth; coffee or tea (without milk orcreamer); clear carbonated beverages such as gayla lucio or lemon-afognak soda;Gatorade? or other sports drinks (not red); Eric-Aid? or other flavored drinks(not red); plain jello or other gelatins (not red); popsicles (not red)? Do NOT drink alcohol on the day before or the day of the procedure.When to Mix and Drink Your Bowel PreparationFollow the instructions on the label. After mixing, place the solution in therefrigerator for a couple of hours before drinking. You may add the flavorpacket that came with the bowel preparation. DO NOT add ice, sugar or anyflavorings to the solution.There are two ways your doctor may dose the bowel preparation for yourcolonoscopy. Follow the dosing recommendations, split dosing or single dosing,as prescribed by your doctor.Split dosing cleans the bowel better and is easier to drink than single dosing.Split dosing means you drink half of the bowel preparation the evening beforethe colonoscopy and half of the bowel preparation the morning of thecolonoscopy. Single dosing means you drink all of the bowel preparation on asingle dayMorning Appointment (Before 12 noon)Split DosingStep 1:Start drinking the bowel preparation at 6 PM the evening before yourcolonoscopy. Drink an 8 oz glass of bowel preparation every 10 minutes for atotal of 8 glasses.You may continue to drink clear liquids until bedtime.Step 2:The day of the colonoscopy (4 hours before your exam). Drink an 8 oz glass ofbowel preparation every 10 minutes for a total of 8 glasses.You may continue to drink clear liquids up to 2 hours before your exam. If youtake aspirin, take it and ALL other prescribed medicines with a sip of water onthe day of your colonoscopy.ORSingle Dosing, Evening Before ColonoscopyStart drinking the bowel preparation at 6 PM the evening before yourcolonoscopy. Drink an 8 oz glass of bowel preparation every 10 minutes. You mustfinish drinking the solution by 9 PM.You may continue to drink clear liquids up to 2 hours before your exam. If youtake aspirin, take it and ALL other prescribed medicines with a sip of water onthe day of your colonoscopy. Afternoo n Appointment (After 12 noon)Single Dosing, Morning of ColonoscopyStart drinking the bowel preparation at 6 AM the day of your colonoscopy. Drinkan 8 oz glass of bowel preparation every 10 minutes. You must finish drinkingthe solution by 9 AM.You may continue to drink clear liquids up to 2 hours before your exam. If youtake aspirin, take it and ALL other prescribed medicines with a sip of water onthe day of your colonoscopy.Contact InformationIf you are unable to keep your appointment or have any questions about theinstructions, please call the facility where the procedure is being performed.Call between the hours of 8:00 AM and 5:00 PM. If you are calling after 5:00 PM,please call Nurse personal service workers at [phone].COLONOSCOPY PROCEDURE OVERVIEWPlease read prior to the procedureWhat is a Colonoscopy?A colonoscopy is an outpatient procedure in which the inside of the largeintestine (colon and rectum) is examined. A colonoscopy is commonly used toevaluate gastrointestinal symptoms, such as rectal and intestinal bleeding,abdominal pain, or changes in bowel habits. Colonoscopies are also performed inindividuals without symptoms to check for colorectal polyps or cancer. Ascreening colonoscopy is recommended for anyone 50 years of age and older, andfor anyone with parents, siblings or children with a history of colorectalcancer or polyps.What happens before a colonoscopy?To have a successful colonoscopy, your bowel must be empty so that yourphysician can clearly view the colon. To do this, it is very important to readand follow all of the instructions given to you at least 2 weeks BEFORE yourexam.If your bowel is not empty, your colonoscopy will not be successful and may haveto be repeated.If you feel nauseated or vomit while taking the bowel preparation, wait 30minutes before drinking more fluid and start with small sips of solution. Someactivity (such as walking) or a few soda crackers may help decrease the nauseayou are feeling. If the nausea persists, please contact nurse cable installation manager [phone].You may experience skin irritation around the anus due to the passage of liquidstools. To prevent and treat skin irritation, you should: Apply Vaseline orDesitin ointment to the skin around the anus before drinking the bowelpreparation medications. These products can be purchased at any drug store. Wipethe skin after each bowel movement with disposable wet wipes instead of toiletpaper. These are found in the toilet paper area of the store. Sit in a bathtubfilled with warm water for 10 to 15 minutes after you finish passing a stool;after soaking, blot the skin dry with a soft cloth, apply Vaseline or Desitinointment to the anal area, and place a cotton ball just outside your anus toabsorb leaking fluid.What happens during a colonoscopy?During a colonoscopy, an experienced physician uses a colonoscope (a long,flexible instrument about 1/2 inch in diameter) to view the lining of the colon.The colonoscope is inserted into the rectum and advanced through the largeintestine. If necessary during a colonoscopy, small amounts of tissue can beremoved for analysis (a biopsy) and polyps can be identified and entirelyremoved. In many cases, a colonoscopy allows accurate diagnosis and treatment ofcolorectal problems without the need for a major operation.You are asked to wear a hospital gown and an IV will be started.You are given a pain reliever and a sedative intravenously (in your vein). Youwill feel relaxed and somewhat drowsy. You will lie on your left side, with yourknees drawn up towards your chest. A small amount of air is used to expand thecolon so the physician can see the colon camarena. You may feel mild crampingduring the procedure. Cramping can be reduced by taking slow, deep breaths.The colonoscope is slowly withdrawn while the lining of your bowel is carefullyexamined.The procedure lasts from 30 minutes to 1 hour.What happens after a colonoscopy?You will stay in a recovery room for observation until you are ready fordischarge.You may feel some cramping or a sensation of having gas, but this quicklypasses.If sedation has been given, a responsible electric mule driver (a family member or friend)must drive you home.Avoid alcohol, driving, and operating machinery for 24 hours following theprocedure.Unless otherwise instructed, you may immediately return to your normal diet. Werecommend you wait until the day after your procedure to resume normalactivities.If polyps were removed or a biopsy was taken, the physician performing yourcolonoscopy will tell you when it is safe to resume taking your blood thinners.If a biopsy was taken or a polyp was removed, you may notice a little amount ofrectal bleeding for 1 to 2 days after the procedure. If you have a large amountof rectal bleeding, high or persistent fevers, or severe abdominal pain withinthe next 2 weeks, please go to your local emergency room and call the physicianwho performed your exam.Jose Bcekwith MD 04/12/2017 11:12 PM SignedHISTORY AND PHYSICALJerry Ray1975REFERRING PHYSICIAN: SelfCHIEF COMPLAINT: Consult (post egd for food bolus)HPI: The patient is a 42 year old male referred for endoscopy. Reggie notes nohistory of colon complaints.The patient notes the following upper complaints: Reggie denies abdominalpain.. Reggie notes heartburn. Reggie notes dysphagia. He notes a history ofdysphagia to most solid foods. If he does not chew his solid food verycarefully he will note dysphasia symptoms. He drinks large quantities ofliquids with meals to help his solid food pass. He has had previous issues withesophageal foreign bodies. [facility] with a chicken esophageal foreign body which I was involved toremove endoscopically. Reggie denies a history of ulcers/ peptic ulcer disease.Reggie has not undergone prior endoscopy. His father was diagnosed with coloncancer in his 40sPAST MEDICAL HISTORYDiagnosis Date- Foreign body in esophagusPAST SURGICAL HISTORYProcedure Laterality Date- APPENDECTOMY HX 90's- EGD W/REM FB STOMACH/DUOD 03/30/2017- ESOPHAGOSCP RIG TRNSO REM FB 08/30/13urrent Outpatient Prescriptions:peg 3350-Electrolytes (GOLYTELY) 236-22.74-6.74 -5.86 gram suspension Take 4,000mL by mouth one time only for 1 dose. [facility].No current facility-administered medications for this visit.ALLERGIES: Review of patient's allergies indicates no known allergies.PERSONAL HISTORY: Social History Marital status: Spouse name: Years of education: Number of children:Social History Main Topics Smoking status: Never Smoker Alcohol use: No Drug use: NoFAMILY HISTORY:FAMILY HISTORYProblem Relation Age of Onset- Colon Cancer Father late 40's- Alcohol/Drug Father- Coronary Artery Disease Mother- Prostate Cancer Maternal Uncle- Cancer Paternal Grandfather brain- Cancer Paternal Aunt unknown- Alcohol/Drug Sister- Alcohol/Drug BrotherREVIEW OF SYMPTOMS: The review of systems data was entered by the nurse and reviewed by Yue are no exam notes on file for this visit.PHYSICAL EXAMINATION:General: The patient is 42 year old male, well nourished, well hydrated in noacute distress. The patient is oriented to time, place, and person.VITALS: Blood pressure 142/98, pulse 90, height 182.9 cm (6'), weight 104.8 kg(231 lb). Body mass index is 31.33 kg/(m2).HEENT: Normal cephalic, ataumatic, pupils are equally round, sclera areanicteric, mucous membranes are moist, oropharynx is clear. Neck has no masses,asymmetry or lymphadenopathy. Thyroid is unremarkable.Respiratory: Clear to auscultation and percussion. Normal respiratoryexcursion and pattern.Cardiac: Examination is regular rate and rhythm.Abdominal exam: Soft, nontender, with no palpable masses. Nohepatosplenomegaly. No palpable hernias.Rectal exam: exam deferredExtremities: no clubbing, cyanosis or edema. No adenopathy.Other:LABORATORY VALUES: As NotedRADIOLOGIC STUDIES: As NotedAssessmentIMPRESSION: Family history of colon cancer, esophageal foreign body, dysphasiaPLAN: I plan to perform upper and lower endoscopy. We discussed the risks andbenefits of the planned endoscopy. I have informed the patient thatcomplications can occur including failure to complete the endoscopy andperforation. The patient had the opportunity to ask questions concerning theplanned endoscopy. My staff has also explained the procedure to the patient inunderstandable terms and has given the patient printed material concerning theprocedure. The patient freely consents to surgery.I plan to use golytely bowel preparation for endoscopyDiagnoses: (T18.108A) Esophageal foreign body, initial encounter (primaryencounter diagnosis)(R13.10) Dysphagia, unspecified type(Z80.0) Family history of colon cancerReturn to Clinic: The patient is instructed to follow-up with me after thetesting has been completed. Jose Beckwith MD [facility] PROGRESSon 04-07-2017 PROGRESS HNO ID: [id number] thor: Jose Ceronervice: (none)Author Type: PhysicianType: Progress NotesFiled: 04/08/2017 12:01 PMNote Text:OPERATIVE NOTATION FOR [facility] SURGICAL PROCEDURE.March 30, 2017Jerry Damir 1975 [id number] malePROCEDURE: EGD WITH REMOVAL OF FOREIGN BODY - 72777-VBUDOXK: Stacie Beckwith M.D. FACS OIL BURNER TECHNICIAN: NoneDEPT: SHELBY PROVIDER: [id number] Beckwith MD POS: [id number]: (T18.108A) Esophageal foreign body, initial encounter (primaryencounter diagnosis)ASA CLASS: 2E - mild emergencyFINDINGS:COMPLICAT IONS: NonePMHx -PAST MEDICAL HISTORYDiagnosis Date- Foreign body in esophagusCOMORBIDITIES - NonePost Op Occurrences - NoneWound Classification - Clean ContaminatedOperative note dictated in the [facility] dictationsystem.Joes Beckwith MD [facility] CNOPon 03-30-2017 CNOP Operative Note (Enc) ([facility]) -------Progress Notes:Jose Beckwith MD 04/08/2017 12:01 PM SignedOPERATIVE NOTATION FOR [facility] SURGICAL PROCEDURE.March 30, 2017Jerry Ray 1975 [id number] malePROCEDURE: EGD WITH REMOVAL OF FOREIGN BODY - 27913-OLMOHLF: Stacie Beckwith M.D. FACS OIL BURNER TECHNICIAN: NoneDEPT: SHELBY PROVIDER: [id number] Beckwith MD POS:[id number] : (T18.108A) Esophageal foreign body, initial encounter (primaryencounter diagnosis)ASA CLASS: 2E - mild emergencyFINDINGS:COMPLICAT IONS: NonePMHx -PAST MEDICAL HISTORYDiagnosis Date- Foreign body in esophagusCOMORBIDITIES - NonePost Op Occurrences - NoneWound Classification - Clean ContaminatedOperative note dictated in the [facility] dictation system.Jose Beckwith MDEncounter Status:Closed by JOSE BECKWITH MD on 04/08/17Encounter Number: [id number] [facility] Vital Signs Date Time Vital Sign Value Performing Clinician Bobbyi daniel 03-14-2023 08:05-0400 Body height 182.[address] Deann Braun Work Phone: [facility] 03-14-2023 08:05-0400 Body mass index (BMI) [Ratio] 34.7 kg/m2 Dr. Deann Braun Work Phone: [facility] 03-14-2023 08:05-0400 Body temperature 98.3 [degF] Dr. Deann Braun Work Phone: [facility] 03-14-2023 08:05-0400 Body weight 116.[address] Deann Braun Work Phone: [facility] 03-14-2023 08:05-0400 Diastolic blood pressure 92 mm[Hg] Dr. Deann Braun Work Phone: [facility] 03-14-2023 08:05-0400 Heart rate 86 /min Dr. Deann Braun Work Phone: [facility] 03-14-2023 08:05-0400 Respiratory rate 16 /min Dr. Deann Braun Work Phone: [facility] 03-14-2023 08:05-0400 SaO2% (BldA) [Mass fraction] 96 % Dr. Deann Braun Work Phone: [facility] 03-14-2023 08:05-0400 Systolic blood pressure 147 mm[Hg] Dr. Deann Braun Work Phone: [facility] Encounters Encounter Date Encounter Type Care Provider Facility Start: 12-18-2023 End: 12-18-2023 Patient encounter procedure [facility] Work Phone: Start: 12-18-2023 End: 12-18-2023 ambulatory [facility] Work Phone: Start: 06-14-2023 End: 06-14-2023 ambulatory Deann Braun Facility:[facility] Start: 03-14-2023 End: 03-14-[address] Deann Braun Work Phone: [facility] Work Phone: Start: 03-14-2023 End: 03-14-[address] Deann Braun Work Phone: [facility] Work Phone: Start: 03-14-2023 End: 03-14-[address] Deann Braun Work Phone: [facility] Work Phone: Start: 05-10-2017 End: 05-10-2017 Ambulatory [facility] Start: 05-01-2017 End: 05-01-2017 Ambulatory JOSE BECKWITH [facility] Start: 04-12-2017 End: 04-13-2017 Ambulatory JOSE Raymundo BRYANTAMENA [facility] Plan of Treatment Date Care Activity Detail Author Start: 03-14-2023 Evaluation of diagno stic study results [facility] Polysomnography [facility] Immunizations Immunization Date Immunization Notes Care Provider Fa cility 08-29-2021 influenza, injectabl e, quadrivalent, preservative free [facility] 08-29-2021 influenza, seasonal, injectable Dr. Deann Braun Work Phone: [facility] 05-01-2021 tetanus toxoid, redu charity diphtheria toxoid, and acellular pertussis vaccine, adsorbed Dr. Deann Braun Work Phone: [facility] Payers Date Payer Category Payer Self-pay [id number] 2023 Unknown [id number] Unknown [id number] Unknown [id number] Unknown [id number] [id number] Unknown [id number] Social History Date Type Detail Facility Start: 03-14-2023 Tobacco smoking stat [facility] Unknown if ever smoked [facility] Start: 1975 Sex Assigned At Male W [facility] Evaluation note Note Date & Type Note Facility Evaluation note Diagnosis Onset Date Dyspnea on exertion acute Elevated LFTs acute Elevated PSA acute Insulin resistance acute Obesity (BMI 30.0-34.9) acut e Sleep apnea acute URI (upper respiratory infection) acute Weight gain acute [facility] Work Phone: Evaluation note Note Date & Type Note Facility Evaluation note No assessment information availa ble [facility] Work Phone: Summary Purpose Family History No Family History Records Found Relationship Condition Age at Onset Recorded Date/T noris Not Specified Malignant neoplasm Unknown father Malignant neoplasm of colon Unknown Alcoholism Unknown mother Depression Unknown Myocardial infarction Unknown Cardiac disease Unknown Hypertension Unknown Hyperlipidemia Unknown grandfather Myocardial infarction Unknown Advance Directives No Advanced Directives Records Found Advance Directive Response Recorded Date/ Time Living Will No August 23 12:45am Power of Telephone Instrument Supervisor No August 23 022 12:45am Chief Complaint and Reason for Visit Chief Complaint Swelling in Hands, F eet Reason for Visit Dyspnea on exertion Elevated LFTs Elevated PSA Insulin resistance Obesity (BMI 30.0-34.9) Sleep apnea URI (upper respiratory infection) Weight gain Chief Complaint PSA Additional Source Comments (unrecognized sect ion and content) No Status Records FoundNo Status Records Found INFORMATION SOURCE (unrecogn ized section and content) DATE CREATED AUTHOR 02/13/2018 [facility] DATE CREATED AUTHOR AUTHOR'S ORGANIZ ATION 12/30/2023 [facility] Care Teams (unrecognized sec tion and content) Team Status: Active Member Role Status Dates No Primary Care Physician Family Provider Active Dr. Deann Braun MD Primary Care Provider Active Team Status: Inactive Member Role Status Dates Dr. Deann Braun MD Primary Care Provider, Attendi ng Provider Active Team Status: Inactive Member Role Status Dates Dr. Deann Braun MD Primary Care Pro vider, Attending Provider, Referring Provider Active Team Status: Inactive Member Role Status Dates Dr. Deann Braun MD Primary Care Provider Active Dr. Marlon Hoover MD Attending Provider, Referr ing Provider Active Goals (unrecognized section and content) Goals may be documented in a n alternate sectionGoals may be documented in an alternate section FOR RECORDS PERTAINING TO PATIENTS WHO ARE OR HAVE BEEN ENROLLED IN A CHEMICAL DEPENDENCY/SUBSTANCEABUSE PROGRAM, SOME INFORMATION MAY BE OMITTED. This clinical summary was aggregated from multiple sources. Caution should be exercised in using it in the provision of clinical care. This summary normalizes information from multiple sources, and as a consequence, information in this document may materially change the coding, format and clinical context of patient data. In addition, data may be omitted in some cases. CLINICAL DECISIONS SHOULD BE BASED ON THE PRIMARY CLINICAL RECORDS. [facility]. provides no warranty or guarantee of the accuracy or completeness of information in this document.
[2025-08-12 20:35] LABS: Mucous, Urine 0 SEEN /hpf (<or=2+)
--- NOTE | 2025-08-12 20:35 | EDS_ITS ---
HPI History of Present Illness Chief Complaint: Complaint Narrative Narrative: Chief complaint and HPI: 50-year-old male with past medical history of BPH and HTN presents for evaluation of urinary retention. Patient states he had urinary retention once in the past which it was secondary to his prostate. States he was placed on a medication and never had any issues. He no longer takes that medication. Patient states that he was recently started on tadalafil for erectile dysfunction. States today he began having urinary retention. States it hurts to pee. Denies any concerns for STIs. Denies any penile discharge. Denies any testicular pain. Denies any fever, chills, nausea, vomiting, abdominal pain. Review of systems: See HPI Medications: As listed on the chart Allergies: As listed on the chart PFSH: Per chart Vital signs: As listed on the chart. Reviewed. Physical exam: Gen: A&O x3, NAD Head: Normocephalic, atraumatic Eyes: No sclera icterus, conjunctiva clear ENT: Moist mucous membranes CV: RRR, no murmurs, no peripheral edema Resp: Lungs CTA BL, no w/r/c GI: Abd soft, non-distended, non-tender, no r/r/g : Circumcised penis. No penile tenderness or discharge. No penile or testicular swelling. Normal lie and position of the testicles. No testicular tenderness, masses, or skin changes. No rashes. Musc: Full ROM, no deformity Skin: Warm, dry Psych: Cooperative, appropriate mood and affect [facility] Medical History GERD (gastroesophageal reflux disease) Home Medications ?Medication ?Instructions ?Recorded ?Last Taken ?Type Omeprazole [Prilosec] 40 mg PO DAILY 05/09/17 Unkn own History aspirin 81 mg tablet,delayed 81 mg PO DAILY 03/14/23 U nknown History release azithromycin 250 mg tablet See Rx Instructions PO .COM PLEX #6 03/14/23 Unknown Rx (Zithromax) tabs guaifenesin 600 mg tablet, 600 mg PO BID PRN Cough #20 tabs 03/14/23 Unknown Rx extended release 12 hr lisinopril 10 1 tab PO DAILY #90 tabs 08/20 04/12 Unknown Rx mg-hydrochlorothiazide 12.5 mg tablet Allergy/AdvReac Type Severity Reaction Status Date / Time No Known Allergies Allergy Verified 08/12/25 19:58 Family History Father Colon cancer Alcoholism Mother Depression Myocardial infarction Heart disease Hypertension Hyperlipemia Grandfather Myocardial infarction Other Cancer Surgical History History of appendectomy Social History Smoking Status: Never smoker alcohol intake: never substance use type: does not use what type of physical activity do you participate in: none EXAM Physical Exam Const Vital Signs: 08/12/25 19:54 Temperature 97.6 F L Temperature Source Temporal Pulse Rate 90 Respiratory Rate 14 Blood Pressure 141/93 H Blood Pressure Mean 109 Pulse Ox 98 Oxygen Delivery Method Room Air MDM MDM MDM Narrative Medical decision making narrative: 50-year-old male with past medical history of BPH and HTN presents for reji luation of urinary retention. Patient states he had urinary retention once in the past which it was secondary to his prostate. States he was placed on a medication and never had any issues. He no longer takes that medication. States today he began having urinary retention. States it hurts to pee. Denies any concerns for STIs. Denies any penile discharge. Denies any testicular pain. Denies any fever, chills, nausea, vomiting, abdominal pain. On presentation, patient no acute distress. Physical exam unremarkable. Differential diagnosis includes but is not limited to urinary retention, BPH, urolithiasis, UTI, hematuria. Will obtain basic labs with CT abdomen pelvis to assess for stone or other pathology as a cause for urinary retention. Bedside bladder scan greater than 600 cc. Lora catheter will be placed. CBC unremarkable. BMP unremarkable. UA negative for UTI or blood. CT abdomen pelvis shows enlarged prostate. Severely distended urinary bladder, which may reflect urinary retention from bladder outlet obstruction. No wall thickening or inflammatory changes. Small subsegmental nonobstructive renal stone. No hydronephrosis. Patient had a Lora catheter placed. He is draining clear urine. Patient's urinary retention is from BPH. Recommend following up with urologist. He will discharge home with the Lora catheter. He confirmed understand the plan. Patient will discharge home. Impression: 1. Urinary retention 2. BPH Lab Data Labs: Laboratory Results - last 24 hr 08/12/25 08/12/25 20:25 20:30 WBC 9.2 RBC 5.51 Hgb 16.0 Hct 48.0 MCV 87.1 MCH 29.0 MCHC 33.3 RDW Std Deviation 39.7 RDW Coeff of Viri 12.4 Plt Count 197 MPV 10.8 Immature Gran % (Auto) 0.300 Neut % (Auto) 81.9 H Lymph % (Auto) 9.[address] [place] % (Auto) 6.7 Eos % (Auto) 0.9 Baso % (Auto) 0.3 Absolute Neuts (auto) 7.6 Absolute Lymphs (auto) 0.91 Nucleated RBC % 0 Sodium 139 Potassium 4.0 Chloride 104 Carbon Dioxide 26.1 Anion Gap 9 BUN 12 Creatinine 0.95 Estim Creat Clear Calc 118.56 Est GFR (MDRD) Non-Af 98 BUN/Creatinine Ratio 12.5 Glucose 101 H Calcium 9.2 Urine Color Straw Urine Clarity Clear Urine pH 7.0 Ur Specific [place] 1.005 Urine Protein Negative Urine Glucose (UA) Normal Urine Ketones Negative Urine Occult Blood Negative Urine Nitrite Negative Urine Bilirubin Negative Urine Urobilinogen Normal Ur Leukocyte Esterase Negative Urine RBC 0-5 SEEN Urine WBC 0-5 SEEN Ur Squamous Epith Cells 0-5 SEEN Urine Bacteria 0 SEEN Urine Mucus 0 SEEN Radiography Diagnostic Testing: Clinical Impression(s) from Imaging Studies Abdomen/Pelvis CT 08/12/25 20:21 IMPRESSION: Enlarged prostate. Smoothly distended urinary bladder, which may reflect urinary retention from bladder outlet obstruction. No wall thickening or active inflammatory changes. Small subcentimeter nonobstructive left renal stone. No hydronephrosis. Reading Location: [id number] Discharge Plan Triage Chief Complaint: Complaint ED Provider: Jaya Chavez Dx/Rx/DC Orders Prescriptions: No Action aspirin 81 mg tablet,delayed release (DR/EC) 81 mg PO DAILY azithromycin [Zithromax] 250 mg tablet See Rx Instructions PO .COMPLEX Qty: 6 0RF Rx Instructions: For 250 mg dose pack: take 500 mg today (day 1), then 250 mg for 4 days (days 2-5) PO guaifenesin 600 mg tablet extended release 12hr 600 mg PO BID PRN (Reason: Cough) Qty: 20 1RF Omeprazole [Prilosec] 40 MG capsule 40 mg PO DAILY lisinopril-hydrochlorothiazide 10-12.5 mg tablet 1 tab PO DAILY Qty: 90 3RF Primary Care Provider: Deann Braun Referrals: Deann Braun MD [Primary Care Provider, Internal Medicine - [facility]] Print Language: Estonian
[2025-08-12 20:41] LABS: Color, Urine Straw (Yellow); Glucose, Dipstick Normal (Normal); Ketone-Dipstick Negative (Negative); Leukocyte Esterase-Dipstick Negative /ul (Negative); Nitrite-Dipstick Negative (Negative); Occult Blood-Urine Negative /ul (Negative); Protein-Dipstick Negative (Negative); Specific Gravity, Urine 1.005 (1.002-1.030); Urine Bilirubin Dipstick Negative (Negative)
[2025-08-12 20:41] LABS: Hematocrit 48.0 % (40-54); Hemoglobin 16.0 g/dL (13.0-16.5); Immature Granulocytes Count 0.030 X10^3/uL (0.0-0.0); Mean Corp Hgb Conc 33.3 g/dL (32-36); Mean Corpuscular Volume 87.1 fL (80-94); Mean Platelet Vol. 10.8 fl (6.2-12.0); NRBC Flagged by Analyzer 0 % (0-5); Platelet Count 197 K/mm3 (150-450); RBC Distribution Width CV 12.4 % (11.6-14.6); RBC Distribution Width SD 39.7 fl (35.1-43.9); Red Blood Count 5.51 M/mm3 (4.6-6.2); White Blood Count 9.2 K/mm3 (4.4-11.0)
[2025-08-12 20:59] LABS: Anion Gap 9 (7-18); BUN 12 mg/dL (4-19); BUN/Creat Ratio 12.5 RATIO (10-20); Calcium,Total 9.2 mg/dL (7.6-11.0); Carbon Dioxide 26.1 mmol/L (20.0-29.0); Chloride 104 mmol/L (96-106); Estimated Creatinine Clearance 118.56 ml/min (50-250); Glucose 101 mg/dL (70-99); Potassium 4.0 mmol/L (3.5-5.1)
[2025-08-12 21:20] LABS: Red Blood Cells-Urine 0-5 SEEN /hpf (0-5); Squamous Epithelial Cells - UA 0-5 SEEN /hpf (0-5)
[2025-08-12 22:13] VITALS: BP 140/93; PULSE 76; RESP 18; TEMP 36.7; O2SAT 96
== END 2025-08-12 22:19 | disposition home or self-care (01) ==
PROVIDERS: Emergency Provider Surgery; PCP Internal Medicine; Visit Provider Surgery
DX: N40.1 Benign prostatic hyperplasia with lower urinary tract symptoms (principal); R33.8 Other retention of urine; I10 Essential (primary) hypertension; Z79.899 Other long term (current) drug therapy
CPT/HCPCS: 74176; 80048; 81001; 85025; 99283

== ENCOUNTER 2025-08-16 17:30 | Emergency (ER) | payer OTHER, SELFPAY ==
[2025-08-16 17:30] VITALS: BP 156/98; PULSE 94; RESP 12; TEMP 36.9; O2SAT 100; BMI 32.4
--- NOTE | 2025-08-16 17:44 | EX.ED.DYSGE1 ---
HPI History of Present Illness Chief Complaint: Complaint Informant: patient Onset/Context/Timing Onset: Days Context: Gradual Onset Timing: Continuous Quality: Discomfort Location: Urethra Worsened by: Nothing Relieved by: Nothing Narrative Narrative: Patient presents with discomfort from his Lora catheter. Patient was seen here 4 days ago and had a Lora catheter placed at that time. Patient states that he is having urinary retention due to his BPH. Patient states that he had over 600 mL of urine in his bladder. Patient states that he was discharged home with a Lora catheter. Patient states that it has been causing some discomfort that has been getting worse over the past few days. Patient states that there were times where it was leaking around his catheter. Patient states he would feel better if it was just removed. Patient denies any dysuria or hematuria. PFSH PFS Medical History Non-smoker GERD (gastroesophageal reflux disease) Home Medications ?Medication ?Instructions ?Recorded ?Last Taken ?Type Omeprazole [Prilosec] 40 mg PO DAILY 05/09/17 Unknown History aspirin 81 mg tablet,delayed 81 mg PO DAILY 03/14/23 Unknown History release azithromycin 250 mg tablet See Rx Instructions PO .COMPLEX #6 03/14/23 Unknown Rx (Zithromax) tabs guaifenesin 600 mg tablet, 600 mg PO BID PRN Cough #20 tabs 03/14/23 Unknown Rx extended release 12 hr lisinopril 10 1 tab PO DAILY #90 tabs 09/06/23 Unknown Rx mg-hydrochlorothiazide 12.5 mg tablet Allergy/AdvReac Type Severity Reaction Status Date / Time No Known Allergies Allergy Verified 08/16/25 17:30 Family History Father Colon cancer Alcoholism Mother Depression Myocardial infarction Heart disease Hypertension Hyperlipemia Grandfather Myocardial infarction Other Cancer Surgical History History of appendectomy Social History Smoking Status: Never smoker alcohol intake: never substance use type: does not use what type of physical activity do you participate in: none ROS ROS ED Constitutional Constitutional ED: Denies chills or fever(s) Eyes Eyes: Denies blurry vision or change in vision ENT ENT ED: Denies rhinorrhea or sore throat Cardiovascular Cardiovascular: Denies chest pain or palpitations Respiratory/Chest Respiratory/Chest: Denies cough or dyspnea Gastrointestinal Gastrointestinal: Denies nausea or vomiting Genitourinary Genitourinary ED: Denies dysuria or hematuria Musculoskeletal Musculoskeletal: Denies back pain or neck pain Integumentary Denies abscess or rash Neurologic Neurologic: Denies headache(s) or weakness Allergic/Immunologic Allergic/Immunologic ED: Denies mouth swelling or urticaria EXAM Physical Exam Const Vital Signs: 08/16/25 17:30 Temperature 98.5 F Temperature Source Oral Pulse Rate 94 Respiratory Rate 12 Blood Pressure 156/98 H Blood Pressure Mean 117 Pulse Ox 100 Oxygen Delivery Method Room Air Positive well nourished and well developed Constitutional Narrative: BMI is 32.4. General Appearance ED: well developed and NAD HEENT Reports moist mucous membranes Neck supple and no JVD GI non-tender and non-distended Palpation: soft Neuro oriented x3, CN's II-XII intact bilaterally and no sensory deficits noted Sensorium / Orientation: alert Motor Exam: strength 5/5 throughout Psych mental status grossly normal MDM MDM MDM Narrative Medical decision making narrative: Lora catheter will be removed. Patient will be observed in the emergency department until he can urinate on his own. Patient will be instructed to follow-up with urology as previously instructed. Patient was instructed to return if worse in any way. Patient understood and was agreeable with plan. All questions were answered. Discharge Plan Triage Chief Complaint: Complaint ED Provider: Didier Kothari Dx/Rx/DC Orders Clinical Impression: Encounter for Lora catheter removal, BPH (benign prostatic hyperplasia) Instructions: ED BPH (Enlarged Prostate) Prescriptions: No Action aspirin 81 mg tablet,delayed release (DR/EC) 81 mg PO DAILY azithromycin [Zithromax] 250 mg tablet See Rx Instructions PO .COMPLEX Qty: 6 0RF Rx Instructions: For 250 mg dose pack: take 500 mg today (day 1), then 250 mg for 4 days (days 2-5) PO guaifenesin 600 mg tablet extended release 12hr 600 mg PO BID PRN (Reason: Cough) Qty: 20 1RF Omeprazole [Prilosec] 40 MG capsule 40 mg PO DAILY lisinopril-hydrochlorothiazide 10-12.5 mg tablet 1 tab PO DAILY Qty: 90 3RF Primary Care Provider: Deann Braun Referrals: Marlon Hoover MD [Med Staff - Active Staff, Urology] - Keep Mateo appointment Deann Braun MD [Primary Care Provider, Internal Medicine - [facility]] - 5-7 Days Print Language: Estonian Disposition Disposition: Home, Self Care
--- OUTSIDE RECORDS SUMMARY | 2025-08-16 17:56 | XMS RPT_ITS | CCD ---
Author Organization [facility] Care Team Providers Care Denture Model Maker Name Role Phone GARRETT HOOD (IRVING) Unavailable [...] take 1 tablet by mouth once daily Lisinopril-[place] chlorothiazide Active 1 TABLET PO DAILY September [...] 12-20-2023 PSA, FREE 1.01 ng/mL Normal N/A [facility] Comment on above: Result Comment: Reymundo BARTON methodology. Performed By: #### L 501.9940, L501.95674, L501.9520, L506.0400, L501.5200, L501.9985, L100.0100, [id number], L506.1000, L503.6620, L500.4050, L500.4100 #### [facility] Laboratory [address] [place], [address] PSA, FREE % 13.5 Normal . [facility] Comment on above: Result Comment: The table [...] other population of men. Performed at: - [address] [id number] Receptionist Scheduler: Hermes Moran PhD, Phone: [phone] Performed By: #### L 501.9940, L501.86927, L501.9520, L506.0400, L501.5200, L501.9985, L100.0100, [id number], L506.1000, L503.6620, L500.4050, L500.4100 #### [facility] Laboratory [address] [place], [place], [address] PSA, TOTAL ULTR 7.460 ng/mL Abnormal 0.000-4.000 [facility] Comment on above: Result Comment: Roch christa ECLIA methodology. According to the [place] [employer], Serum PSA should decrease and [...] malignant disease. Performed By: #### L 501.9940, L501.47809, L501.9520, L506.0400, L501.5200, L501.9985, L100.0100, [id number], L506.1000, L503.6620, L500.4050, L500.4100 #### [facility] [address] [place], [address] No Panel InformationOrdered By: Marlon Hoover on 12-18-2023 Percent Free Prostate Specific Ag 1.01 ng/mL N/A [facility] Comment on above: Alexis ECLIA methodol ogy. Prostate Specific Ag, Ultra-Sensitv 7.460 ng/mL 0.000-4.000 [facility] Comment on above: Alexis ECLIA methodol ogy.According to the [place] [employer], Serum PSAshould decrease and remain [...] PSA/Total PSA [Mass fraction] 13.5 % . [facility] Comment on above: The table below list [...] any other population of men.Performed at: - [facility] [id number] Director: Hermes Moran PhD, Phone: [phone] CREATININE FINGERSTICKon Creatinine [Mass/Vol] 1.1 mg/dL Normal 0.70-1.30 [facility] Comment on above: Performed By: #### L 501.9940, L501.34767, L501.9520, L506.0400, L501.5200, L501.9985, L100.0100, [id number], L506.1000, L503.6620, L500.4050, L500.4100 #### [facility] [address] [facility] [place], [address] EGFR WB > 60.0000 Normal >60 [facility] Comment on above: Performed By: #### L 501.9940, L501.51209, L501.9520, L506.0400, L501.5200, L501.9985, L100.0100, [id number], L506.1000, L503.6620, L500.4050, L500.4100 #### [facility] [address] [facility] [place], [address] Pelvis W/WO Contraston 06-14 Pelvis W/WO Contrast [facility] Imaging Services [address] [place] [address] Pelvis W/WO Contrast MR#: [id number] Acct: [id number] Name: REGGIE REICH Rep #: [id number] : 1975 M 48 From: Zak Gunderson MD PCP: Dr. Deann Braun MD Status: REG CLI Study: Pelvis W/WO Contrast Date of Exam: 06/14/23 Exam# [id number] Ordering Dr: Marlon Hoover MD [id number] STUDY: MR PELVIS WITH AND WITHOUT CONTRAST [...] 8:08 EDT Reading Location ID and State: [address] [place] [address] , Service support , CC: Dr. Marlon Hoover MD; Dr. Deann Braun MD Application Tester: Signed Normal [facility] Absolute lymphocyte countOrd ered By: Deann Braun on 03-14-2023 Lymphocytes Auto (Unsp spec) [#/Vol] 1.03 10*3/uL 0.83-4.51 [facility] BNP,B-Type NATRIURETIC PEPTI Risa 03-14-2023 Natriuretic peptide B (Bld) [Mass/Vol] 7.9 pg/mL Normal 0-100 [facility] Comment on above: Performed By: #### L 501.9940, L501.90008, L501.9520, L506.0400, L501.5200, L501.9985, L100.0100, [id number], L506.1000, L503.6620, L500.4050, L500.4100 #### [facility] [address] [place], [address] Basophil percentageOrdered B y: Deann Barun on 03-14-2023 Basophils/100 WBC (Bld) 0.6 % 0-1 [facility] Bilirubin [Mass/Vol] 0.20 mg/dL 0.20-1.00 [facility] Comment on above: For patients on eltr ombopag therapy, use of Dimension [place] TBIL is not recommended. Chloride [Moles/Vol] 112 mmol/L 98-107 [facility] Cholesterol [Mass/Vol] 178 mg/dL <200 [facility] Comment on above: <200 mg/dL Desirable 200-240 mg/dL Borderline >240 mg/dL High Risk Eosinophils/100 WBC (Bld) 1.5 % 0-5 [facility] Glucose [Mass/Vol] 86 mg/dL 74-106 [facility] Neutrophils (Bld) [#/Vol] 9.5 10*3/uL 2.0-7.7 [facility] Neutrophils/100 WBC (Bld) 82.3 % 47-70 [facility] Potassium [Moles/Vol] 4.0 mmol/L 3.5-5.1 [facility] Protein [Mass/Vol] 7.0 g/dL 6.4-8.2 [facility] Sodium [Moles/Vol] 141 mmol/L 136-145 [facility] Triglyceride [Mass/Vol] 72 mg/dL <199 [facility] Comment on above: The drugs N-Acetylcy steine and Metamizole may falsely depress this assay.Serum Triglycerides Reference Interval Normal <150 mg/dL Borderline high 150 - 199 mg/dL High 200 - 499 mg/dL Very High > or = 500 mg/dL WBC (Bld) [#/Vol] 11.5 10*3/uL 4.4-11.0 [facility] Blood erythrocytes count (nu mber/volume)Ordered By: Deann Braun on 03-14-2023 RBC (Bld) [#/Vol] 5.12 10*6/uL 4.6-6.2 [facility] Blood hemoglobin measurement (mass/volume)Ordered By: Deann Braun on 03-14-2023 Hemoglobin (Bld) [Mass/Vol] 14.6 g/dL 13.0-16.5 [facility] Blood lymphocytes/100 leukoc ytesOrdered By: Deann Braun on 03-14-2023 Lymphocytes/100 WBC (Bld) 8.9 % 19-41 [facility] Blood monocytes/100 leukocyt esOrdered By: Deann Braun on 03-14-2023 Monocytes/100 WBC (Bld) 6.2 % 0-10 [facility] Blood platelet mean volumeOr dered By: Deann Braun on 03-14-2023 Platelet mean volume (Bld) [Entitic vol] 11.1 fL 6.2-12.0 [facility] CBC W/Diff, Automatedon 02-18 Absolute Lymph 1.03 X10 3/uL Normal 0.83-4.51 [facility] Comment on above: Performed By: #### L 501.9940, L501.55474, L501.9520, L506.0400, L501.5200, L501.9985, L100.0100, [id number], L506.1000, L503.6620, L500.4050, L500.4100 #### [facility] Laboratory [address] [place], [address] Absolute Neut 9.5 X10 3/uL High 2.0-7.7 [facility] Comment on above: Performed By: #### L 501.9940, L501.86581, L501.9520, L506.0400, L501.5200, L501.9985, L100.0100, [id number], L506.1000, L503.6620, L500.4050, L500.4100 #### [facility] [address] [place], [address] Basophils/100 WBC (Bld) 0.6 % Normal 0-1 [facility] Comment on above: Performed By: #### L 501.9940, L501.92578, L501.9520, L506.0400, L501.5200, L501.9985, L100.0100, [id number], L506.1000, L503.6620, L500.4050, L500.4100 #### [facility] [address] [place], [address] Eosinophils/100 WBC (Bld) 1.5 % Normal 0-5 [facility] Comment on above: Performed By: #### L 501.9940, L501.81952, L501.9520, L506.0400, L501.5200, L501.9985, L100.0100, [id number], L506.1000, L503.6620, L500.4050, L500.4100 #### [facility] [address] [place], [place], [phone] (097) Erythrocyte distribution width (RBC) [Ratio] 12.8 % Normal 11.6-14.6 [facility] Comment on above: Performed By: #### L 501.9940, L501.41893, L501.9520, L506.0400, L501.5200, L501.9985, L100.0100, [id number], L506.1000, L503.6620, L500.4050, L500.4100 #### [facility] Laboratory [facility] [place], [address] Hematocrit (Bld) [Volume fraction] 45.0 % Normal 40-54 [facility] Comment on above: Performed By: #### L 501.9940, L501.30148, L501.9520, L506.0400, L501.5200, L501.9985, L100.0100, [id number], L506.1000, L503.6620, L500.4050, L500.4100 #### [facility] [address] [place], [place], [id number] (896) Hemoglobin (Bld) [Mass/Vol] 14.6 g/dL Normal 13.0-16.5 [facility] Comment on above: Performed By: #### L 501.9940, L501.74836, L501.9520, L506.0400, L501.5200, L501.9985, L100.0100, [id number], L506.1000, L503.6620, L500.4050, L500.4100 #### [facility] [address] [place], [place], [phone] (087) IG% 0.500 Normal 0.0-0.9 [facility] Comment on above: Result Comment: IG% - Immature Granulocytes (promyelocytes, myelocytes and metamyelocytes) > 1% indicates that a LEFT SHIFT is Present. Performed By: #### L 501.9940, L501.14792, L501.9520, L506.0400, L501.5200, L501.9985, L100.0100, [id number], L506.1000, L503.6620, L500.4050, L500.4100 #### [facility] [address] [place], [address] (431) Lymphocytes/100 WBC (Bld) 8.9 % Low 19-41 [facility] Comment on above: Performed By: #### L 501.9940, L501.51247, L501.9520, L506.0400, L501.5200, L501.9985, L100.0100, [id number], L506.1000, L503.6620, L500.4050, L500.4100 #### [facility] [address] [place], [address] ( MCH (RBC) [Entitic mass] 28.5 pg Normal 27.0-32.0 [facility] Comment on above: Performed By: #### L 501.9940, L501.60368, L501.9520, L506.0400, L501.5200, L501.9985, L100.0100, [id number], L506.1000, L503.6620, L500.4050, L500.4100 #### [facility] [address] [place], [address] ( MCHC (RBC) [Mass/Vol] 32.4 g/dL Normal 32-36 [facility] Comment on above: Performed By: #### L 501.9940, L501.09191, L501.9520, L506.0400, L501.5200, L501.9985, L100.0100, [id number], L506.1000, L503.6620, L500.4050, L500.4100 #### [facility] [address] [place], [address] MCV (RBC) [Entitic vol] 87.9 fL Normal 80-94 [facility] Comment on above: Performed By: #### L 501.9940, L501.40379, L501.9520, L506.0400, L501.5200, L501.9985, L100.0100, [id number], L506.1000, L503.6620, L500.4050, L500.4100 #### [facility] [address] [facility] [place], [address] Monocytes/100 WBC (Bld) 6.2 % Normal 0-10 [facility] Comment on above: Performed By: #### L 501.9940, L501.96525, L501.9520, L506.0400, L501.5200, L501.9985, L100.0100, [id number], L506.1000, L503.6620, L500.4050, L500.4100 #### [facility] [address] [place], [address] Neutrophils/100 WBC (Bld) 82.3 % High 47-70 [facility] Comment on above: Performed By: #### L 501.9940, L501.66070, L501.9520, L506.0400, L501.5200, L501.9985, L100.0100, [id number], L506.1000, L503.6620, L500.4050, L500.4100 #### [facility] [address] [place], [address] Nucleated RBC (Bld) [#/Vol] 0 10*3/uL Normal 0-5 [facility] Comment on above: Performed By: #### L 501.9940, L501.00701, L501.9520, L506.0400, L501.5200, L501.9985, L100.0100, [id number], L506.1000, L503.6620, L500.4050, L500.4100 #### [facility] [address] [place], [address] (362) Platelet mean volume (Bld) [Entitic vol] 11.1 fL Normal 6.2-12.0 [facility] Comment on above: Performed By: #### L 501.9940, L501.52736, L501.9520, L506.0400, L501.5200, L501.9985, L100.0100, [id number], L506.1000, L503.6620, L500.4050, L500.4100 #### [facility] [address] [facility] [place], [place], [phone] (035) Platelets (Bld) [#/Vol] 207 10*3/uL Normal 150-450 [facility] Comment on above: Performed By: #### L 501.9940, L501.37839, L501.9520, L506.0400, L501.5200, L501.9985, L100.0100, [id number], L506.1000, L503.6620, L500.4050, L500.4100 #### [facility] [address] [facility] [place], [place], [phone] (231) RBC (Bld) [#/Vol] 5.12 10*6/uL Normal 4.6-6.2 [facility] Comment on above: Performed By: #### L 501.9940, L501.60157, L501.9520, L506.0400, L501.5200, L501.9985, L100.0100, [id number], L506.1000, L503.6620, L500.4050, L500.4100 #### [facility] [address] [place], [address] RDW SD 41.5 fl Normal 35.1-43.9 [facility] Comment on above: Performed By: #### L 501.9940, L501.78942, L501.9520, L506.0400, L501.5200, L501.9985, L100.0100, [id number], L506.1000, L503.6620, L500.4050, L500.4100 #### [facility] [address] [place], [place], [id number] WBC (Bld) [#/Vol] 11.5 10*3/uL High 4.4-11.0 [facility] Comment on above: Performed By: #### L 501.9940, L501.76465, L501.9520, L506.0400, L501.5200, L501.9985, L100.0100, [id number], L506.1000, L503.6620, L500.4050, L500.4100 #### [facility] [address] [place], [place], [id number] Comprehensive Metabolic Prof uton 03-14-2023 Albumin [Mass/Vol] 3.7 g/dL Normal 3.2-5.0 [facility] Comment on above: Performed By: #### L 501.9940, L501.58110, L501.9520, L506.0400, L501.5200, L501.9985, L100.0100, [id number], L506.1000, L503.6620, L500.4050, L500.4100 #### [facility] [address] [place], [place], [id number] Albumin/Globulin [Mass ratio] 1.1 {ratio} Normal 0.9-2.4 [facility] Comment on above: Performed By: #### L 501.9940, L501.97842, L501.9520, L506.0400, L501.5200, L501.9985, L100.0100, [id number], L506.1000, L503.6620, L500.4050, L500.4100 #### [facility] [address] [place], [address] ALK P 86 U/L Normal 45-117 [facility] Comment on above: Performed By: #### L 501.9940, L501.02276, L501.9520, L506.0400, L501.5200, L501.9985, L100.0100, [id number], L506.1000, L503.6620, L500.4050, L500.4100 #### [facility] [address] [place], [place], [phone] (122) ALT [Catalytic activity/Vol] 56 U/L Normal 16-61 [facility] Comment on above: Performed By: #### L 501.9940, L501.06342, L501.9520, L506.0400, L501.5200, L501.9985, L100.0100, [id number], L506.1000, L503.6620, L500.4050, L500.4100 #### [facility] [address] [place], [place], [phone] (271) AST [Catalytic activity/Vol] 28 U/L Normal 15-37 [facility] Comment on above: Performed By: #### L 501.9940, L501.46627, L501.9520, L506.0400, L501.5200, L501.9985, L100.0100, [id number], L506.1000, L503.6620, L500.4050, L500.4100 #### [facility] [address] [place], [place], [phone] (109) Bilirubin [Mass/Vol] 0.20 mg/dL Normal 0.20-1.00 [facility] Comment on above: Result Comment: For patients on eltrombopag therapy, use of Dimension [place] TBIL is not recommended. Performed By: #### L 501.9940, L501.00901, L501.9520, L506.0400, L501.5200, L501.9985, L100.0100, [id number], L506.1000, L503.6620, L500.4050, L500.4100 #### [facility] [address] [place], [address] BUN/CRE 21.1 RATIO High 10-20 [facility] Comment on above: Performed By: #### L 501.9940, L501.60095, L501.9520, L506.0400, L501.5200, L501.9985, L100.0100, [id number], L506.1000, L503.6620, L500.4050, L500.4100 #### [facility] [address] [place], [place], [id number] CA,Total 9.0 mg/dL Normal 8.5-10.1 [facility] Comment on above: Performed By: #### L 501.9940, L501.84534, L501.9520, L506.0400, L501.5200, L501.9985, L100.0100, [id number], L506.1000, L503.6620, L500.4050, L500.4100 #### [facility] [address] [place], [address] Chloride [Moles/Vol] 112 mmol/L High 98-107 [facility] Comment on above: Performed By: #### L 501.9940, L501.50177, L501.9520, L506.0400, L501.5200, L501.9985, L100.0100, [id number], L506.1000, L503.6620, L500.4050, L500.4100 #### [facility] [address] [place], [address] CO2 [Moles/Vol] 25.0 mmol/L Normal 21.0-32.0 [facility] Comment on above: Performed By: #### L 501.9940, L501.57901, L501.9520, L506.0400, L501.5200, L501.9985, L100.0100, [id number], L506.1000, L503.6620, L500.4050, L500.4100 #### [facility] [address] [place], [place], [phone] (780) Creatinine [Mass/Vol] 0.90 mg/dL Normal 0.70-1.30 [facility] Comment on above: Result Comment: The validity of the calculated GFR GFRAA in patients over 70 years has not been determined. Clinical correlation is essential. Performed By: #### L 501.9940, L501.24002, L501.9520, L506.0400, L501.5200, L501.9985, L100.0100, [id number], L506.1000, L503.6620, L500.4050, L500.4100 #### [facility] [address] [place], [address] EST GFR - AA 116 mL/min Normal >60 [facility] Comment on above: Result Comment: Afri can Libyan GFR Calc Performed By: #### L 501.9940, L501.35021, L501.9520, L506.0400, L501.5200, L501.9985, L100.0100, [id number], L506.1000, L503.6620, L500.4050, L500.4100 #### [facility] [address] [place], [address] GAP 4 Low 5-15 [facility] Comment on above: Performed By: #### L 501.9940, L501.64231, L501.9520, L506.0400, L501.5200, L501.9985, L100.0100, [id number], L506.1000, L503.6620, L500.4050, L500.4100 #### [facility] [address] [facility] [place], [place], [phone] (257) GFR/1.73 sq M.predicted among non-blacks MDRD (S/P/Bld) [Vol rate/Area] 96 mL/min/{1.73_m2} Normal >60 [facility] Comment on above: Result Comment: Non- GFR Calc Performed By: #### L 501.9940, L501.34110, L501.9520, L506.0400, L501.5200, L501.9985, L100.0100, [id number], L506.1000, L503.6620, L500.4050, L500.4100 #### [facility] [address] [facility] [place], [place], [phone] (055) Globulin (S) [Mass/Vol] 3.3 g/dL Normal 2.2-4.2 [facility] Comment on above: Performed By: #### L 501.9940, L501.77343, L501.9520, L506.0400, L501.5200, L501.9985, L100.0100, [id number], L506.1000, L503.6620, L500.4050, L500.4100 #### [facility] [address] [place], [place], [phone] (572) Glucose [Mass/Vol] 86 mg/dL Normal 74-106 [facility] Comment on above: Performed By: #### L 501.9940, L501.22175, L501.9520, L506.0400, L501.5200, L501.9985, L100.0100, [id number], L506.1000, L503.6620, L500.4050, L500.4100 #### [facility] [address] [place], [address] Potassium [Moles/Vol] 4.0 mmol/L Normal 3.5-5.1 [facility] Comment on above: Performed By: #### L 501.9940, L501.35368, L501.9520, L506.0400, L501.5200, L501.9985, L100.0100, [id number], L506.1000, L503.6620, L500.4050, L500.4100 #### [facility] [address] [place], [address] Sodium [Moles/Vol] 141 mmol/L Normal 136-145 [facility] Comment on above: Performed By: #### L 501.9940, L501.56513, L501.9520, L506.0400, L501.5200, L501.9985, L100.0100, [id number], L506.1000, L503.6620, L500.4050, L500.4100 #### [facility] [address] [place], [place], [phone] (523) T PROT 7.0 g/dL Normal 6.4-8.2 [facility] Comment on above: Performed By: #### L 501.9940, L501.67414, L501.9520, L506.0400, L501.5200, L501.9985, L100.0100, [id number], L506.1000, L503.6620, L500.4050, L500.4100 #### [facility] [address] [place], [address] Urea nitrogen [Mass/Vol] 19 mg/dL High 7-18 [facility] Comment on above: Performed By: #### L 501.9940, L501.22624, L501.9520, L506.0400, L501.5200, L501.9985, L100.0100, [id number], L506.1000, L503.6620, L500.4050, L500.4100 #### [facility] [address] [place], [address] Determination of erythrocyte mean corpuscular volume (MCV)Ordered By: Deann Braun on 03-14-2023 MCV (RBC) [Entitic vol] 87.9 fL 80-94 [facility] Free T3on 03-14-2023 Free T3 [Mass/Vol] 2.8 pg/mL Normal 2.18-3.98 [facility] Comment on above: Performed By: #### L 501.9940, L501.74709, L501.9520, L506.0400, L501.5200, L501.9985, L100.0100, [id number], L506.1000, L503.6620, L500.4050, L500.4100 #### [facility] [address] [place], [address] Hematocrit Auto (Bld) [Volum e fraction]Ordered By: Deann Braun on 03-14-2023 Hematocrit (Bld) [Volume fraction] 45.0 % 40-54 [facility] Hemoglobin A1con 03-14-2023 HbA1c (Bld) [Mass fraction] 5.2 % Normal 3.8-5.6 [facility] Comment on above: Result Comment: Norm al < 5.7 % Prediabetic 5.7 - 6.4 % Diabetic >or= 6.5 % Please note range changes. Performed By: #### L 501.9940, L501.00169, L501.9520, L506.0400, L501.5200, L501.9985, L100.0100, [id number], L506.1000, L503.6620, L500.4050, L500.4100 #### [facility] [address] [place], [address] Insulinon 03-14-2023 Insulin 19.4 mU/L Normal 2.6-37.6 [facility] Comment on above: Performed By: #### L 501.9940, L501.47908, L501.9520, L506.0400, L501.5200, L501.9985, L100.0100, [id number], L506.1000, L503.6620, L500.4050, L500.4100 #### [facility] [address] [place], [address] Laboratory - Chemistry and C hemistry - challengeOrdered By: Deann Braun on 03-14-2023 ALP [Catalytic activity/Vol] 86 U/L 45-117 [facility] ALT [Catalytic activity/Vol] 56 U/L 16-61 [facility] CO2 [Moles/Vol] 25.0 mmol/L 21.0-32.0 [facility] Free T4 [Mass/Vol] 0.88 ng/dL 0.76-1.46 [facility] Globulin (S) [Mass/Vol] 3.3 g/dL 2.2-4.2 [facility] Magnesium [Mass/Vol] 2.2 mg/dL 1.6-2.6 [facility] Natriuretic peptide B (Bld) [Mass/Vol] 7.9 pg/mL 0-100 [facility] Urea nitrogen/Creatinine [Mass ratio] 21.1 mg/mg 10-20 [facility] Laboratory - Hematology and Cell countsOrdered By: Deann Braun on 03-14-2023 Erythrocyte distribution width (RBC) [Entitic vol] 41.5 fL 35.1-43.9 [facility] Erythrocyte distribution width (RBC) [Ratio] 12.8 % 11.6-14.6 [facility] Immature granulocytes/100 WBC (Bld) 0.500 % 0.0-0.9 [facility] Comment on above: IG% - Immature Granu locytes (promyelocytes, myelocytes and metamyelocytes) > 1% indicates that a LEFT SHIFT is Present. MCH (RBC) [Entitic mass] 28.5 pg 27.0-32.0 [facility] Nucleated RBC/100 WBC (Bld) [Ratio] 0 % 0-5 [facility] Lipid Profileon 03-14-2023 Cholesterol [Mass/Vol] 178 mg/dL Normal 200 [facility] Comment on above: Result Comment: <200 mg/dL Desirable 200-240 mg/dL Borderline >240 mg/dL High Risk Performed By: #### L 501.9940, L501.60525, L501.9520, L506.0400, L501.5200, L501.9985, L100.0100, [id number], L506.1000, L503.6620, L500.4050, L500.4100 #### [facility] [address] [place], [address] Cholesterol in HDL [Mass/Vol] 36 mg/dL Low [facility] Comment on above: Result Comment: The drugs N-Acetylcysteine and Metamizole may falsely depress this assay. Reference Range HDL <40 mg/dL Low HDL Cholesterol HDL >or= 60 mg/dL High HDL Cholesterol Performed By: #### L 501.9940, L501.39471, L501.9520, L506.0400, L501.5200, L501.9985, L100.0100, [id number], L506.1000, L503.6620, L500.4050, L500.4100 #### [facility] [address] [place], [address] Cholesterol in LDL [Mass/Vol] 128 mg/dL Normal 0-130 [facility] Comment on above: Performed By: #### L 501.9940, L501.98025, L501.9520, L506.0400, L501.5200, L501.9985, L100.0100, [id number], L506.1000, L503.6620, L500.4050, L500.4100 #### [facility] [address] [place], [address] Cholesterol in VLDL [Mass/Vol] 14 mg/dL Normal 5-40 [facility] Comment on above: Performed By: #### L 501.9940, L501.33373, L501.9520, L506.0400, L501.5200, L501.9985, L100.0100, [id number], L506.1000, L503.6620, L500.4050, L500.4100 #### [facility] [address] [place], [address] Triglyceride [Mass/Vol] 72 mg/dL Normal [facility] Comment on above: Result Comment: The drugs N-Acetylcysteine and Metamizole may falsely depress this assay. Serum Triglycerides Reference Interval Normal <150 mg/dL Borderline high 150 - 199 mg/dL High 200 - 499 mg/dL Very High > or = 500 mg/dL Performed By: #### L 501.9940, L501.90724, L501.9520, L506.0400, L501.5200, L501.9985, L100.0100, [id number], L506.1000, L503.6620, L500.4050, L500.4100 #### [facility] [address] [place], [place], [address] MCHC Auto (RBC) [Mass/Vol]Or dered By: Deann Braun on 03-14-2023 MCHC (RBC) [Mass/Vol] 32.4 g/dL 32-36 [facility] MR/BMS.[facility] 03-14-2023 MR/BMS.[facility] [address] [place] [address] OFFICE VISIT Date of Service: 03/14/23 MR#: [id number] Acct: [id number] Name: REGGIE REICH Christa Rep #: [id number] : 1975 Provider: Dr. Deann maloney MD Age/Sex: 48/M Location: 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 Normal [facility] Magnesiumon 03-14-2023 Magnesium [Mass/Vol] 2.2 mg/dL Normal 1.6-2.6 [facility] Comment on above: Performed By: #### L 501.9940, L501.04546, L501.9520, L506.0400, L501.5200, L501.9985, L100.0100, [id number], L506.1000, L503.6620, L500.4050, L500.4100 #### [facility] [address] [place], [address] No Panel InformationOrdered By: Deann Braun on 03-14-2023 Estimated GFR (MDRD) Amer 116 mL/min >60 [facility] Comment on above: GFR Calc Estimated GFR (MDRD) Non-Af Amer 96 mL/min >60 [facility] Comment on above: Non- GFR Calc Free Triiodothyronine (T3) pg/dL 2.8 pg/mL 2.18-3.98 [facility] Insulin Level 19.4 mU/L 2.6-37.6 [facility] Prostate Specific Antigen Total 6.49 ng/mL 0.0-4.0 [facility] Comment on above: This test was perfor med using the TPSA assay method for [employer] system. Values obtained with differentassay methods cannot be used interchangably.When changing PSA assays in the course of monitoring apatient, additional sequential testing should be carriedout to confirm baseline values. Thyroid Stimulating Hormone (TSH) 1.32 uIU/mL 0.358-3.74 [facility] Vitamin D 25-Hydroxy 30.7 ng/mL [facility] Comment on above: Vitamin D 25(OH) Sta tus Range Deficiency <20 ng/mL (50nmol/L) Insufficiency 20 - 30 ng/mL (50 - 75 nmol/L) Sufficiency 30 - 100 ng/mL (75 - 250 nmol/L) Toxicity >100 ng/mL (>250 nmol/L) PSA,Total- Diagnosticon 02-18 PSA, DIAGNOSTIC 6.49 ng/mL High 0.0-4.0 [facility] Comment on above: Result Comment: This test was performed using the TPSA assay method for the Dimension chemistry system. Values obtained with different assay methods cannot be used interchangably. When changing PSA assays in the course of monitoring a patient, additional sequential testing should be carried out to confirm baseline values. Performed By: #### L 501.9940, L501.92183, L501.9520, L506.0400, L501.5200, L501.9985, L100.0100, [id number], L506.1000, L503.6620, L500.4050, L500.4100 #### [facility] [place], [address] Platelets bldOrdered By: Erin Braun on 03-14-2023 Platelets (Bld) [#/Vol] 207 10*3/uL 150-450 [facility] Serum or plasma albumin rhonda urement (mass/volume)Ordered By: Deann Braun on 03-14-2023 Albumin [Mass/Vol] 3.7 g/dL 3.2-5.0 [facility] Serum or plasma albumin/glob ulin mass ratioOrdered By: Deann Braun on 03-14-2023 Albumin/Globulin [Mass ratio] 1.1 {ratio} 0.9-2.4 [facility] Serum or plasma calcium rhonda urement (mass/volume)Ordered By: Deann Braun on 03-14-2023 Calcium [Mass/Vol] 9.0 mg/dL 8.5-10.1 [facility] Serum or plasma cholesterol in HDL measurement (mass/volume)Ordered By: Deann Braun on 03-14-2023 Cholesterol in HDL [Mass/Vol] 36 mg/dL >40 [facility] Comment on above: The drugs N-Acetylcy steine and Metamizole may falsely depress this assay. Reference Range HDL <40 mg/dL Low HDL Cholesterol HDL >or= 60 mg/dL High HDL Cholesterol Serum or plasma cholesterol in VLDL measurement (mass/volume)Ordered By: Deann Braun on 03-14-2023 Cholesterol in VLDL [Mass/Vol] 14 mg/dL 5-40 [facility] Serum or plasma creatinine m easurement (mass/volume)Ordered By: Deann Braun on 03-14-2023 Creatinine [Mass/Vol] 0.90 mg/dL 0.70-1.30 [facility] [place] [facility] Comment on above: The validity of the calculated GFR & GFRAA in patients over 70 years has not been determined. Clinical correlation is essential. Serum or plasma low density lipoprotein (LDL) cholesterol measurement (mass/volume)Ordered By: Deann Braun on 03-14-2023 Cholesterol in LDL [Mass/Vol] 128 mg/dL 0-130 [facility] Serum or plasma urea nitroge n measurement (mass/volume)Ordered By: Deann Braun on 03-14-2023 Urea nitrogen [Mass/Vol] 19 mg/dL 7-18 [facility] T4 Free Directon 03-14-2023 T4 FREE DIRECT 0.88 ng/dL Normal 0.76-1.46 [facility] Comment on above: Performed By: #### L 501.9940, L501.94648, L501.9520, L506.0400, L501.5200, L501.9985, L100.0100, [id number], L506.1000, L503.6620, L500.4050, L500.4100 #### [facility] [address] [place], [place], [id number] Thin prep Papanicolaou smear with manual screeningOrdered By: Deann Braun on 03-14-2023 Thin prep Papanicolaou smear with manual screening 28 U/L 15-37 [facility] Thin prep Papanicolaou smear with manual screening 4 5-15 [facility] Thyroid Stim Hormone (TSH)on 03-14-2023 TSH 1.32 uIU/mL Normal 0.358-3.74 [facility] Comment on above: Performed By: #### L 501.9940, L501.53121, L501.9520, L506.0400, L501.5200, L501.9985, L100.0100, [id number], L506.1000, L503.6620, L500.4050, L500.4100 #### [facility] [address] [place], [place], [address] Vitamin D,25 Hydroxyon 03-14 Vitamin D 25-OH 30.7 ng/mL Normal [facility] Comment on above: Result Comment: Meli min D 25(OH) Status Range Deficiency <20 ng/mL (50nmol/L) Insufficiency 20 - 30 ng/mL (50 - 75 nmol/L) Sufficiency 30 - 100 ng/mL (75 - 250 nmol/L) Toxicity >100 ng/mL (>250 nmol/L) Performed By: #### L 501.9940, L501.44051, L501.9520, L506.0400, L501.5200, L501.9985, L100.0100, [id number], L506.1000, L503.6620, L500.4050, L500.4100 #### [facility] [address] [place], [place], [address] Whole blood hemoglobin A1c/t otal hemoglobin ratio (mass fraction)Ordered By: Deann Braun on 03-14-2023 HbA1c (Bld) [Mass fraction] 5.2 % 3.8-5.6 [facility] Comment on above: Normal < 5.7 % Predi abetic 5.7 - 6.4 % Diabetic >or= 6.5 % Please note range changes. CNOVon 05-10-2017 CNOV Office Visit (GENSWS) -------REGGIE REICH ([id number]) 1975 MDate Time Provider Department05/10/17 8:00 AM GARRETT HOOD) ERIC During your visit today, we recorded the following information about you:Garrett Hood PA-C 05/10/2017 8:26 AM Signed-Prevpac for 2 weeks-Once finished with Prevpac, resume omeprazole-Follow up in 3 months for recheck and to schedule follow-up EGDThe following instructions are important for you related to your office visittoday with the [facility].INSTRUCTIONS FOLLOWING A NORMAL COLONOSCOPY W/ [...] concerns, you shouldcontact our office immediately @ [phone] and [facility].Garrett Hood PA-C 05/10/2017 11:02 AM SignedFOLLOW UP VISIT - ENDOSCOPYNAME: Reggie ReichYVESWILLY NO.: [id number] OF SERVICE: 05/10/2017DOB: 1975REFERRING PHYSICIAN: Suzanne PcpReggie [...] eosinophils per high power field), see comment.BRIAN/katherine 05/02/20170867HRBMEPA1, 3. Sections show hyperplastic squamous esophageal mucosa [...] with more than 50% of the total szpc-ns-diwltfsh of the visit in counseling / coordination of care. IRVING Borjas-CReferring Provider: JOSE BECKWITH [[id number]]Allergies As of Date: 05/10/2017(No Known Allergies)Date Reviewed: [...] to your office visit today with the [facility]. INSTRUCTIONS FOLLOWING A NORMAL COLONOSCOPY [...] you should contact our office immediately @ [phone] and ask to be transferred to the [...] 14 days.Follow-up and Disposition History RecordedEncounter Number: [id number] Status:Closed by GARRETT HOOD PA-C on 05/10/17 [facility] PROGRESSon 05-10-2017 PROGRESS HNO ID: [id number] thor: Garrett (Irving) GrafService: (none)Author Type: Physician AssistantType: Progress NotesFiled: 05/10/2017 11:02 AMNote Text:FOLLOW UP VISIT - ENDOSCOPYNAME: Reggie Wilhelm NO.: [id number] OF SERVICE: 05/10/2017DOB: 1975REFERRING PHYSICIAN: Suzanne PcpJerry [...] eosinophils per high power field), see comment.BRIAN/katherine 05/02/20179550TWZMCFE0, 3. Sections show hyperplastic squamous esophageal mucosa [...] visit, with more than 50% of the tvcbdohca-sq-jkww time of the visit in counseling / coordination of care. Garrett Hood PA-C Normal [facility] CNCOon 05-01-2017 CNCO Letter TextHow to ac tivate your [employer] Account 1. Review the [employer] Activation Steps at [email or web address] 2. You will use this custom, gxt-tayi-ivx activation code to set up account: [email or web address] 3. This access code is good only for 60 days.Dear Reggie Reich:Thank you for your recent request to activate your [facility] [employer]?account. The following information will be necessary to access your accountfor the first time:Information needed for sign-up:Your custom activation code used one-time only for the initial accountset-up.Your date of birthThe last 4 digits of your social security numberWhat to do next:Fill in the requested information on the Identify Yourself Form [email or web address] , click Next.Create your login and password, choose a [employer] ID and password that willbeeasy for you to use, but impossible for anyone else to guess.Pick a security question that will assist you in the event you forget yourpassword the next time you log-on.If you have difficulty activating your account, please call our yWorld at [phone] or toll free at .We hope you enjoy using [employer]!Kindest Regards,[facility] [employer] Team Normal [facility] HISTORY PHYSICALon 7 HISTORY PHYSICAL HNO ID: [id number] thor: Jose Ceronervice: General SurgeryAuthor Type: PhysicianType: [...] issues with [facility] foreign bodies. [facility] [...] 142/98, pulse 90, height 182.9 cm (6'), uqjzoa473.8 kg (231 lb). Body mass index is [...] thetesting has been completed.? Jose Beckwith MD [facility] NURSING PROGon 05-01-2017 NURSING PROG HNO ID: [id number] thor: Andra Angulo Rn: (none)Author Type: Registered NurseType: Nursing Progress NoteFiled: 05/01/2017 11:23 AMNote Text:Patient did not experience a fall prior to discharge.Patient did not experience a burn prior to discharge.Jaclyn Bell RN [facility] NURSING PROG HNO ID: [id number] thor: Andra Angulo Rn: (none)Author Type: Registered NurseType: Nursing Progress NoteFiled: 05/01/2017 11:04 AMNote Text:Patient became quite pale and felt abdominal cramping. Patient back downto left side and warm blanket to abdomen. Patient able to pass flatus.Jaclyn Bell RN [facility] NURSING PROG HNO ID: [id number] thor: Andra Angulo Rn: (none)Author Type: Registered NurseType: Nursing Progress NoteFiled: 05/01/2017 10:41 AMNote Text: Patient arrived to PACU, on left side, abdomen soft. Patient restingcomfortably.Jaclyn Bell RN [facility] NURSING PROG HNO ID: [id number] thor: Andra Peters Rn: NursingAuthor Type: Registered NurseType: Nursing Progress NoteFiled: 05/01/2017 10:27 AMNote Text:Preoperative order for IV Antibiotic Prophylaxis is N/A.Patient did not experience a fall within the Intraoperative proceduralarea.Patient did not experience a burn within the Intraoperative proceduralarea.Sharon Soriano RN [facility] NURSING PROG HNO ID: [id number] thor: Andra Angulo Rn: (none)Author Type: Registered [...] allquestions were answered.Jaclyn Bell RNCrystbrittany Bell RN [facility] PT EDon 05-01-2017 PT ED HNO ID: [id number] thor: Andra Angulo Rn: (none)Author Type: Registered [...] Jaclyn Bell RN In Department: AMBULATORYSURGERY Normal [facility] SURGICAL PATHOLOGYon 017 SURGICAL PATHOLOGY [facility]: [id number] Physician: JOSE BECKWITH ([id number]) F INAL DIAGNOSIS1. [...] eosinophils per high power field), see comment.BRIAN/katherine 05/02/20178721BUWWVBL9, 3. Sections show hyperplastic squamous esophageal mucosa [...] submitted in one cassette.Gross examination performed at [facility], [address] [place], [place] [id number] 05/02/2017 2:11:23 AMPatient ID #: [id number] of Report: 05/02/2017Date of Procedure: 05/01/2017Date of Receipt: 05/01/2017Submitted by: JOSE BECKWITH ([id number])Location: [id number] interpretation performed at [place] [address]. Normal [facility] Comment on above: Performed By: #### P ATHS ####[facility] [place], [place] [id number] PROGRESSon 04-13-2017 PROGRESS HNO ID: [id number] thor: Jose Ceronervice: (none)Author Type: PhysicianType: Progress [...] issues with esophageal foreign bodies. [facility] with [...] 142/98, pulse 90, height 182.9 cm (6'), ypqvbe228.8 kg (231 lb). Body mass index is [...] thetesting has been completed. Jose Beckwith MD [facility] CNOVon 04-12-2017 CNOV Office Visit (GENSWS) -------DAMIRREGGIE ([id number]) 1975 [facility] Time Provider Department04/12/17 8:00 AM JOSE [...] solution until the day before your colonoscopy.Designated Personal Development Mentor on the Day of Your ExamA responsible family member or friend MUST come with you to your colonoscopyand REMAIN in the endoscopy area until you are discharged! You are NOT ALLOWEDto drive, take a taxi or bus, or leave the Endoscopy Center ALONE.If you do not have a responsible retail delivery driver (family member or friend) with you [...] carbonated beverages such as gayla lucio or lemon-[place] soda;Gatorade? or other sports drinks (not red); [...] are calling after 5:00PM, please call Nurse diamond powder technician at [phone].COLONOSCOPY PROCEDURE OVERVIEWPlease read prior to the procedureWhat [...] If the nausea persists, please contact nurse pressure controller [phone].You may experience skin irritation around the anus [...] quicklypasses.If sedation has been given, a responsible retail delivery driver (a family member or friend)must drive [...] colon cancer [Z80.0]Order(s):BO PT ED DIGESTIVE DISEASES [7854297] Order #: [id number]. #:[id number] -CCQty: 1 peg 3350-Electrolytes (GOLYTELY) 236-22.74-6.74 -5.86 gram suspensionTake 4,000 mL by mouth one time only for 1 dose. Refer to printed prep instructions from your doctor.Disp: 1 BottleRfl: 0 EGD [2900210] Order #: [id number] FUTURE COLONOSCOPY, SCREENING, HIGH RISK [Q8483BKB] Order #: [id number] FUTUREPrescriptions as of 04/12/2017 Sig: PEG 3350-ELECTROLYTES [...] until the day before your colonoscopy. Designated Personal Development Mentor on the Day of Your Exam A responsible family member or friend MUST come with you to your colonoscopy and REMAIN in the endoscopy area until you are discharged! You are NOT ALLOWED to drive, take a taxi or bus, or leave the Endoscopy Center ALONE. If you do not have a responsible retail delivery driver (family member or friend) with you [...] carbonated beverages such as gayla lucio or lemon-perry[place] soda; Gatorade? or other sports drinks (not [...] calling after 5:00 PM, please call Nurse diamond powder technician at [phone]. COLONOSCOPY PROCEDURE OVERVIEW Please read prior to [...] If the nausea persists, please contact nurse pressure controller at [phone]. You may experience skin irritation around the [...] If sedation has been given, a responsible retail delivery driver (a family member or friend) must [...] by JOSE BECKWITH MD on 04/12/17 Normal [facility] HOSP 04-12-2017 HOSP Patient:Laz ReichN : [...] scheduled 05-01-2017 [facility]un [facility]ñez Surg CoordProgress Notes ([facility] WS):Jose Beckwith MD 04/12/2017 8:31 AM SignedCONSCIOUS [...] solution until the day before your colonoscopy.Designated Personal Development Mentor on the Day of Your ExamA responsible family member or friend MUST come with you to your colonoscopy andREMAIN in the endoscopy area until you are discharged! You are NOT ALLOWED todrive, take a taxi or bus, or leave the Endoscopy Center ALONE.If you do not have a responsible retail delivery driver (family member or friend) with you [...] carbonated beverages such as gayla lucio or lemon-[place] soda;Gatorade? or other sports drinks (not red); [...] are calling after 5:00 PM,please call Nurse diamond powder technician at [phone].COLONOSCOPY PROCEDURE OVERVIEWPlease read prior to the procedureWhat [...] If the nausea persists, please contact nurse pressure controller [phone].You may experience skin irritation around the anus [...] quicklypasses.If sedation has been given, a responsible retail delivery driver (a family member or friend)must drive [...] issues withesophageal foreign bodies. He presented to [facility] restarted onAugust 2016 with a chicken [...] 1 dose. [facility]No current facility-administered medications for this visit.ALLERGIES: [...] thetesting has been completed. Jose Beckwith MD [facility] PROGRESSon 04-07-2017 PROGRESS HNO ID: [id number] thor: Jose Ceronervice: (none)Author Type: PhysicianType: Progress NotesFiled: 04/08/2017 12:01 PMNote Text:OPERATIVE NOTATION FOR [facility] SURGICAL PROCEDURE.March 30, 2017Jerry Damir 1975 [id number] malePROCEDURE: EGD WITH REMOVAL OF FOREIGN BODY - 13359-ZPIXRVM: Stacie Beckwith M.D. FACS MANAGEMENT INTERNSHIP: NoneDEPT: SHELBY PROVIDER: [id number] Beckwith MD POS: [id number]: (T18.108A) Esophageal foreign body, initial encounter (primaryencounter diagnosis)ASA CLASS: 2E - mild emergencyFINDINGS:COMPLICAT IONS: NonePMHx -PAST MEDICAL HISTORYDiagnosis Date- Foreign body in esophagusCOMORBIDITIES - NonePost Op Occurrences - NoneWound Classification - Clean ContaminatedOperative note dictated in the [facility] dictationsystem.Jose Beckwith MD Normal [facility] CNOPon 03-30-2017 CNOP Operative Note (Enc) (GENSWS) -------Progress Notes:Jose Beckwith MD 04/08/2017 12:01 PM SignedOPERATIVE NOTATION FOR [facility].March 30, 2017Jerry Ray 1975 [id number] malePROCEDURE: EGD WITH REMOVAL OF FOREIGN BODY - 97637-VPDIPXL: Stacie Beckwith M.D. FACS MANAGEMENT INTERNSHIP: NoneDEPT: SHELBY PROVIDER: [id number] Beckwith MD POS:[id number] : (T18.108A) Esophageal foreign body, initial encounter (primaryencounter diagnosis)ASA CLASS: 2E - mild emergencyFINDINGS:COMPLICAT IONS: NonePMHx -PAST MEDICAL HISTORYDiagnosis Date- Foreign body in esophagusCOMORBIDITIES - NonePost Op Occurrences - NoneWound Classification - Clean ContaminatedOperative note dictated in the [facility] dictation system.Jose Beckwith MDEncounter Status:Closed by JOSE BECKWITH MD on 04/08/17Encounter Number: [id number] Normal [facility] Vital Signs Date Time Vital Sign Value Performing Clinician Bobbyi daniel 03-14-2023 08:05-0400 Body height 182.[address] Deann Braun Work Phone: [facility] 03-14-2023 08:05-0400 Body mass index (BMI) [Ratio] 34.7 kg/m2 Dr. Deann Braun Work Phone: [facility] 03-14-2023 08:05-0400 Body temperature 98.3 [degF] Dr. Deann Braun Work Phone: [facility] 03-14-2023 08:05-0400 Body weight 116.[address] Deann Braun Work Phone: [facility] 03-14-2023 08:05-0400 Diastolic blood pressure 92 mm[Hg] Dr. Deann Braun Work Phone: [facility] 03-14-2023 08:05-0400 Heart rate 86 /min Dr. Deann Braun Work Phone: [facility] 03-14-2023 08:05-0400 Respiratory rate 16 /min Dr. Deann Braun Work Phone: [facility] 03-14-2023 08:05-0400 SaO2% (BldA) [Mass fraction] 96 % Dr. Deann Braun Work Phone: [facility] 03-14-2023 08:05-0400 Systolic blood pressure 147 mm[Hg] Dr. Deann Braun Work Phone: [facility] Encounters Encounter Date Encounter Type Care Provider Facility Start: 12-18-2023 End: 12-18-2023 Patient encounter procedure [facility] Work Phone: Start: 12-18-2023 End: 12-18-2023 ambulatory [facility] Work Phone: Start: 06-14-2023 End: 06-14-2023 ambulatory Deann Braun Facility:[facility] Start: 03-14-2023 End: 03-14-[address] Deann Braun Work Phone: [facility] Work Phone: Start: 03-14-2023 End: 03-14-[address] Deann Braun Work Phone: [facility] Work Phone: Start: 03-14-2023 End: 03-14-[address] Deann Braun Work Phone: [facility] Work Phone: Start: 05-10-2017 End: 05-10-2017 Ambulatory GARRETT HOOD ([place]) [facility] Start: 05-01-2017 End: 05-01-2017 Ambulatory JOSE BECKWITH [facility] Start: 04-12-2017 End: 04-13-2017 Ambulatory JOSE Raymundo BRYANTAMENA [facility] Plan of Treatment Date Care Activity Detail Author Start: 03-14-2023 Evaluation of diagno stic study results [facility] Polysomnography [facility] Immunizations Immunization Date Immunization Notes Care Provider Fa cility 08-29-2021 influenza, injectabl e, quadrivalent, preservative free [facility] 08-29-2021 influenza, seasonal, injectable Dr. Deann Braun Work Phone: [facility] 05-01-2021 tetanus toxoid, redu charity diphtheria toxoid, and acellular pertussis vaccine, adsorbed Dr. Deann Braun Work Phone: [facility] Payers Date Payer Category Payer Self-pay [id number] 2023 Unknown [id number] Unknown [id number] [id number] [id number] Unknown [id number] 2.16.8 [id number] Unknown [id number] 2.16.8 [id number] Unknown [id number] 2.16.8 [id number] Social History Date Type Detail Facility Start: 03-14-2023 Tobacco smoking stat [facility] Unknown if ever smoked [facility] Start: 1975 Sex Assigned At Male [facility] Evaluation note Note Date & Type Note Facility Evaluation note Diagnosis Onset Date Dyspnea on exertion acute Elevated LFTs acute Elevated PSA acute Insulin resistance acute Obesity (BMI 30.0-34.9) acut e Sleep apnea acute URI (upper respiratory infection) acute Weight gain acute [facility] Work Phone: Evaluation note Note Date & Type Note Facility Evaluation note No assessment information availa ble [facility] Work Phone: Summary Purpose Family History No [...] Will No August 23 12:45am Power of Order Clerk No August 23 022 12:45am Chief Complaint [...] section and content) DATE CREATED AUTHOR 02/13/2018 [facility] DATE CREATED AUTHOR AUTHOR'S ORGANIZ ATION 12/30/2023 [facility] Care Teams (unrecognized sec tion and [...] BE BASED ON THE PRIMARY CLINICAL RECORDS. [employer] [facility]. provides no warranty or guarantee of the accuracy or completeness of information in this document.
[2025-08-16 19:06] VITALS: BP 136/78; PULSE 76; RESP 18; TEMP 37.1; O2SAT 99
== END 2025-08-16 19:07 | disposition home or self-care (01) ==
PROVIDERS: Emergency Provider Emergency Medicine; PCP Internal Medicine; Visit Provider Emergency Medicine
DX: Z46.6 Encounter for fitting and adjustment of urinary device (principal); N40.1 Benign prostatic hyperplasia with lower urinary tract symptoms; R33.8 Other retention of urine
CPT/HCPCS: 99282